=== PATIENT | male | born 1955 | race American Indian/Alaskan Native ===

== ENCOUNTER 2016-07-10 09:35 | Day surgery (SDC) | payer MEDICAID ==
[2016-07-10 10:06] VITALS: BP 132/104
[2016-07-10] MEDS ORDERED: DIPRIVAN 10 MG/ML IV ONE (10:32)
== END 2016-07-10 10:45 | disposition home or self-care (01) ==
LOC: OPU 09:35 → EDSTATUS 10:00 → OPU 10:45
PROVIDERS: ATTEND Internal Medicine Cardiovascular Disease
DX: I48.92 Unspecified atrial flutter (principal); Z53.8 Procedure and treatment not carried out for other reasons; I48.91 Unspecified atrial fibrillation; I42.9 Cardiomyopathy, unspecified; I34.0 Nonrheumatic mitral (valve) insufficiency; B19.20 Unspecified viral hepatitis C without hepatic coma; I12.0 Hypertensive chronic kidney disease with stage 5 chronic kidney disease or end stage renal disease; N18.6 End stage renal disease; Z99.2 Dependence on renal dialysis; Z82.49 Family history of ischemic heart disease and other diseases of the circulatory system
CPT/HCPCS: 93005; 93010; J2704

== ENCOUNTER 2016-09-23 15:41 | Inpatient (IN) | payer MEDICAID ==
[2016-09-23 16:45] LABS: Basophils % (Auto) 0.4 % (0.0-1.8); Eosinophils % (Auto) 0.4 % (0.0-4.3); Hematocrit 43.3 % (35.5-45.6); Hemoglobin 13.9 gm/dl (11.8-15.2); Mean Corpuscular HGB Conc 32 % (32-34); Mean Corpuscular Hemoglobin 30 pg (28-32); Mean Corpuscular Volume 92 fl (84-94); Platelet Count 161 K/mm3 (140-440); Red Blood Count 4.72 M/mm3 (3.65-5.03); Red Cell Distribution Width 15.6 % (13.2-15.2)
[2016-09-23 17:04] LABS: BUN/Creatinine Ratio 5.44; Calcium 9.1 mg/dL (8.4-10.2); Chloride 94.2 mmol/L (98-107); Potassium 5.6 mmol/L (3.6-5.0)
[2016-09-23] MEDS ORDERED: KIONEX PO ONE (22:17)
[2016-09-23] MEDS ORDERED: PROVENTIL IH ONE (22:17)
--- NOTE | 2016-09-23 22:28 | Emergency Department Report ---
HPI - General Chief Complaint: Syncope Time Seen by Provider: 09/23/16 21:52 - HPI HPI: This is a 61-year-old Afro-[place] male presents to the emergency department from home with complaint of multiple episodes of dizziness and one episode of syncope. Patient says that he has been feeling dizzy and hot and around 2:00 this afternoon he passed out on his way to the bathroom. He woke up and was calling for his nephew but they were not there. He was eventually able to get the attention of someone outside of his house and/or apartment who called EMS. Patient currently just complains of some intermittent dizziness but denies any chest pain, headache, vision change or any neurological deficits. Patient had some shortness of breath just prior to passing out as well. The patient is end- stage renal disease on Thursday, Thursday and Thursday but says he has missed his last dialysis session and last had it on Thursday. His repair operator is Dr. Dunn and his hot blast worker is Dr. [email or web address]. He has not taken anything for symptoms prior to presentation. The patient has a history of atrial fibrillation and is on Eloquist, as he has been for the last month, and says he takes it compliantly. He also has a history of CHF, hypertension. He gets dialysis from a right chest port. ED Past Medical Hx - Past Medical History Previous Medical History?: Yes Hx Hypertension: Yes Hx Congestive Heart Failure: Yes Hx Renal Disease: Yes (ESRD dailysis M,W, F) Hx HIV: No Additional medical history: ATRIAL FIB. SINUS TACHYCARDIA - Surgical History Past Surgical History?: Yes Additional Surgical History: PD access to left lower abdomen. hernia repair, permacath - Social History Smoking Status: Never Smoker Substance Use Type: None - Medications Home Medications: Home Medications Medication Instructions Recorded Confirmed Last Taken Type Apixaban [Eliquis] 2.5 mg PO QDAY #30 tablet 08/08/16 09/23/16 Rx Losartan [Cozaar] 50 mg PO QDAY #30 tablet 08/08/16 09/23/16 Rx Metoprolol Tartrate [Lopressor] 50 mg PO TID #90 tablet 08/08/16 09/23/16 Rx amLODIPine [Norvasc] 10 mg PO DAILY #30 tablet 08/08/16 09/23/16 Rx oxyCODONE /ACETAMINOPHEN [Percocet 1 tab PO Q6H PRN #10 tablet 08/08/16 Rx 5/325 mg] Cinacalcet [Sensipar] 30 mg PO QDAY 09/23/16 09/23/16 09/23/16 History Ondansetron [Zofran TAB] 4 mg PO Q8HR PRN 09/23/16 09/23/16 09/23/16 History ED Review of Systems ROS: Stated complaint: SOB/PASSED OUT Other details as noted in HPI Comment: All other systems reviewed and negative Constitutional: denies: chills, fever Eyes: denies: eye pain, eye discharge, vision change ENT: denies: ear pain, throat pain Respiratory: shortness of breath. denies: cough Cardiovascular: syncope. denies: chest pain Gastrointestinal: denies: abdominal pain, nausea, diarrhea Genitourinary: denies: urgency, dysuria Musculoskeletal: denies: back pain, joint swelling, arthralgia Skin: denies: rash, lesions Neurological: other (dizziness, lightheadedness). denies: numbness Physical Exam - Physical Exam Vital Signs: Vital Signs 09/23/16 09/23/16 09/23/16 16:08 21:44 21:46 Temperature 97.4 F L Pulse Rate 59 L 103 H 111 H Respiratory 24 27 H 16 Rate Blood Pressure 112/80 O2 Sat by Pulse 96 Oximetry 09/23/16 09/23/16 09/23/16 21:50 21:56 22:01 Temperature Pulse Rate 97 H 107 H Respiratory 23 23 Rate Blood Pressure O2 Sat by Pulse 85 99 Oximetry Physical Exam: GENERAL: The patient is well-developed well-nourished. HEENT: Normocephalic. Atraumatic. Extraocular motions are intact. Patient has moist mucous membranes. Pupils equal reactive to light bilaterally. No nystagmus. NECK: Supple. Trachea is midline. CHEST/LUNGS: Coarse breath sounds with the chest. No tachypnea or accessory muscle use. There is a right-sided chest wall port. There is no respiratory distress noted. HEART/CARDIOVASCULAR: Regular. There is no tachycardia. There is no gallop rub or murmur. ABDOMEN: Abdomen is soft, nontender. Patient has normal bowel sounds. There is no abdominal distention. SKIN: Skin is warm and dry. NEURO: The patient is awake, alert, and oriented. The patient is cooperative. The patient has no focal neurologic deficits. The patient has normal speech. Cranial nerves II through XII grossly intact. No pronator drift. No dysmetria. MUSCULOSKELETAL: There is no tenderness or deformity. There is no limitation range of motion. There is no evidence of acute injury. ED Course Vital Signs 09/23/16 09/23/16 09/23/16 16:08 21:44 21:46 Temperature 97.4 F L Pulse Rate 59 L 103 H 111 H Respiratory 24 27 H 16 Rate Blood Pressure 112/80 O2 Sat by Pulse 96 Oximetry 09/23/16 09/23/16 09/23/16 21:50 21:56 22:01 Temperature Pulse Rate 97 H 107 H Respiratory 23 23 Rate Blood Pressure O2 Sat by Pulse 85 99 Oximetry - Consultations Consultation #1: I spoke with Dr. Hughes, the repair operator on-call for the patient's nephrology service, who agrees with the plan for Kayexalate, albuterol and the patient will get dialysis tomorrow. 09/23/16 23:21 ED Medical Decision Making - Lab Data Result diagrams: 09/23/16 16:30 09/23/16 16:30 - EKG Data -: EKG Interpreted by Me EKG shows normal: axis, intervals, QRS complexes, ST-T waves (T-wave inversions to the lateral leads) Rate: normal - EKG Data When compared to previous EKG there are: changes noted (previous EKG was sinus rhythm while current EKG is atrial fibrillation) Interpretation: other (atrial fibrillation with normal rate, normal axis, T- wave inversion to the lateral leads) - Radiology Data Radiology results: report reviewed, image reviewed interpreted by me: Chest x-ray shows mild cardiomegaly but no obvious pleural effusions or pneumonia. CT of the head does not show any acute process including no hemorrhage, mass, shift, diffuse edema or skull fracture. There is some cerebral and cerebellar atrophy. - Medical Decision Making 61-year-old male presents the emergency department with complaint of dizziness as well as one episode of syncope. Patient missed his last dialysis session. Labs show some hypokalemia for which he was given Kayexalate and albuterol. CT of the head does not show any acute intercranial process. Chest x-ray does not show severe volume overload. Nephrology is aware and Dr. Hughes has said the patient will get dialysis tomorrow. Patient's vital signs stable throughout his ED course. Patient will be admitted to hospital for further evaluation and treatment and has been accepted for admission by the hospitalist, Dr. Martini. - Differential Diagnosis vasovagal, orthostatic hypertension, TIA, brain bleed, hyperkalemia Critical Care Time: No Critical care attestation.: If time is entered above; I have spent that time in minutes in the direct care of this critically ill patient, excluding procedure time. ED Disposition Clinical Impression: End-stage renal disease needing dialysis, Hyperkalemia, Dizziness Syncope Qualifiers: Syncope type: unspecified Qualified Code(s): R55 - Syncope and collapse Disposition: OP ADMITTED IP TO THIS HOSP Is pt being admited?: Yes Condition: Stable Time of Disposition: 01:03
--- NOTE | 2016-09-23 23:06 | Cat Scan Report ---
FINAL REPORT EXAM: CT HEAD/BRAIN WO CON HISTORY: Syncope TECHNIQUE: Standard unenhanced CT of the head at 5.0 millimeter axial increments. PRIORS: None. FINDINGS: The ventricular system is normal in size and configuration. There is mild cerebral and cerebellar atrophy. There is no evidence for mass lesion, mass effect, midline shift, acute intracranial hemorrhage, or acute ischemia/ infarction. No evidence for acute skull fracture is seen. No abnormality in the overlying scalp soft tissues is seen. Visualized paranasal sinuses are clear. IMPRESSION: No acute intracranial process noted. Cerebral and cerebellar atrophy
[2016-09-24] MEDS ORDERED: DULCOLAX PR PRN (00:27)
[2016-09-24] MEDS ORDERED: TYLENOL PO PRN (00:27)
[2016-09-24] MEDS ORDERED: ZOFRAN IV PRN (00:27)
[2016-09-24] MEDS ORDERED: MILK OF MAGNESIA PO PRN (00:27)
[2016-09-24] MEDS ORDERED: PERCOCET 5/325 PO PRN (00:33)
--- NOTE | 2016-09-24 00:40 | History and Physical Report ---
History of Present Illness Date of examination: 09/24/16 History of present illness: 61-year-old man with a history of A. fib/flutter, hypertension, hyperlipidemia, end-stage renal disease on dialysis comes emergency room with complaints of shortness of breath. The patient missed his dialysis today because he had to go to court. Patient states that this morning at 3 AM he took all his medication, his blood pressure prior to taking the medication was systolic 127. Several minutes later, patient felt hot, he got up out of bed to use the bathroom and had a syncopal episode, it's unclear how long he passed out for Patient denies chest pain, palpitation, shortness of breath, cough, abdominal pain, hematochezia, dysuria, frequency, focal weakness, dysarthria, fever chills , polydipsia polyuria, hot or cold intolerance, easy bruisability, or rash or bleeding from mucosal membrane, rhinorrhea, epistaxis, earache, tinnitus, blurry vision, eye discharge, anxiety, depression. Other review of systems negative PAST SURGICAL HISTORY: Hernia repair SOCIAL HISTORY: Denies alcohol, tobacco, drugs FAMILY HISTORY: Hypertension Medications and Allergies Allergies Allergy/AdvReac Type Severity Reaction Status Date / Time hydralazine Allergy Unknown Verified 08/07/16 09:21 Home Medications Medication Instructions Recorded Confirmed Last Taken Type Apixaban [Eliquis] 2.5 mg PO QDAY #30 tablet 08/08/16 09/23/16 Rx Losartan [Cozaar] 50 mg PO QDAY #30 tablet 08/08/16 09/23/16 Rx Metoprolol Tartrate [Lopressor] 50 mg PO TID #90 tablet 08/08/16 09/23/16 Rx amLODIPine [Norvasc] 10 mg PO DAILY #30 tablet 08/08/16 09/23/16 Rx oxyCODONE /ACETAMINOPHEN [Percocet 1 tab PO Q6H PRN #10 tablet 08/08/16 Rx 5/325 mg] Cinacalcet [Sensipar] 30 mg PO QDAY 09/23/16 09/23/16 09/23/16 History Ondansetron [Zofran TAB] 4 mg PO Q8HR PRN 09/23/16 09/23/16 09/23/16 History Active Meds: Active Medications Acetaminophen (Tylenol) 650 mg PO Q4H PRN PRN Reason: Pain MILD(1-3)/Fever >100.5/IQBAL Apixaban (Eliquis) 2.5 mg PO QDAY EMBER Bisacodyl (Dulcolax) 10 mg MA QDAY PRN PRN Reason: Constipation unrelieved by MOM Cinacalcet (Sensipar) 30 mg PO QDAY EMBER Magnesium Hydroxide (Milk Of Magnesia) 30 ml PO Q4H PRN PRN Reason: Constipation Ondansetron HCl (Zofran) 4 mg IV Q8H PRN PRN Reason: N/V unrelieved by Reglan Oxycodone/Acetaminophen (Percocet 5/325) 1 tab PO Q6H PRN PRN Reason: Pain, Moderate (4-6) Oxycodone/Acetaminophen (Percocet 5/325) 1 tab PO Q6H PRN PRN Reason: Pain, Moderate (4-6) Exam - Physical Exam Narrative exam: Gen. appearance: Patient lying in bed, no apparent distress HEENT: Normocephalic, atraumatic, pupils equally round and reactive to light, extraocular movement intact, and no sclericterus,. No JVD or thyromegaly or nodule,neck supple, no carotid bruit ,mucous membranes moist, no exudate or erythema Heart: S1, S2, regular rate and rhythm Lungs: Clear to auscultation bilaterally, breathing comfortable Abdomen: Positive bowel sounds, nontender, nondistended, no organomegaly Extremity: No edema, cyanosis, clubbing Skin: No rash, nodules, warm, dry Neuro: Oriented 3, cranial nerves II-12 intact, speech is fluent, motor and sensory intact - Constitutional Vitals: Temp Pulse Resp BP Pulse Ox 97.4 F L 72 21 122/85 100 09/23/16 16:08 09/24/16 00:20 09/24/16 00:20 09/24/16 00:20 09/24/16 00:20 Results - Labs CBC & Chem 7: 09/23/16 16:30 09/23/16 16:30 Labs: Abnormal lab results 09/23/16 09/23/16 09/23/16 Range/Units 16:09 16:30 16:30 RDW 15.6 H (13.2-15.2) % [place] % (Auto) 9.1 H (0.0-7.3) % Lymph # 0.8 L (1.2-5.4) K/mm3 Seg Neutrophils % 74.8 H (40.0-70.0) % Sodium 136 L (137-145) mmol/L Potassium 5.6 H (3.6-5.0) mmol/L Chloride 94.2 L (98-107) mmol/L Carbon Dioxide 15 L (22-30) mmol/L BUN 85 H (9-20) mg/dL Creatinine 15.6 H (0.8-1.5) mg/dL Glucose 115 H (75-100) mg/dL POC Glucose 123 H (70-105) Troponin T 0.126 H* (0.00-0.029) ng/mL HDL Cholesterol 60 H (40-59) mg/dL 09/23/16 09/23/16 Range/Units 20:52 22:35 RDW (13.2-15.2) % [place] % (Auto) (0.0-7.3) % Lymph # (1.2-5.4) K/mm3 Seg Neutrophils % (40.0-70.0) % Sodium (137-145) mmol/L Potassium (3.6-5.0) mmol/L Chloride (98-107) mmol/L Carbon Dioxide (22-30) mmol/L BUN (9-20) mg/dL Creatinine (0.8-1.5) mg/dL Glucose (75-100) mg/dL POC Glucose (70-105) Troponin T 0.125 H* 0.126 H* (0.00-0.029) ng/mL HDL Cholesterol (40-59) mg/dL - Imaging and Cardiology EKG: image reviewed Chest x-ray: image reviewed CT Scan - head: report reviewed Assessment and Plan Fluid overload needing dialysis End-stage renal disease on dialysis Syncope, probably due to hypotension History of hypertension now normotensive Hyperlipidemia Admits medicine Consult renal for dialysis Check cardiac enzymes, d-dimer, echo, carotid Doppler Continue Procrit outpatient medication, hold antihypertensive DVT prophylaxis with eliquis D-dimer elevated, check V/Q
[2016-09-24 01:56] LABS: Creatine Kinase MB 7.2 ng/mL (0.0-4.0)
--- NOTE | 2016-09-24 08:02 | XRay Report ---
AP CHEST History: Shortness of breath. Findings: Mild cardiomegaly and borderline pulmonary vascularity are stable since 08/06/16. Trace right pleural effusion has resolved. The lungs are clear. The bony thorax is grossly intact. Right IJ venous catheter remains in good position. Impression: Cardiomegaly. Lungs clear.
--- NOTE | 2016-09-24 08:11 | Nuclear Medicine Report ---
LUNG SCAN, VENTILATION AND PERFUSION: History: Shortness of breath, syncope. Technique: 5mci of Tc99m MAA was infused for the perfusion images. 15mci XE 133 gas was inhaled for the ventilatory images. Correlation is made with a chest x-ray dated 09/23/16 at 2327 hrs. Findings: Inhalation of Xenon gas demonstrates a normal distribution of the activity throughout both lungs. The wash out phases show minimal retention of the radiotracer at the left lung base. After injection of Technetium 99m macroaggregated albumin gamma camera imaging of the lungs in multiple projections demonstrates a solitary mismatched perfusion defect in the lateral right lower lobe. Which is best demonstrated on the right anterior oblique image. There is relatively homogeneous distribution of radiotracer throughout the remainder of the lungs. IMPRESSION: Intermediate probability for pulmonary embolus. There is a solitary mismatched perfusion defect in the lateral segment of the right lower lobe. Please correlate with the patient and consider further imaging with CTA chest.
[2016-09-24] MEDS ORDERED: HEPARIN 10,000 UNITS/10 ML IV PRN (10:00)
[2016-09-24] MEDS ORDERED: LOVENOX SUB-Q SCH (10:00)
[2016-09-24] MEDS ORDERED: ELIQUIS PO SCH (10:00)
[2016-09-24] MEDS ORDERED: HEPARIN IV PRN (10:00)
[2016-09-24] MEDS ORDERED: NACL 0.9% 100 ML IV PRN (10:00)
[2016-09-24] MEDS: SENSIPAR PO SCH (10:44)
[2016-09-24] MEDS: PERCOCET 5/325 PO PRN (10:44)
[2016-09-24] MEDS: ELIQUIS PO SCH ×2 (10:45→22:05)
--- NOTE | 2016-09-24 11:14 | Admit Criteria Form ---
Admission Criteria Documentation: SYNCOPE Clinical Indications for Admission to Inpatient Care ( Place 'X' for any and all applicable criteria): Admission is indicated for syncope and ANY ONE of the following (1)(2)(3)(4)(5) (6)(7) : [X]I. Inpatient admission required rather than observation care (Also use Syncope: Observation Care Criteria as appropriate) because of ANY ONE of the following: [ ]a) Hemodynamic instability that is severe or persistent [ ]b) Cardiac arrhythmias of immediate concern identified or strongly suspected (eg, needs electrophysiologic study) [ ]c) Acute coronary syndrome identified (Also use Myocardial Infarction or Angina Criteria form ) [ ]d) Structural cardiac disorder (eg, aortic stenosis) suspected as cause that requires immediate correction [ ]e) Respiratory symptoms (eg, dyspnea, tachypnea) that are severe or persistent [ ]f) Neurologic signs or symptoms that are severe or persistent ( eg, stroke, seizures, altered mental status) [ ]g) Severe electrolyte abnormalities requiring inpatient care [ ]h) Supplemental oxygen or respiratory treatment for over 24 hrs that are performable only in acute inpatient setting [ ]i) IV fluid to replace significant ongoing (eg, for over 24 hrs ) losses (>3 L/m2 per day) [ ]j) Continuous intravenous infusion of anticoagulation, platelet inhibitor, vasoactive, or antiarrhythmic medication(15)(16) [ ]k) Pulmonary artery catheter monitoring [ ]l) Temporary pacemaker placement(17) [ ]m) Emergent cardioversion(18) [X]n) Other conditions, treatment or monitoring requiring inpatient admission [ ]II. Suspicion of imminently dangerous cause (eg, rare causes like pericardial tamponade, pulmonary embolism) [ ]III. Syncope causing severe injury requiring hospitalization Extended stay beyond goal length of stay may be needed for(28) [ ]a) Dangerous arrhythmia(15)(23)(27)(29) [ ]b) Myocardial ischemia [ ]c) Seizure disorder [ ]d) Syncope-related injuries The original [employer] content created by [email or web address] has been revised. The portions of the content which have been revised are identified through the use of italic text or in bold, and Megan [email or web address] has neither reviewed nor approved the modified material. All other unmodified content is copyright [email or web address] [email or web address]. Please see references footnoted in the original [facility] edition 2016 Admission Criteria Met: Yes
[2016-09-24 12:00] LABS: Creatine Kinase MB 6.5 ng/mL (0.0-4.0)
--- NOTE | 2016-09-24 12:28 | Progress Note ---
Assessment and Plan Assessment and plan: Patient 59-year-old man history of p. A. fib/a flutter, hypertension, end-stage renal disease on HD and dyslipidemia who missed dialysis and presented with a syncopal episode. VQ scan: Intermediate probability of PE there is a solitary mismatch perfusion defect lateral segment right lower lobe consider CTA chest 2-D echo: Mild to moderate dilatated left ventricle, estimated EF 10-15%, left atrium is severely dilated, right ventricle is mild to moderately dilated, right ventricular global systolic function is severely reduced, right atrium is mild to moderately dilated, severe mitral regurgitation, moderate tricuspid regurgitation, moderate pulmonic regurgitation inferior vena cava is dilated -Syncope, ?cardiac -End-stage renal disease missing dialysis with hyperkalemia -Atrial fibrillation on Eliquis v/q results reviewed, patient is already on anticoagulation -Severe HFrEF: Cardiology to evaluate History Interval history: Patient seen and examined. Follow up on syncope which are resolved. Overnight uneventful. No cp, sob, n/v or severe headaches. Imaging, old records, testing, labs, nursing notes reviewed. Plan discussed with patient. Hospitalist Physical - Physical exam Narrative exam: GEN: WDWN, NAD, AWAKE, ALERT, ORIENTATED 3 HEENT: NCAT, PERRL, EOMI, OP CLEAR NECK: SUPPLE, NO THYROMEGALY, NO JVD, NO LAD CVS: RRR, NORMAL S1S2 LUNGS/CHEST: NORMAL CHEST EXPANSION B, GOOD AIR ENTRY B ABD: SOFT NTND, GBS, NO REBOUND OR GUARDING MSK: FROM X 4 EXTREMITIES NEURO: CN 2-12 GROSSLY INTACT, NO new FOCAL DEFICITS PSY: CALM - Constitutional Vitals: Temp Pulse Resp BP Pulse Ox 97.5 F L 77 16 125/101 98 09/24/16 10:46 09/24/16 10:46 09/24/16 10:46 09/24/16 10:46 09/24/16 10:46 Results - Labs CBC & Chem 7: 09/23/16 16:30 09/23/16 16:30 Labs: Laboratory Last Values WBC 5.0 K/mm3 (4.5-11.0) 09/23/16 16:30 RBC 4.72 M/mm3 (3.65-5.03) 09/23/16 16:30 Hgb 13.9 gm/dl (11.8-15.2) 09/23/16 16:30 Hct 43.3 % (35.5-45.6) 09/23/16 16:30 MCV 92 fl (84-94) 09/23/16 16:30 MCH 30 pg (28-32) 09/23/16 16:30 MCHC 32 % (32-34) 09/23/16 16:30 RDW 15.6 % (13.2-15.2) H 09/23/16 16:30 Plt Count 161 K/mm3 (140-440) 09/23/16 16:30 Lymph % (Auto) 15.3 % (13.4-35.0) 09/23/16 16:30 Ada % (Auto) 9.1 % (0.0-7.3) H 09/23/16 16:30 Eos % (Auto) 0.4 % (0.0-4.3) 09/23/16 16:30 Baso % (Auto) 0.4 % (0.0-1.8) 09/23/16 16:30 Lymph # 0.8 K/mm3 (1.2-5.4) L 09/23/16 16:30 Ada # 0.5 K/mm3 (0.0-0.8) 09/23/16 16:30 Eos # 0.0 K/mm3 (0.0-0.4) 09/23/16 16:30 Baso # 0.0 K/mm3 (0.0-0.1) 09/23/16 16:30 Seg Neutrophils % 74.8 % (40.0-70.0) H 09/23/16 16:30 Seg Neutrophils # 3.7 K/mm3 (1.8-7.7) 09/23/16 16:30 D-Dimer 1094.77 ng/mlDDU (0-234) H 09/24/16 00:38 Sodium 136 mmol/L (137-145) L 09/23/16 16:30 Potassium 5.6 mmol/L (3.6-5.0) H 09/23/16 16:30 Chloride 94.2 mmol/L (98-107) L 09/23/16 16:30 Carbon Dioxide 15 mmol/L (22-30) L 09/23/16 16:30 Anion Gap 32 mmol/L 09/23/16 16:30 BUN 85 mg/dL (9-20) H 09/23/16 16:30 Creatinine 15.6 mg/dL (0.8-1.5) H 09/23/16 16:30 Estimated GFR 4 ml/min 09/23/16 16:30 BUN/Creatinine Ratio 5.44 % 09/23/16 16:30 Glucose 115 mg/dL (75-100) H 09/23/16 16:30 POC Glucose 123 (70-105) H 09/23/16 16:09 Calcium 9.1 mg/dL (8.4-10.2) 09/23/16 16:30 Total Creatine Kinase 123 units/L (55-170) 09/24/16 10:43 CK-MB (CK-2) 6.5 ng/mL (0.0-4.0) H 09/24/16 10:43 CK-MB (CK-2) Rel Index 5.2 (0-4) H 09/24/16 10:43 Troponin T 0.128 ng/mL (0.00-0.029) H* 09/24/16 10:43 Triglycerides 77 mg/dL (2-149) 09/23/16 16:30 Cholesterol 145 mg/dL (50-199) 09/23/16 16:30 LDL Cholesterol Direct 70 mg/dL (50-130) 09/23/16 16:30 HDL Cholesterol 60 mg/dL (40-59) H 09/23/16 16:30 Cholesterol/HDL Ratio 2.41 % 09/23/16 16:30
[2016-09-24] MEDS ORDERED: NACL 0.9 (PRIMING MACHINE ONLY DIALYSIS) MC ONE (16:20)
--- NOTE | 2016-09-24 19:22 | Consultation ---
History of Present Illness - Reason for Consult Consult date: 09/24/16 end stage renal disease Requesting physician: CARLIE SANCHEZ - History of Present Illness 61-year-old male who is well known to me with a history of end-stage renal disease, hypertension, chronic systolic heart failure and hepatitis C. Patient has a history of noncompliance with medical treatments. He has had numerous hospitalizations with fluid overload secondary to missed dialysis. Patient was on peritoneal dialysis but is now on hemodialysis after episodes of peritonitis. Patient stated he was doing well but his girlfriend put his medications into a pillbox. Unfortunately he was inadvertently receiving 3 pills of metoprolol 50 mg as he had 3 bottles. He would feel hot and dizzy after taking his medications. Patient states the same thing happened on Thursday at about 3 AM. He was praying hard for "the Lord to help him". He got up to go to the bathroom and woke up on the floor. Apparently had passed out falling backwards. He managed to drag himself to the bed and called for help. Patient was brought to the emergency room for further management. He now complains of low back pain which is nonradiating but worse on coughing and sneezing. No numbness or tingling in his legs or feet. Further inquiry, admits to right- sided chest pain but no palpitations and lower extremity swelling. I am consulted to assist in providing dialysis and manage his fluid and electrolyte abnormalities. Potassium was high at 5.6 mmol per liter on presentation. BUN and creatinine were also elevated at 85/15 mg/dL. Patient missed dialysis on Thursday because he has to go to court. He denies missing any other dialysis treatment recently. 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 Patient lives with his girl friend). denies: smoking, alcohol abuse , prescription drug abuse, IV drug use Family history: CAD (father of heart disease at age 94), other (mother of unknown cause at age 87) Medications and Allergies Allergies Allergy/AdvReac Type Severity Reaction Status Date / Time hydralazine Allergy Unknown Verified 08/07/16 09:21 Home Medications Medication Instructions Recorded Confirmed Last Taken Type Apixaban [Eliquis] 2.5 mg PO QDAY #30 tablet 08/08/16 09/24/16 09/23/16 Rx Losartan [Cozaar] 50 mg PO QDAY #30 tablet 08/08/16 09/24/16 09/23/16 Rx amLODIPine [Norvasc] 10 mg PO DAILY #30 tablet 08/08/16 09/24/16 09/23/16 Rx Cinacalcet [Sensipar] 30 mg PO QDAY 09/23/16 09/23/16 09/23/16 History Ondansetron [Zofran TAB] 4 mg PO Q8HR PRN 09/23/16 09/23/16 09/23/16 History Metoprolol Xl [Metoprolol 50 mg PO QDAY 09/24/16 09/24/16 1 Day Ago History SUCCINATE ER TAB] oxyCODONE /ACETAMINOPHEN [Percocet 1 tab PO DAILY PRN 09/24/16 09/24/16 1 Day Ago History 5/325] Active Meds: Active Medications Acetaminophen (Tylenol) 650 mg PO Q4H PRN PRN Reason: Pain MILD(1-3)/Fever >100.5/IQBAL Apixaban (Eliquis) 2.5 mg PO BID [facility] Last Admin: 09/24/16 10:45 Dose: 2.5 mg Bisacodyl (Dulcolax) 10 mg ND QDAY PRN PRN Reason: Constipation unrelieved by MOM Cinacalcet (Sensipar) 30 mg PO QDAY [facility] Last Admin: 09/24/16 10:44 Dose: 30 mg Epoetin Antonio (Epogen) 20,000 unit IV NAOMI PRN PRN Reason: hemodialysis Last Admin: 09/24/16 18:17 Dose: 20,000 unit Heparin Sodium (Porcine) (Heparin 10,000 Units/10 Ml) 1,000 unit IV NAOMI PRN PRN Reason: hemodialysis Heparin Sodium (Porcine) (Heparin) 5,000 unit IV NAOMI PRN PRN Reason: hemodialysis Last Admin: 09/24/16 18:21 Dose: 5,000 unit Sodium Chloride (Nacl 0.9%) 100 mls @ 999 mls/hr IV NAOMI PRN PRN Reason: Hypotension Magnesium Hydroxide (Milk Of Magnesia) 30 ml PO Q4H PRN PRN Reason: Constipation Ondansetron HCl (Zofran) 4 mg IV Q8H PRN PRN Reason: N/V unrelieved by Reglan Oxycodone/Acetaminophen (Percocet 5/325) 1 tab PO Q6H PRN PRN Reason: Pain, Moderate (4-6) Last Admin: 09/24/16 10:44 Dose: 1 tab Review of Systems All systems: negative (Constitutional: no fever or chills. No anorexia or weight loss. HEENT: No sore throat admits to sinus drainage no hearing or vision impairment . Cardiovascular: See history of present illness Respiratory : No cough, sputum, shortness of breath, hemoptysis or wheezing. Gastrointestinal: No nausea, vomiting, diarrhea, abdominal pain, hematemesis or melena. Genitourinary: No frequency or urgency. He makes very little urine but has occasional dysuria. No hematuria. hematologic: No abnormal bleeding or bruising. Integumentary: Admits to itching but no rash. Neurological: No headache no focal weakness or numbness, No seizures. Had episodes of dizziness and a syncopal episode as noted any history of present illness. Musculoskeletal : No joint pains no stiffness. Psychiatry: no anxiety or depression) Exam - Vital Signs Vital signs: Vital Signs Temp Pulse Resp BP Pulse Ox 97.4 F L 59 L 24 112/80 96 09/23/16 16:08 09/23/16 16:08 09/23/16 16:08 09/23/16 16:08 09/23/16 16:08 - Physical Exam Narrative exam: Middle-aged -[place] male lying in bed in no acute distress HEENT normocephalic atraumatic, pupils equal reactive to light, pink, clear oropharynx, numerous missing teeth Neck supple, no thyromegaly no jugular venous distention CVS S1-S2 regular rate rhythm without murmur, rub or gallop Chest clear to auscultation Abdomen soft nondistended nontender no organomegaly no bruit bowel sounds present Extremities no edema no cyanosis or clubbing Genitourinary deferred Neuro awake, alert oriented x3 no gross deficit Results - Lab Results 09/23/16 16:30 09/23/16 16:30 Most recent lab results Calcium 9.1 mg/dL (8.4-10.2) 09/23/16 16:30 Assessment and Plan - Patient Problems (1) Syncope Current Visit: Yes Status: Acute Qualifiers: Syncope type: unspecified Encounter type: E Qualified Code(s): R55 - Syncope and collapse Plan to address problem: Syncope secondary to hypotension due to inadvertent receiving 3 doses of metoprolol at the time. Blood pressure has improved. Patient is now aware of the problem and we'll take his medications from the pill bottles from now on. (2) Hyperkalemia Current Visit: Yes Status: Acute Plan to address problem: Hyperkalemia secondary to missed dialysis. I called was called by the ER physician last night. I prescribed Kayexalate. Patient received Kayexalate yesterday with improvement in potassium. Follow potassium in the morning after dialysis today (3) Low back pain Current Visit: Yes Status: Acute Qualifiers: Chronicity: C Back pain laterality: B Sciatica presence: S Sciatica laterality: S Plan to address problem: With the severity of the pain worse on coughing and sneezing, we will get plain x-rays of the low back (4) Chronic systolic congestive heart failure Current Visit: Yes Status: Acute Plan to address problem: Continue DARREN inhibitor, beta rochelle and fluid removal on dialysis. Appears to be stable. Chest x-ray is clear (5) End stage renal disease on dialysis Current Visit: No Status: Chronic Plan to address problem: Increase BUN and creatinine (azotemia) secondary to missed dialysis. Reinforced importance of adhering to his dialysis regimen. We'll need another dialysis treatment tomorrow if azotemia and acidosis not significantly better after dialysis today. (6) Metabolic acidosis Current Visit: Yes Status: Acute Plan to address problem: Metabolic acidosis secondary to missed dialysis. Follow bicarbonate in the morning after dialysis
[2016-09-25 07:16] LABS: Basophils % (Auto) 0.4 % (0.0-1.8); Eosinophils % (Auto) 0.9 % (0.0-4.3); Mean Corpuscular HGB Conc 33 % (32-34); Mean Corpuscular Hemoglobin 30 pg (28-32); Platelet Count 145 K/mm3 (140-440); Red Blood Count 4.03 M/mm3 (3.65-5.03); Red Cell Distribution Width 14.9 % (13.2-15.2); White Blood Count 5.8 K/mm3 (4.5-11.0)
[2016-09-25 07:24] LABS: Mean Corpuscular Volume 90 fl (84-94)
[2016-09-25 07:34] LABS: BUN/Creatinine Ratio 4.95; Chloride 95.8 mmol/L (98-107); Potassium 3.5 mmol/L (3.6-5.0)
[2016-09-25 08:01] VITALS: BP 119/70
--- NOTE | 2016-09-25 08:45 | Progress Note ---
Assessment and Plan - Patient Problems (1) Syncope Status: Acute Qualifiers: Syncope type: unspecified Encounter type: E Qualified Code(s): R55 - Syncope and collapse Plan to address problem: Syncope secondary to hypotension due to inadvertent receiving 3 doses of metoprolol at the time. Blood pressure has improved. Patient is now aware of the problem and we'll take his medications from the pill bottles from now on. (2) Hyperkalemia Status: Acute Plan to address problem: Hyperkalemia secondary to missed dialysis. I called was called by the ER physician last night. I prescribed Kayexalate. Patient received Kayexalate yesterday with improvement in potassium. Follow potassium in the morning after dialysis today (3) Low back pain Status: Acute Qualifiers: Chronicity: C Back pain laterality: B Sciatica presence: S Sciatica laterality: S Plan to address problem: With the severity of the pain worse on coughing and sneezing, we will get plain x-rays of the low back (4) Chronic systolic congestive heart failure Status: Acute Plan to address problem: Continue DARREN inhibitor, beta rochelle and fluid removal on dialysis. Appears to be stable. Chest x-ray is clear (5) End stage renal disease on dialysis Status: Chronic Plan to address problem: Continue hemodialysis on a Thursday, Thursday and Thursday schedule. Can resume tomorrow. (6) Metabolic acidosis Status: Acute Plan to address problem: Metabolic acidosis secondary to missed dialysis. Improved with dialysis Subjective Date of service: 09/25/16 Principal diagnosis: stage renal disease Interval history: Patient seen lying in bed. He feels better. Still complaining of back pain Objective - Exam Narrative Exam: Middle-aged -[place] male lying in bed in no acute distress CVS S1-S2 regular rate rhythm without murmur, rub or gallop Chest clear to auscultation Abdomen soft nondistended nontender no organomegaly no bruit bowel sounds present Extremities no edema no cyanosis or clubbing Neuro awake, alert oriented x3 no gross deficit - Vital Signs Vital signs: Vital Signs - 12hr 09/24/16 09/24/16 09/25/16 21:17 22:32 01:09 Temperature 97.4 F L 98.3 F Pulse Rate [ 84 Right Posterior Tibial] Pulse Rate [ 88 Right Radial] Respiratory 20 20 Rate Blood Pressure 149/84 132/88 [Left Arm] O2 Sat by Pulse 97 95 98 Oximetry 09/25/16 08:00 Temperature 98.0 F Pulse Rate [ 89 Right Posterior Tibial] Pulse Rate [ Right Radial] Respiratory 20 Rate Blood Pressure 119/70 [Left Arm] O2 Sat by Pulse 99 Oximetry - Lab 09/25/16 06:41 09/25/16 06:41 Most recent lab results Calcium 8.0 mg/dL (8.4-10.2) L 09/25/16 06:41
--- NOTE | 2016-09-25 09:59 | XRay Report ---
LUMBOSACRAL SPINE, 3 VIEWS: HISTORY: Back pain FINDINGS: No comparison. Mild osteopenia. An acute L2 superior endplate fracture is identified with 10% loss of height. There appears to be a chronic L1 superior endplate fracture with 20% loss of height. The remaining lumbar vertebra are normal height. There is a mild dextrorotoscoliosis in the lumbar region measuring approximately 5 degrees. There is moderate to severe multilevel degenerative disc disease and facet arthropathy. L3-4 and L5-S1 are the most affected levels. The sacrum and SI joints are within normal limits. IMPRESSION: Acute L2 superior endplate fracture with 10% loss of height. Chronic L1 superior endplate fracture with 20% loss of height. Multilevel lumbar spondylosis. Mild osteopenia.
[2016-09-25] MEDS: ELIQUIS PO SCH (10:39)
[2016-09-25] MEDS: PERCOCET 5/325 PO PRN (10:39)
[2016-09-25] MEDS: SENSIPAR PO SCH (10:39)
--- NOTE | 2016-09-25 12:29 | Discharge Summary ---
Providers - Providers Date of Admission: 09/24/16 00:27 Date of discharge: 09/25/16 Attending physician: JOHANNA MEEKS Primary care physician: FINAL INSPECTION SUPERVISOR Hospitalization Condition: Stable Hospital course: Patient 59-year-old man history of p. A. fib/a flutter, hypertension, end-stage renal disease on HD and dyslipidemia who missed dialysis and presented with a syncopal episode. VQ scan: Intermediate probability of PE there is a solitary mismatch perfusion defect lateral segment right lower lobe consider CTA chest 2-D echo: Mild to moderate dilatated left ventricle, estimated EF 10-15%, left atrium is severely dilated, right ventricle is mild to moderately dilated, right ventricular global systolic function is severely reduced, right atrium is mild to moderately dilated, severe mitral regurgitation, moderate tricuspid regurgitation, moderate pulmonic regurgitation inferior vena cava is dilated -Syncope, mostly orthostatic from taking to many metoprolol. yesterday, i went through all of his medication and he had 3 metoprolol bottle which i took out of his bag and laid on the bed. -End-stage renal disease missing dialysis with hyperkalemia -Atrial fibrillation on Eliquis v/q results reviewed, patient is already on anticoagulation -Severe HFrEF, chronic Xray LS shows acute L2 endplate fracture, notified Dr. Hughes to send to Ortho outpatient. Disposition: DISCHARGED TO HOME OR SELFCARE Time spent for discharge: 32 minutes Core Measure Documentation - Palliative Care Palliative Care/ Comfort Measures: Not Applicable - Core Measures Any of the following diagnoses?: none - VTE Discharge Requirements Deep Vein Thrombosis/Pulmonary Embolism Present on Admission: No Has pt received <5 days of overlap therapy or INR<2.0: No Anticoagulant overlap therapy prescribed at discharge: No Contraindication No Overlap Therapy order at DC: Not Indicated Exam - Physical Exam Narrative exam: GEN: WDWN, NAD, AWAKE, ALERT, ORIENTATED 3 HEENT: NCAT, PERRL, EOMI, OP CLEAR NECK: SUPPLE, NO THYROMEGALY, NO JVD, NO LAD CVS: RRR, NORMAL S1S2 LUNGS/CHEST: NORMAL CHEST EXPANSION B, GOOD AIR ENTRY B ABD: SOFT NTND, GBS, NO REBOUND OR GUARDING MSK: FROM X 4 EXTREMITIES NEURO: CN 2-12 GROSSLY INTACT, NO new FOCAL DEFICITS PSY: CALM - Constitutional Vitals: Temp Pulse Resp BP Pulse Ox 98.0 F 89 16 119/70 97 09/25/16 08:00 09/25/16 08:00 09/25/16 10:42 09/25/16 08:00 09/25/16 10:42 Plan Activity: advance as tolerated (no strenous activites until cleared by PCP. ) Diet: renal Follow up with: PRIMARY MD JULIA [Primary Care Provider] - 3-5 Days NANNETTE PÉREZ MD [Staff Physician] - 7 Days
--- NOTE | 2016-09-29 07:27 | Vascular Lab Report ---
CAROTID DUPLEX STUDY: RIGHT PSVEDV CCA PROX:[id number] CCA DIST:4712 ICA PROX:28 9 ICA MID:4216 ICA DIST:4417 ECA: 52 VERT: 31 12 LEFT PSVEDV CCA PROX:5014 CCA DIST:5817 ICA PROX:5612 ICA MID:4920 ICA DIST:6523 ECA: 50 VERT: 30 7 REASON FOR EXAM: Carotid artery stenosis/syncope. COMMENTS ON THE RIGHT: Doppler frequency analysis is consistent with 16 to 49 percent diameter reduction of the internal carotid artery. Minimal amount of plaque is seen. The common carotid artery is patent. The external carotid artery is patent. The vertebral artery has antegrade flow. COMMENTS ON THE LEFT: Doppler frequency analysis is consistent with 16 to 49 percent diameter reduction of the internal carotid artery. Minimal amount of plaque is seen. The common carotid artery is patent. The external carotid artery is patent. The vertebral artery has antegrade flow. IMPRESSION: Less than 50% diameter reduction in the internal carotid arteries bilaterally. Consider repeat carotid artery duplex in 12 months.
== END 2016-09-25 13:51 | disposition home or self-care (01) | DRG 640 ==
LOC: ED 15:41 → 4A 09-24 00:27
PROVIDERS: ADMIT Internal Medicine; ATTEND Internal Medicine
PROC: 5A1D00Z (ICD-10-PCS; principal; 2016-09-24)
DX: E87.5 Hyperkalemia (principal); N18.6 End stage renal disease; E87.2 Acidosis; E87.70 Fluid overload, unspecified; E78.5 Hyperlipidemia, unspecified; I13.2 Hypertensive heart and chronic kidney disease with heart failure and with stage 5 chronic kidney disease, or end stage renal disease; I48.91 Unspecified atrial fibrillation; I95.9 Hypotension, unspecified; B19.20 Unspecified viral hepatitis C without hepatic coma; I50.22 Chronic systolic (congestive) heart failure; Z88.8 Allergy status to other drugs, medicaments and biological substances; Z82.49 Family history of ischemic heart disease and other diseases of the circulatory system
CPT/HCPCS: 36415; 70450; 71010; 72100; 78582; 80048; 80061; 82550; 82553; 82962; 84484; 85025; 85379; 93005; 93010; 93306; 93880; 94760; A9540; A9558; J0885; J1644; J7030

== ENCOUNTER 2016-10-17 05:00 | Inpatient (IN) | payer MEDICAID ==
[2016-10-17] MEDS ORDERED: NACL 0.9% 1000 ML 1,000 ML IV ONE (05:24)
[2016-10-17 06:09] LABS: Basophils % (Auto) 0.7 % (0.0-1.8); Eosinophils % (Auto) 0.5 % (0.0-4.3); Hematocrit 46.8 % (35.5-45.6); Mean Corpuscular HGB Conc 32 % (32-34); Mean Corpuscular Hemoglobin 29 pg (28-32); Mean Corpuscular Volume 92 fl (84-94); Platelet Count 220 K/mm3 (140-440); Red Blood Count 5.11 M/mm3 (3.65-5.03); Red Cell Distribution Width 16.8 % (13.2-15.2); White Blood Count 5.5 K/mm3 (4.5-11.0)
[2016-10-17 06:19] LABS: INR 1.29 (0.87-1.13)
[2016-10-17 06:20] LABS: Partial Thromboplastin Time 30.6 Sec. (24.2-36.6)
[2016-10-17 06:25] LABS: Albumin 4.1 g/dL (3.9-5); BUN/Creatinine Ratio 5.46; Bilirubin,Total 1.2 mg/dL (0.1-1.2); Calcium 10.4 mg/dL (8.4-10.2); Chloride 88.2 mmol/L (98-107); Total Protein 8.2 g/dL (6.3-8.2)
[2016-10-17] MEDS ORDERED: DUONEB 0.5 MG-3 MG/3 ML SOLN IH ONE (06:25)
--- NOTE | 2016-10-17 06:34 | Emergency Department Report ---
HPI - General Chief Complaint: GI Bleed Time Seen by Provider: 10/17/16 05:59 - HPI HPI: This is a 61-year-old -[place] male who presents to the emergency department from home with a few different complaints. The patient says he has a 2-3 day history of some mid to lower abdominal discomfort and shortness of breath. Also, starting this morning, the patient had some rectal bleeding that was both red and dark black. He shortness of breath worsens with exertion but he denies any cough, fever, back pain, chest pain, nausea, vomiting or diaphoresis. The abdominal pain is associated with some mild constipation but he did have a bowel movement earlier today that was small and hard and then he had the rectal bleeding. He has not taken anything for symptoms prior to presentation. He has a history of congestive heart failure, hypertension, end- stage renal disease on dialysis on Thursday/Thursday/Thursday, atrial fibrillation , sinus tachycardia. He currently has a chest port for dialysis but previously had peritoneal dialysis. His international relations professor is , delivery motorcycle driver is Dr. Gomez, his primary care doctor is Dr Cárdenas. No recent travel or sick contacts at home. ED Past Medical Hx - Past Medical History Hx Hypertension: Yes Hx Congestive Heart Failure: Yes Hx Diabetes: No Hx Renal Disease: Yes (ESRD dailysis M,W, F) Hx Asthma: No Hx COPD: No Hx HIV: No Additional medical history: ATRIAL FIB. SINUS TACHYCARDIA - Surgical History Additional Surgical History: PD access to left lower abdomen. hernia repair, permacath - Social History Smoking Status: Never Smoker Substance Use Type: None - Medications Home Medications: Home Medications Medication Instructions Recorded Confirmed Last Taken Type Apixaban [Eliquis] 2.5 mg PO QDAY #30 tablet 08/08/16 09/24/16 09/23/16 Rx Losartan [Cozaar] 50 mg PO QDAY #30 tablet 08/08/16 09/24/16 09/23/16 Rx amLODIPine [Norvasc] 10 mg PO DAILY #30 tablet 08/08/16 09/24/16 09/23/16 Rx Cinacalcet [Sensipar] 30 mg PO QDAY 09/23/16 09/23/16 09/23/16 History Ondansetron [Zofran TAB] 4 mg PO Q8HR PRN 09/23/16 09/23/16 09/23/16 History Metoprolol Xl [Metoprolol 50 mg PO QDAY 09/24/16 09/24/16 1 Day Ago History SUCCINATE ER TAB] oxyCODONE /ACETAMINOPHEN [Percocet 1 tab PO DAILY PRN 09/24/16 09/24/16 1 Day Ago History 5/325 mg] ED Review of Systems ROS: Stated complaint: TROUBLE BREATHING,RECTAL BLEED Other details as noted in HPI Comment: All other systems reviewed and negative Constitutional: denies: chills, fever Eyes: denies: eye pain, eye discharge, vision change ENT: denies: ear pain, throat pain Respiratory: shortness of breath, SOB with exertion. denies: cough Cardiovascular: denies: chest pain, palpitations Gastrointestinal: abdominal pain. denies: nausea, vomiting Genitourinary: denies: urgency, dysuria Musculoskeletal: denies: back pain, joint swelling, arthralgia Skin: denies: rash, lesions Neurological: denies: headache, weakness, paresthesias Physical Exam - Physical Exam Vital Signs: Vital Signs 10/17/16 10/17/16 10/17/16 05:17 05:57 06:00 Temperature 97.4 F L Pulse Rate 122 H 120 H 121 H Respiratory 22 30 H 28 H Rate Blood Pressure 135/105 136/105 Blood Pressure 135/105 [Left] O2 Sat by Pulse 100 100 99 Oximetry 10/17/16 10/17/16 06:11 06:22 Temperature Pulse Rate 120 H Respiratory 17 20 Rate Blood Pressure 136/105 Blood Pressure [Left] O2 Sat by Pulse 100 Oximetry Physical Exam: GENERAL: The patient is well-developed well-nourished. HEENT: Normocephalic. Atraumatic. Extraocular motions are intact. Patient has moist mucous membranes. Pupils equal reactive to light bilaterally. NECK: Supple. Trachea is midline. CHEST/LUNGS: Coarse breath sounds throughout the chest. There is some tachypnea but no accessory muscle use. There is no respiratory distress noted. Patient has a permacath right-sided chest port. HEART/CARDIOVASCULAR: Regular. There is mild to moderate tachycardia. There is no gallop rub or murmur. ABDOMEN: Abdomen is soft, nontender. Patient has normal bowel sounds. There is no abdominal distention. RECTAL: Patient has external hemorrhoid at about 5 o'clock position that appears nonthrombosed. No gross blood. Positive stool for guaiac testing. SKIN: Skin is warm and dry. NEURO: The patient is awake, alert, and oriented. The patient is cooperative. The patient has no focal neurologic deficits. The patient has normal speech. MUSCULOSKELETAL: There is no tenderness or deformity. There is no limitation range of motion. There is no evidence of acute injury. ED Course Vital Signs 10/17/16 10/17/16 10/17/16 05:17 05:57 06:00 Temperature 97.4 F L Pulse Rate 122 H 120 H 121 H Respiratory 22 30 H 28 H Rate Blood Pressure 135/105 136/105 Blood Pressure 135/105 [Left] O2 Sat by Pulse 100 100 99 Oximetry 10/17/16 10/17/16 06:11 06:22 Temperature Pulse Rate 120 H Respiratory 17 20 Rate Blood Pressure 136/105 Blood Pressure [Left] O2 Sat by Pulse 100 Oximetry ED Medical Decision Making - Lab Data Result diagrams: 10/17/16 05:47 10/17/16 05:47 - EKG Data -: EKG Interpreted by Me - EKG Data When compared to previous EKG there are: changes noted (previous EKG showed atrial fibrillation, current shows atrial flutter) Interpretation: other (atrial flutter with 2-1 AV conduction, left axis deviation, T-wave inversions to the lateral leads, nonspecific ST-T changes) - Radiology Data Radiology results: report reviewed Abdominal ultrasound shows small ascites and right pleural effusion that is new since December 2011. Cholelithiasis skin noted with gallbladder now suboptimally distended. Increased echogenicity to the right kidney and the pancreas in this patient with underlying medical renal disease. Abdominal x-ray shows probable enteritis. No definite evidence of small bowel projection. Chest x-ray shows minimal right pleural effusion possible with stable cardiomegaly and right-sided central catheter. - Medical Decision Making 61-year-old male presents with complaint of shortness of breath and rectal bleeding. There is some positive stool for guaiac but no obvious gross blood. Hemoglobin is stable. Patient does appear to have some ascites and pleural effusion and is due for dialysis today. Spoke to nephrology who will dialyze the patient later today. Patient is on Eloquist and says he has been compliant and therefore he is low suspicion for PE as a cause. Patient will be admitted for further evaluation and treatment and has been accepted by the hospitalist. - Differential Diagnosis CHF, pneumonia, malignancy, MA Critical Care Time: No Critical care attestation.: If time is entered above; I have spent that time in minutes in the direct care of this critically ill patient, excluding procedure time. ED Disposition Clinical Impression: Atrial flutter with rapid ventricular response, End-stage renal disease needing dialysis, SOB (shortness of breath), Pleural effusion Ascites Qualifiers: Ascites type: other type Qualified Code(s): R18.8 - Other ascites Disposition: OP ADMITTED IP TO THIS HOSP Is pt being admited?: Yes Condition: Stable Referrals: CHEYANNE LÓPEZ DO [Primary Care Provider] - 3-5 Days Forms: Accompanied Note Time of Disposition: 09:57
[2016-10-17] MEDS ORDERED: LOPRESSOR IV ONE (07:17)
--- NOTE | 2016-10-17 07:43 | Ultrasound Report ---
ULTRASOUND ABDOMEN INDICATION: Abdominal pain, shortness of breath and rectal bleeding. COMPARISON: 01/20/2012 RUQ ultrasound. FINDINGS: Abdominal sonography again demonstrates normal hepatic contours and echotexture without focal suspicious lesions or biliary dilatation. Prominent hepatic veins. Gallbladder now suboptimally distended and appears filled with numerous echogenic, shadowing gallstones, individually measuring to the order of 7 mm. No pericholecystic fluid. Negative sonographic Upton's sign. Gallbladder wall thickness exaggerated to 4.7 mm. Common bile duct is 2.9 mm. Homogenous spleen, 10.2 cm in length. Small abdomen ascites now noted. A small right pleural effusion also now seen. Pancreas now appears somewhat echogenic diffusely, though with preserved contours. Unremarkable IVC. Nonaneurysmal abdominal aorta. Echogenic right kidney, mildly atrophic at 8.5 x 3.5 x 4.1 cm with cortical thickness of 0.7 cm. An approximately 1.5 cm right upper renal cortical cyst with few low level intrinsic echoes possible. Left kidney not visualized. CONCLUSION: 1. Small ascites and right pleural effusion appear new since December 2011, as described. Clinical correlation for peritoneal dialysis may also be obtained. 2. Cholelithiasis again noted with gallbladder now suboptimally distended. 3. Increased echogenicity to the right kidney and the pancreas in this patient with underlying medical renal disease. A slightly complex right upper renal cortical cyst may also now be identified. 4. Left kidney not visualized. Thank you for the opportunity to participate in this patient's care.
--- NOTE | 2016-10-17 07:46 | XRay Report ---
CHEST 2 VIEWS INDICATION: Difficulty breathing. COMPARISON: 09/23/2016 FINDINGS: Frontal and lateral chest radiographs again demonstrate right sided central catheter tip along the distal SVC. Stable cardiomediastinal silhouette/mild cardiomegaly. No CHF, though minimal right lateral costophrenic angle blunting may represent minimal fluid. Slight fluid or thickening along the fissures as well. Intact bones. CONCLUSION: Minimal right pleural effusion possible with stable cardiomegaly and right-sided central catheter, as described. Thank you for the opportunity to participate in this patient's care.
--- NOTE | 2016-10-17 08:32 | Admit Criteria Form ---
Admission Criteria Documentation: CARDIOLOGY GRG Clinical Indications for Admission to Inpatient Care ( Place 'X' for any and all applicable criteria): Hospital admission is needed for appropriate care of the patient because of ANY ONE of the following (1): [ ] I. Hemodynamic instability as indicated by ALL of the following (1)(2)(3) (4)(5) [ ]a) Vital signs or other findings not as expected for chronic patient condition or baseline [ ]b) Instability indicated by ANY ONE of the following: [ ]i) Hypotension [ ]ii) Symptomatic Tachycardia unresponsive to treatment ( e.g., analgesia, fluids, sedation as indicated) [ ]iii) Inadequate perfusion indicated by ANY ONE of the following: [ ] 1) Lactic acidosis (> 2 mmol/L) [ ] 2) New abnormal capillary refill (> 3 seconds) [ ] 3) Reduced urine output [ ] 4) New altered mental status [ ]iv) Orthostatic vital sign changes unresponsive to treatment (e.g., fluids) [ ]v) IV inotropic or vasopressor medication required to maintain adequate blood pressure or perfusion [ ] II. Severe heart failure as indicated by ANY ONE of the following(17)(18) [ ]a) Respiratory distress [ ]b) Hypotension [ ]c) Anasarca (refractory to outpatient therapy) [ ]d) Cardiac arrhythmias of immediate concern [ ]e) Myocardial ischemia [ ] III. Cardiac arrhythmias or findings of immediate concern indicated by ANY ONE of the following (19)(20): [ ] a) Heart rhythms that are inherently dangerous or unstable indicated by ANY ONE of the following (21)(22)(23): [ ] i) Resuscitated ventricular fibrillation or cardiac arrest [ ] ii) Ventricular escape rhythm [ ] iii) Sustained ventricular tachycardia (30 seconds or more of ventricular rhythm at greater than 100 beats per minute) [ ] iv) Nonsustained ventricular tachycardia and ANY ONE of the following: [ ] 1) Suspected cardiac ischemia as cause or consequence of ventricular tachycardia [ ] 2) In setting of acute myocarditis [ ] b) Unstable cardiac conduction defects indicated by ANY ONE of the following(23)(24)(25) [ ] i) Type II second-degree atrioventricular block [ ]ii) Third-degree atrioventricular block [ ]iii) New-onset left bundle branch block with suspected myocardial ischemia [ ]c) Any heart rhythm and ANY ONE of the following (21)(22)(26)(27) (28) [ ] i) Continuous long-term ECG monitoring needed (e.g., initiation of drug requiring monitoring for more than 24 hours) [ ] ii) Patient has automatic implanted cardioverter defibrillator that is repeatedly firing, malfunctioning, or in need of immediate adjustment of settings beyond the scope of ambulatory or observation care [ ]d) Heart rhythms of concern due to ANY ONE of the following: [ ] i) Hypotension [ ] ii) Respiratory distress [ ] iii) Association with other significant symptoms (e.g., bradycardia with syncope or ongoing dizziness, supraventricular tachycardia with chest pain (14)(15)(17) [ ] IV. Monitoring for cardiac contusion beyond the scope of observation care needed [A](30)(31)(32) [ ] V. Surgical or device complication (e.g., valve replacement complication , pacemaker dysfunction) (35)(41)(44)(45)(46) [ ] . Inpatient palliative care needed. [B](49) Also use Inpatient Palliative Care Criteria [ ] VII. Nonbacterial thrombotic (marantic) endocarditis (36)(43)(47)(48) [X ] VIII. Cardiology condition, symptom, or finding for which emergency and observation care has failed or are not considered appropriate. [ ] IX. Acute valvular disease requiring inpatient as indicated by ANY ONE of the following (41) [ ]a) Acute valvular regurgitation (42) [ ]b) Noninfectious valvulitis (43) [ ]c) Obstructive valve thrombosis [ ]d) Paravalvular leak [ ]e) Other significant valvular disorder remaining after emergency or observation level of care (as appropriate) [ ]X. Pericardial disease requiring inpatient treatment as indicated by ANY ONE of the following (33)(34)(35)(36)(37) [ ]a) Suspected tamponade (38)(39)(40) [ ]b) Hemopericardium [ ]c) Other significant pericardial disorder remaining after emergency or observation level of care (as appropriate) [ ] XI. Cardiac ischemia beyond scope of emergency and observation care. [ ] XII. Hypertension requiring inpatient treatment as indicated by ANY ONE of the following (6)(7)(8) [ ]a) SBP greater than 220 mm Hg or DBP greater than 120 mmHg despite treatment [ ]b) SBP greater than 140 mm Hg or DBP greater than 100 mm Hg with evidence of acute end organ damage as indicated by ANY ONE of the following [ ] i) Altered mental status [ ] ii) Acute renal failure as indicated by new onset of ANY ONE of the following (9)(10)(11)(12)(13) [ ]1) 3-fold rise in serum creatinine from baseline [ ]2) Serum creatinine greater than 4 mg/dL ( 354 micromoles/L) with acute rise greater than 0.5 mg/dL (44.2 micromoles/L) [ ]3) Reduction of more than 75% in estimated glomerular filtration rate from baseline [ ]4) Estimated glomerular filtration rate less than 35 mL/min/1.73m2 (0.59 mL/sec/1.73m2) in child up to 18 years of age [ ]5) Cessation of urine output indicated by ALL of the following [ ]A. Adequate volume status [ ]B. Inadequate urine output as indicated by ANY ONE of the following [ ]a. Urine output less than 0.3 mL/kg/hr for 24 hours [ ]b. Anuria (urine output less than 0.1 mL/kg/hr) for 12 hours [ ] iii) Aortic dissection [ ] iv) Myocardial Ischemia [ ] v) Left ventricular heart failure [ ]vi) Retinal Hemorrhage [ ]vii) Other significant finding [ ]c) Hypertension in child requiring inpatient treatment as indicated by ALL of the following(14)(15)(16) [ ] i) Outpatient treatment not effective, not available, or not appropriate [ ]ii) SBP or DBP greater than 95th percentile for age [ ]iii) Evidence of acute end organ damage as indicated by ANY ONE of the following [ ]1) Altered mental status [ ]2) Acute renal failure as indicated by new onset of ANY ONE of the following(9)(10)(11)(12)(13) [ ]A. 3-fold rise in serum creatinine from baseline [ ]B. Serum creatinine greater than 4 mg/dL (354 micromoles/L) with acute rise greater than 0.5 mg/dL (44.2 micromoles/L) [ ]C. Reduction of more than 75% in estimated glomerular filtration rate from baseline [ ]D. Estimated glomerular filtration rate less than 35 mL/min/1.73m2 (0.59 mL/sec/1.73m2) in child up to 18 years of age [ ]E. Cessation of urine output indicated by ALL of the following [ ]a. Adequate volume status [ ]b. Inadequate urine output as indicated by ANY ONE of the following [ ]i) Urine output less than 0.3 mL/kg/hr for 24 hours [ ]ii) Anuria ( urine output less than 0.1 mL/kg/hr) for 12 hours [ ]3) Severe headache [ ]4) Visual disturbance [ ]5) Retinal hemorrhage [ ]6) Other significant finding [ ]XIII. Complications of transplanted heart indicated by ANY ONE of the following(61): [ ]a) Acute graft rejection requiring inpatient management (eg, intravenous immunosuppression)(62)(63) [ ]b) Acute graft heart failure indicated by ANY ONE of the following(64): [ ]i) Hemodynamic instability [ ]ii) Cardiac arrhythmias of immediate concern [ ]iii) Pulmonary edema that is very severe (eg, mechanical ventilation needed, imminent or likely, need for 100% oxygen to keep oxygen saturation above 90%) [ ]iv) Pulmonary edema that is persistent as indicated by ALL of the following: [ ]1) New need for oxygen therapy to keep oxygen saturation above 90% (or increased FiO2 need from baseline) [ ]2) Has not improved sufficiently with emergency department or observation care IV diuretics or other heart failure treatments[E] [ ]v) Altered mental status that is severe or persistent [ ]vi) Increased creatinine (new on laboratory test) with reduction of more than 50% in estimated glomerular filtration rate from baseline [ ]vii) Progressively (ongoing) rising creatinine (known from past laboratory test) with reduction of more than 25% in estimated glomerular filtration rate from baseline [ ]viii) Acute renal failure [ ]ix) Acute peripheral ischemia (eg, examination shows pulseless, cool, mottled, or cyanotic extremity) [ ]x) Pulmonary artery catheter monitoring needed [ ]xi) Other sign or symptom of heart failure requiring inpatient treatment (ie, too severe or not responsive to outpatient and observation care treatment) [ ]c) Infection requiring inpatient management (eg, Hemodynamic instability, need for intravenous antimicrobial treatment)(66)(67)(68)(69)(70) [ ]d) Cardiac allograft vasculopathy requiring inpatient management ( eg evidence of cardiac ischemia)(71) [ ]e) Other complication of transplanted heart (eg, stroke, severe pulmonary hypertension, severe valvular dysfunction) requiring inpatient management(72) The original [facility] content created by [facility] has been revised. The portions of the content which have been revised are identified through the use of italic text or in bold, and [facility] has neither reviewed nor approved the modified material. All other unmodified content is copyright [facility] [employer]. Please see references footnoted in the original [facility] [employer] edition 2016 Admission Criteria Met: Yes
[2016-10-17] MEDS ORDERED: ZOFRAN ONE (08:41)
[2016-10-17] MEDS ORDERED: ZOFRAN IV ONE (09:00)
--- NOTE | 2016-10-17 09:28 | XRay Report ---
Abdomen 2 views: History: Abdominal pain. Findings: No free intraperitoneal air. Few distended loops of small bowel. Normal colon with stool in colon. No air fluid levels. No radiopaque calculus or abnormal calcification. Impression: Probable enteritis. No definite evidence of small bowel obstruction.
[2016-10-17] MEDS ORDERED: PERCOCET 5/325 PO PRN (10:19)
[2016-10-17] MEDS ORDERED: ZOFRAN PO PRN (10:19)
[2016-10-17] MEDS ORDERED: MILK OF MAGNESIA PO PRN (10:20)
[2016-10-17] MEDS ORDERED: ZOFRAN IV PRN (10:20)
[2016-10-17] MEDS ORDERED: DULCOLAX PR PRN (10:20)
--- NOTE | 2016-10-17 10:50 | History and Physical Report ---
History of Present Illness Chief complaint: Shortness of breath History of present illness: 61M with pmh of ESRD, poor compliance with HD who presents with shortness of breath 2 days. He also admits lower abdominal pain, he admits to some blood in his stool dark blood around his stool. However the blood in the stools are small amount. With progressive shortness of breath he's complaining of some orthopnea, dyspnea on exertion that has been getting worse over the past day. He also admits some palpitations. Denies any chest pain, he states that he takes his medications, however that has been issues of poor compliance in the past. Past History Past Medical History: other (hypertension, a flutter/A. fib on eliquis, hyperlipidemia, end-stage renal disease on hemodialysis) Past Surgical History: Other (hernia repair, PD access, permacath placements) Social history: no significant social history Family history: no significant family history Medications and Allergies Allergies Allergy/AdvReac Type Severity Reaction Status Date / Time hydralazine Allergy Unknown Verified 08/07/16 09:21 Home Medications Medication Instructions Recorded Confirmed Last Taken Type Apixaban [Eliquis] 2.5 mg PO QDAY #30 tablet 08/08/16 09/24/16 09/23/16 Rx Losartan [Cozaar] 50 mg PO QDAY #30 tablet 08/08/16 09/24/16 09/23/16 Rx amLODIPine [Norvasc] 10 mg PO DAILY #30 tablet 08/08/16 09/24/16 09/23/16 Rx Cinacalcet [Sensipar] 30 mg PO QDAY 09/23/16 09/23/16 09/23/16 History Ondansetron [Zofran TAB] 4 mg PO Q8HR PRN 09/23/16 09/23/16 09/23/16 History Metoprolol Xl [Metoprolol 50 mg PO QDAY 09/24/16 09/24/16 1 Day Ago History SUCCINATE ER TAB] oxyCODONE /ACETAMINOPHEN [Percocet 1 tab PO DAILY PRN 09/24/16 09/24/16 1 Day Ago History 5/325 mg] Active Meds: Active Medications Acetaminophen (Tylenol) 650 mg PO Q4H PRN PRN Reason: Pain MILD(1-3)/Fever >100.5/IQBAL Amlodipine Besylate (Norvasc) 10 mg PO DAILY EMBER Apixaban (Eliquis) 2.5 mg PO QDAY EMBER PRN Reason: Protocol Bisacodyl (Dulcolax) 10 mg IN QDAY PRN PRN Reason: Constipation unrelieved by MOM Losartan Potassium (Cozaar) 50 mg PO QDAY EMBER Magnesium Hydroxide (Milk Of Magnesia) 30 ml PO Q4H PRN PRN Reason: Constipation Metoprolol Succinate (Toprol Xl) 50 mg PO QDAY EMBER Ondansetron HCl (Zofran) 4 mg PO Q8HR PRN PRN Reason: Nausea Ondansetron HCl (Zofran) 4 mg IV Q8H PRN PRN Reason: N/V unrelieved by Reglan Oxycodone/Acetaminophen (Percocet 5/325) 1 tab PO DAILY PRN PRN Reason: Pain Review of Systems All systems: negative Constitutional: fatigue Gastrointestinal: abdominal pain, hematochezia Exam - Physical Exam Narrative exam: General: Patient appears well in no distress HEENT: MMM, EOMI cardiac: S1-S2 heard lungs: Bibasilar crackles abdomen: soft, nontender, nondistended bowel sounds positive extremities: no edema clubbing or cyanosis Skin: no rash or lesion Neuro: no focal deficit Psych: appropriate behavior and mood, cognition intact - Constitutional Vitals: Temp Pulse Resp BP Pulse Ox 97.4 F L 111 H 20 133/100 94 10/17/16 05:17 10/17/16 10:00 10/17/16 10:00 10/17/16 09:30 10/17/16 09:30 Results - Labs CBC & Chem 7: 10/17/16 05:47 10/17/16 05:47 Labs: Laboratory Last Values WBC 5.5 K/mm3 (4.5-11.0) 10/17/16 05:47 RBC 5.11 M/mm3 (3.65-5.03) H 10/17/16 05:47 Hgb 15.0 gm/dl (11.8-15.2) 10/17/16 05:47 Hct 46.8 % (35.5-45.6) H 10/17/16 05:47 MCV 92 fl (84-94) 10/17/16 05:47 MCH 29 pg (28-32) 10/17/16 05:47 MCHC 32 % (32-34) 10/17/16 05:47 RDW 16.8 % (13.2-15.2) H 10/17/16 05:47 Plt Count 220 K/mm3 (140-440) 10/17/16 05:47 Lymph % (Auto) 17.8 % (13.4-35.0) 10/17/16 05:47 [place] % (Auto) 11.6 % (0.0-7.3) H 10/17/16 05:47 Eos % (Auto) 0.5 % (0.0-4.3) 10/17/16 05:47 Baso % (Auto) 0.7 % (0.0-1.8) 10/17/16 05:47 Lymph # 1.0 K/mm3 (1.2-5.4) L 10/17/16 05:47 [place] # 0.6 K/mm3 (0.0-0.8) 10/17/16 05:47 Eos # 0.0 K/mm3 (0.0-0.4) 10/17/16 05:47 Baso # 0.0 K/mm3 (0.0-0.1) 10/17/16 05:47 Seg Neutrophils % 69.4 % (40.0-70.0) 10/17/16 05:47 Seg Neutrophils # 3.8 K/mm3 (1.8-7.7) 10/17/16 05:47 PT 16.0 Sec. (12.2-14.9) H 10/17/16 05:47 INR 1.29 (0.87-1.13) H 10/17/16 05:47 APTT 30.6 Sec. (24.2-36.6) 10/17/16 05:47 Sodium 136 mmol/L (137-145) L 10/17/16 05:47 Potassium 5.0 mmol/L (3.6-5.0) 10/17/16 05:47 Chloride 88.2 mmol/L (98-107) L 10/17/16 05:47 Carbon Dioxide 22 mmol/L (22-30) 10/17/16 05:47 Anion Gap 31 mmol/L 10/17/16 05:47 BUN 59 mg/dL (9-20) H 10/17/16 05:47 Creatinine 10.8 mg/dL (0.8-1.5) H 10/17/16 05:47 Estimated GFR 6 ml/min 10/17/16 05:47 BUN/Creatinine Ratio 5.46 % 10/17/16 05:47 Glucose 81 mg/dL (75-100) 10/17/16 05:47 Calcium 10.4 mg/dL (8.4-10.2) H 10/17/16 05:47 Total Bilirubin 1.2 mg/dL (0.1-1.2) 10/17/16 05:47 AST 23 units/L (5-40) 10/17/16 05:47 ALT 21 units/L (7-56) 10/17/16 05:47 Alkaline Phosphatase 107 units/L (35-129) 10/17/16 05:47 NT-Pro-B Natriuret Pep > 81007 pg/mL (0-900) H 10/17/16 08:14 Total Protein 8.2 g/dL (6.3-8.2) 10/17/16 05:47 Albumin 4.1 g/dL (3.9-5) 10/17/16 05:47 Albumin/Globulin Ratio 1.0 % 10/17/16 05:47 Lipase 77 units/L (13-60) H 10/17/16 05:47 Blood Type O POSITIVE 10/17/16 05:45 Antibody Screen Negative 10/17/16 05:45 - Imaging and Cardiology Chest x-ray: image reviewed (mild pleural effusion noted) Abdominal x-ray: image reviewed (probable enteritis) Assessment and Plan Assessment and plan: 65-year-old male with a past medical history of end-stage renal disease A. fib/ A flutter on eliquis who presents with shortness of breath, abdominal pain and bloody stool. 1. Fluid overload, pulmonary venous congestion, acute on chronic systolic CHF Fluid to be removed by hemodialysis, optimize meds 2. Hypertension Resume home meds 3. A. fib with RVR Patient to be put back on beta rochelle, continue eliquis for stroke prophylaxis 4. GI bleed Hemoglobin is stable, patient most likely had a small amount of blood in stool due to being on chronic anticoagulation. We'll monitor for further bleeding, I will monitor blood counts. If he continues to have bloody stools or a drop in hemoglobin will consult GI 5. DVT prophylaxis patient is already fully anticoagulated
[2016-10-17] MEDS ORDERED: TOPROL XL PO SCH (11:00)
[2016-10-17] MEDS ORDERED: NACL 0.9% 100 ML IV PRN (11:00)
[2016-10-17] MEDS ORDERED: ALBURX 25% (ALBUMIN) IV PRN (11:00)
[2016-10-17] MEDS ORDERED: TYLENOL PO PRN (11:00)
--- NOTE | 2016-10-17 11:25 | Consultation ---
History of Present Illness - Reason for Consult Consult date: 10/17/16 end stage renal disease Requesting physician: BARRY GONZALEZ - History of Present Illness 59-year-old male with a history of hypertension, congestive heart failure, end- stage renal disease on peritoneal dialysis in the past who is now on hemodialysis for at least 6 months. Unfortunately he still has not had AV fistula placed. Patient had been missing appointments to get this done. Presents to the emergency room on account of lower abdominal pain and shortness of breath. Patient says his been having left lower quadrant abdominal pain which he describes as a dull ache and rates as an 8/10. Pain is nonradiating and associated with nausea but no vomiting. He also admits to mild constipation and decrease in his appetite. He is also had progressive worsening shortness of breath worse with exertion. "Every time I try to walk I get a little short of breath". Patient yesterday went to have a bowel movement and noticed stools were black and that there was some blood. He had been straining as he has been constipated and had small hard stools. He denies any hematemesis. He got concerned with this and so he decided to come to the hospital for further management. On further inquiry admits to some chest pain which he describes an ache and occasional cough usually unproductive. Past History Past Medical History: atrial fib, ESRD, heart failure, hepatitis (C), hypertension, hyperlipidemia, other (hypertension, a flutter/A. 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 denies: smoking, alcohol abuse, prescription drug abuse, IV drug use (he used cocaine in the past but quit about 1999) Family history: other (father of heart disease at age 94. Mother at age 87 of unknown cause) Medications and Allergies Allergies Allergy/AdvReac Type Severity Reaction Status Date / Time hydralazine Allergy Unknown Verified 08/07/16 09:21 Home Medications Medication Instructions Recorded Confirmed Last Taken Type Apixaban [Eliquis] 2.5 mg PO QDAY #30 tablet 08/08/16 09/24/16 09/23/16 Rx Losartan [Cozaar] 50 mg PO QDAY #30 tablet 08/08/16 09/24/16 09/23/16 Rx amLODIPine [Norvasc] 10 mg PO DAILY #30 tablet 08/08/16 09/24/16 09/23/16 Rx Cinacalcet [Sensipar] 30 mg PO QDAY 09/23/16 09/23/16 09/23/16 History Ondansetron [Zofran TAB] 4 mg PO Q8HR PRN 09/23/16 09/23/16 09/23/16 History Metoprolol Xl [Metoprolol 50 mg PO QDAY 09/24/16 09/24/16 1 Day Ago History SUCCINATE ER TAB] oxyCODONE /ACETAMINOPHEN [Percocet 1 tab PO DAILY PRN 09/24/16 09/24/16 1 Day Ago History 5/325 mg] Active Meds: Active Medications Acetaminophen (Tylenol) 650 mg PO Q4H PRN PRN Reason: Pain MILD(1-3)/Fever >100.5/IQBAL Albumin Human (Alburx 25% (Albumin)) 25 gm IV NAOMI PRN PRN Reason: Hypotension Amlodipine Besylate (Norvasc) 10 mg PO DAILY EMBER Apixaban (Eliquis) 2.5 mg PO QDAY EMBER PRN Reason: Protocol Bisacodyl (Dulcolax) 10 mg MD QDAY PRN PRN Reason: Constipation unrelieved by [facility] Heparin Sodium (Porcine) (Heparin) 5,000 unit IV ANOMI PRN PRN Reason: hemodialysis Heparin Sodium (Porcine) (Heparin 10,000 Units/10 Ml) 1,000 unit IV NAOMI PRN PRN Reason: hemodialysis Sodium Chloride (Nacl 0.9%) 100 mls @ 999 mls/hr IV NAOMI PRN PRN Reason: Hypotension Losartan Potassium (Cozaar) 50 mg PO QDAY EMBER Magnesium Hydroxide (Milk Of Magnesia) 30 ml PO Q4H PRN PRN Reason: Constipation Metoprolol Succinate (Toprol Xl) 50 mg PO QDAY EMBER Ondansetron HCl (Zofran) 4 mg PO Q8HR PRN PRN Reason: Nausea Ondansetron HCl (Zofran) 4 mg IV Q8H PRN PRN Reason: N/V unrelieved by Reglan Oxycodone/Acetaminophen (Percocet 5/325) 1 tab PO DAILY PRN PRN Reason: Pain Review of Systems All systems: negative (Constitutional: no fever or chills. Appetite is diminished but not sure about weight loss. HEENT: Admits to sore throat but no sinus drainage no hearing or vision impairment . Cardiovascular: No chest pain, admits to shortness of breath, no palpitations, lower extremity swelling or dizziness. Respiratory: Admits to nonproductive cough. No sputum, hemoptysis or wheezing. Gastrointestinal: See history of present illness Genitourinary: Admits to making very little urine. No frequency urgency dysuria or hematuria. hematologic: No abnormal bleeding or bruising. Integumentary: Admits to itching but no rash. Neurological: No headache no focal weakness or numbness, no syncope or seizures. Musculoskeletal: No joint pains no stiffness. Psychiatry : Admits to both anxiety and depression) Exam - Vital Signs Vital signs: Vital Signs Temp Pulse Resp BP Pulse Ox 97.4 F L 122 H 22 135/105 100 10/17/16 05:17 10/17/16 05:17 10/17/16 05:17 10/17/16 05:17 10/17/16 05:17 - Physical Exam Narrative exam: Middle-aged -Malaysian male lying in bed in no acute distress HEENT normocephalic atraumatic, pupils equal reactive to light, pink, clear oropharynx Neck supple, no thyromegaly no jugular venous distention CVS S1-S2 regular rate rhythm without murmur, rub or gallop Chest clear to auscultation, right chest permacath Abdomen soft nondistended nontender no organomegaly no bruit bowel sounds present Extremities no edema no cyanosis or clubbing Genitourinary deferred Neuro awake, alert oriented x3 no gross deficit Results - Lab Results 10/17/16 05:47 10/17/16 05:47 Most recent lab results Calcium 10.4 mg/dL (8.4-10.2) H 10/17/16 05:47 Assessment and Plan - Patient Problems (1) Hematochezia Current Visit: Yes Status: Acute Plan to address problem: Consider GI evaluation (2) Abdominal pain, acute, right lower quadrant Current Visit: Yes Status: Acute Plan to address problem: Ultrasound nondiagnostic. Consider CT of the abdomen and pelvis if pain persists after dialysis. Consider gastroenterology evaluation (3) Ascites Current Visit: Yes Status: Acute Qualifiers: Ascites type: other type Qualified Code(s): R18.8 - Other ascites Plan to address problem: Minimal ascites on ultrasound. We'll follow (4) End-stage renal disease needing dialysis Current Visit: Yes Status: Acute Plan to address problem: hemodialysis on Thursday, Thursday and Thursday schedule. Extra dialysis in the morning if patient is still volume overloaded (5) SOB (shortness of breath) Current Visit: Yes Status: Acute Plan to address problem: Probably related to volume overload. I'm also concerned about the right Pleural effusion though it appears to be minimal. (6) Hyperkalemia Current Visit: No Status: Acute Plan to address problem: Potassium improved with dialysis. Follow-up
[2016-10-17] MEDS ORDERED: ELIQUIS PO SCH (14:00)
--- NOTE | 2016-10-17 16:15 | Consultation ---
History of Present Illness Consult date: 10/17/16 Requesting physician: BARRY GONZALEZ Consult reason: atrial fibrillation, elevated troponin History of present illness: The patient is a 61 year old male who is followed by Dr. Gomez in the office with a history of paroxysmal atrial fibrillation/atrial flutter, chronic systolic heart failure, non-ischemic cardiomyopathy, ESRD on HD. 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 He reports that he has not taken any prescription medications in the past few days due to moving. He denies missing any dialysis. He denies any chest pain, n/v, diaphoresis, dizziness, or syncope. He denies any aggravating or alleviating factors. On evaluation, he is in AFlutter, 2:1 conduction, with RVR, HR 120s, BPs stable. Echo done 07/2015 showed EF 30-35%, mod-severe MR. [place] thallium stress test done 07/2016 was negative for ischemia. Normal coronaries per cath 01/2013. Past History Past Medical History: atrial fib, ESRD, heart failure, hepatitis (C), hypertension, hyperlipidemia, other (hypertension, a flutter/A. 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 denies: smoking, alcohol abuse, prescription drug abuse, IV drug use (he used cocaine in the past but quit about 1999) Family history: other (father of heart disease at age 94. Mother at age 87 of unknown cause) Medications and Allergies Allergies Allergy/AdvReac Type Severity Reaction Status Date / Time hydralazine Allergy Unknown Verified 08/07/16 09:21 Home Medications Medication Instructions Recorded Confirmed Last Taken Type Apixaban [Eliquis] 2.5 mg PO QDAY #30 tablet 08/08/16 09/24/16 09/23/16 Rx Losartan [Cozaar] 50 mg PO QDAY #30 tablet 08/08/16 09/24/16 09/23/16 Rx amLODIPine [Norvasc] 10 mg PO DAILY #30 tablet 0209/24/16 09/23/16 Rx Cinacalcet [Sensipar] 30 mg PO QDAY 09/23/16 09/23/16 09/23/16 History Ondansetron [Zofran TAB] 4 mg PO Q8HR PRN 09/23/16 09/23/16 09/23/16 History Metoprolol Xl [Metoprolol 50 mg PO QDAY 09/24/16 09/24/16 1 Day Ago History SUCCINATE ER TAB] oxyCODONE /ACETAMINOPHEN [Percocet 1 tab PO DAILY PRN 09/24/16 09/24/16 1 Day Ago History 5/325 mg] Active Meds: Active Medications Acetaminophen (Tylenol) 650 mg PO Q4H PRN PRN Reason: Pain MILD(1-3)/Fever >100.5/IQBAL Albumin Human (Alburx 25% (Albumin)) 25 gm IV NAOMI PRN PRN Reason: Hypotension Amlodipine Besylate (Norvasc) 10 mg PO DAILY EMBER Apixaban (Eliquis) 2.5 mg PO QDAY EMBER PRN Reason: Protocol Bisacodyl (Dulcolax) 10 mg [place] QDAY PRN PRN Reason: Constipation unrelieved by [facility] Heparin Sodium (Porcine) (Heparin) 5,000 unit IV NAOMI PRN PRN Reason: hemodialysis Heparin Sodium (Porcine) (Heparin 10,000 Units/10 Ml) 1,000 unit IV NAOMI PRN PRN Reason: hemodialysis Sodium Chloride (Nacl 0.9%) 100 mls @ 999 mls/hr IV NAOMI PRN PRN Reason: Hypotension Losartan Potassium (Cozaar) 50 mg PO QDAY [facility] Magnesium Hydroxide (Milk Of Magnesia) 30 ml PO Q4H PRN PRN Reason: Constipation Metoprolol Succinate (Toprol Xl) 50 mg PO QDAY [facility] Ondansetron HCl (Zofran) 4 mg PO Q8HR PRN PRN Reason: Nausea Ondansetron HCl (Zofran) 4 mg IV Q8H PRN PRN Reason: N/V unrelieved by Reglan Oxycodone/Acetaminophen (Percocet 5/325) 1 tab PO DAILY PRN PRN Reason: Pain Review of Systems Constitutional: no weight loss, no weight gain, no fever, no chills, no sweats Ears, nose, mouth and throat: no ear pain, no nose pain, no nasal congestion, no nasal discharge, no sinus pressure, no sinus pain Cardiovascular: palpitations, shortness of breath, dyspnea on exertion, no chest pain, no orthopnea, no rapid/irregular heart beat, no edema, no syncope, no lightheadedness, no leg edema Respiratory: no cough, no congestion, no wheezing, no pain Gastrointestinal: no abdominal pain, no nausea, no vomiting, no diarrhea, no constipation, no change in bowel habits Genitourinary Male: no dysuria, no hematuria, no flank pain, no discharge, no urinary frequency, no urinary hesitancy Musculoskeletal: no neck stiffness, no neck pain, no shooting arm pain, no arm numbness/tingling, no low back pain, no shooting leg pain Integumentary: no rash, no pruritis, no redness, no sores, no wounds Neurological: no head injury, no paralysis, no weakness, no parathesias, no numbness, no tingling, no seizures, no syncope Psychiatric: no anxiety Endocrine: no cold intolerance, no heat intolerance Hematologic/Lymphatic: no easy bruising, no easy bleeding Allergic/Immunologic: no urticaria, no wheezing, no persistent infections Physical Examination Vital Signs Temp Pulse Resp BP Pulse Ox 97.4 F L 122 H 22 135/105 100 10/17/16 05:17 10/17/16 05:17 10/17/16 05:17 10/17/16 05:17 10/17/16 05:17 General appearance: no acute distress HEENT: Positive: PERRL, Normocephaly, Mucus Membranes Moist Neck: Positive: neck supple, trachea midline Cardiac: Positive: irregularly irregular, S1/S2, Tachycardia Lungs: Positive: Normal Exam, clear to auscultation, Normal Breath Sounds Neuro: Positive: Grossly Intact, Cranial Nerve 2-12 Intact Abdomen: Positive: Unremarkable, Soft, Active Bowel Sounds. Negative: Tender Skin: Positive: Clear. Negative: Rash, Wound Musculoskeletal: No Fluid Collection, No Pain, Normal Range of Motion Extremities: Present: normal, upper extr. pulses, lower extr. pulses. Absent: edema Results 10/17/16 05:47 10/17/16 05:47 - Imaging and Cardiology Echo: report reviewed EKG: report reviewed, image reviewed EKG interpretations - Telemetry EKG Rhythm: Atrial Flutter - EKG Supraventricular dysrhythmia: atrial flutter Assessment and Plan Assessment: Paroxysmal atrial flutter / atrial fibrillation with RVR Chronic systolic heart failure 30-35% - currently euvolemic. NICMP HTN ESRD on HD Noncompliance with medication regimen Plan: Initiate Lopressor, 25mg PO TID. Increase eliquis to 5mg PO BID as pt does not meet criteria for low dose eliquis. No indication for any further cardiac testing at this time. Cont tele. Assessment and plan reviewed with pt at bedside. The patient has been seen in conjunction with Dr. Casillas who agrees with the assessment and plan of care.
[2016-10-17] MEDS ORDERED: LOPRESSOR PO SCH (16:33)
[2016-10-17] MEDS ORDERED: NACL 0.9 (PRIMING MACHINE ONLY DIALYSIS) MC ONE (17:47)
[2016-10-17] MEDS: HEPARIN IV PRN (19:15)
[2016-10-17] MEDS: LOPRESSOR PO SCH (21:56)
[2016-10-17] MEDS: ELIQUIS PO SCH (21:56)
[2016-10-18 06:05] LABS: Basophils % (Auto) 0.6 % (0.0-1.8); Eosinophils % (Auto) 0.2 % (0.0-4.3); Hemoglobin 14.3 gm/dl (11.8-15.2); Mean Corpuscular HGB Conc 32 % (32-34); Mean Corpuscular Hemoglobin 30 pg (28-32); Mean Corpuscular Volume 93 fl (84-94); Platelet Count 210 K/mm3 (140-440); Red Blood Count 4.83 M/mm3 (3.65-5.03); Red Cell Distribution Width 17.4 % (13.2-15.2); White Blood Count 6.9 K/mm3 (4.5-11.0)
[2016-10-18 06:19] LABS: BUN/Creatinine Ratio 4.94; Calcium 9.5 mg/dL (8.4-10.2); Chloride 90.4 mmol/L (98-107); Potassium 4.9 mmol/L (3.6-5.0)
--- NOTE | 2016-10-18 07:01 | Progress Note ---
Assessment and Plan - Patient Problems (1) GI bleed Current Visit: Yes Status: Acute Qualifiers: GI bleed type/associated pathology: G Gastritis type: G Plan to address problem: Hemoglobin is stable, patient most likely had a small amount of blood in stool due to being on chronic anticoagulation. We'll monitor for further bleeding, I will monitor blood counts. will consult GI (2) End-stage renal disease needing dialysis Current Visit: Yes Status: Acute Plan to address problem: Continue hemodialysis per nephrology (3) Atrial fibrillation with RVR Current Visit: No Status: Acute Plan to address problem: Rate controlled at this time. We'll continue metoprolol and Eliquis (4) Acute on chronic systolic heart failure Current Visit: No Status: Chronic Plan to address problem: Continue losartan and metoprolol (5) HTN (hypertension) Current Visit: No Status: Chronic Qualifiers: Hypertension type: essential hypertension Qualified Code(s): I10 - Essential (primary) hypertension Plan to address problem: Continue antihypertensives History Interval history: Patient feeling better this morning. Hospitalist Physical - Constitutional Vitals: Temp Pulse Resp BP Pulse Ox 98.4 F 118 H 22 116/97 99 10/18/16 05:25 10/18/16 05:25 10/18/16 05:25 10/18/16 05:25 10/18/16 05:25 General appearance: Present: no acute distress - EENT Eyes: Present: PERRL, EOM intact ENT: hearing intact, clear oral mucosa - Neck Neck: Present: supple, normal ROM - Respiratory Respiratory effort: normal Respiratory: bilateral: CTA - Cardiovascular Rhythm: regular Heart Sounds: Present: S1 & S2 - Extremities Extremities: no ischemia, No edema - Abdominal General gastrointestinal: soft, non-tender, non-distended, normal bowel sounds - Psychiatric Psychiatric: appropriate mood/affect, intact judgment & insight - Neurologic Neurologic: CNII-XII intact, moves all extremities Results - Labs CBC & Chem 7: 10/18/16 04:51 10/18/16 04:51 Labs: Laboratory Last Values WBC 6.9 K/mm3 (4.5-11.0) 10/18/16 04:51 RBC 4.83 M/mm3 (3.65-5.03) 10/18/16 04:51 Hgb 14.3 gm/dl (11.8-15.2) 10/18/16 04:51 Hct 45.0 % (35.5-45.6) 10/18/16 04:51 MCV 93 fl (84-94) 10/18/16 04:51 MCH 30 pg (28-32) 10/18/16 04:51 MCHC 32 % (32-34) 10/18/16 04:51 RDW 17.4 % (13.2-15.2) H 10/18/16 04:51 Plt Count 210 K/mm3 (140-440) 10/18/16 04:51 Lymph % (Auto) 15.1 % (13.4-35.0) 10/18/16 04:51 [place] % (Auto) 10.8 % (0.0-7.3) H 10/18/16 04:51 Eos % (Auto) 0.2 % (0.0-4.3) 10/18/16 04:51 Baso % (Auto) 0.6 % (0.0-1.8) 10/18/16 04:51 Lymph # 1.0 K/mm3 (1.2-5.4) L 10/18/16 04:51 [place] # 0.7 K/mm3 (0.0-0.8) 10/18/16 04:51 Eos # 0.0 K/mm3 (0.0-0.4) 10/18/16 04:51 Baso # 0.0 K/mm3 (0.0-0.1) 10/18/16 04:51 Seg Neutrophils % 73.3 % (40.0-70.0) H 10/18/16 04:51 Seg Neutrophils # 5.1 K/mm3 (1.8-7.7) 10/18/16 04:51 PT 16.0 Sec. (12.2-14.9) H 10/17/16 05:47 INR 1.29 (0.87-1.13) H 10/17/16 05:47 APTT 30.6 Sec. (24.2-36.6) 10/17/16 05:47 Sodium 137 mmol/L (137-145) 10/18/16 04:51 Potassium 4.9 mmol/L (3.6-5.0) 10/18/16 04:51 Chloride 90.4 mmol/L (98-107) L 10/18/16 04:51 Carbon Dioxide 19 mmol/L (22-30) L 10/18/16 04:51 Anion Gap 33 mmol/L 10/18/16 04:51 BUN 45 mg/dL (9-20) H 10/18/16 04:51 Creatinine 9.1 mg/dL (0.8-1.5) H 10/18/16 04:51 Estimated GFR 7 ml/min 10/18/16 04:51 BUN/Creatinine Ratio 4.94 % 10/18/16 04:51 Glucose 130 mg/dL (75-100) H 10/18/16 04:51 Calcium 9.5 mg/dL (8.4-10.2) 10/18/16 04:51 Total Bilirubin 1.2 mg/dL (0.1-1.2) 10/17/16 05:47 AST 23 units/L (5-40) 10/17/16 05:47 ALT 21 units/L (7-56) 10/17/16 05:47 Alkaline Phosphatase 107 units/L (35-129) 10/17/16 05:47 NT-Pro-B Natriuret Pep > 24210 pg/mL (0-900) H 10/17/16 08:14 Total Protein 8.2 g/dL (6.3-8.2) 10/17/16 05:47 Albumin 4.1 g/dL (3.9-5) 10/17/16 05:47 Albumin/Globulin Ratio 1.0 % 10/17/16 05:47 Lipase 77 units/L (13-60) H 10/17/16 05:47 Blood Type O POSITIVE 10/17/16 05:45 Antibody Screen Negative 10/17/16 05:45
[2016-10-18] MEDS ORDERED: COZAAR PO SCH (10:00)
[2016-10-18] MEDS: ELIQUIS PO SCH ×2 (10:04→21:20)
[2016-10-18] MEDS: NORVASC PO SCH (10:05)
[2016-10-18] MEDS: LOPRESSOR PO SCH ×4 (10:05→21:20)
--- NOTE | 2016-10-18 10:19 | Progress Note ---
Assessment and Plan Paroxysmal atrial flutter / atrial fibrillation with RVR acute on Chronic systolic heart failure 30-35% - currently euvolemic. NICMP HTN ESRD on HD Noncompliance with medication regimen rec; continue metoprolol was try IV amiodarone for 18 hours as per protocol patient states having a bowel movement with blood and will stand out a stool for occult blood and awaiting GI consultation patient encouraged to ambulate as able lie down flat but has some mild shortness of breath Subjective Date of service: 10/18/16 Principal diagnosis: sob Interval history: pt has sob with minimal exertion. Objective Vital Signs Temp Pulse Pulse Resp BP BP Pulse Ox 10/18/16 10:05 57 L 127/97 10/18/16 10:04 57 L 127/97 10/18/16 08:26 98.6 F 57 L 18 127/97 93 10/18/16 05:25 98.4 F 118 H 22 116/97 99 10/18/16 01:13 97.3 F L 113 H 22 122/85 95 10/17/16 22:00 18 100 10/17/16 21:41 98.0 F 64 20 128/98 98 10/17/16 20:47 118 H 10/17/16 18:15 97.7 F 88 18 156/66 10/17/16 18:05 101 H 142/84 10/17/16 17:45 100 H 136/100 10/17/16 17:30 97 H 136/101 10/17/16 17:15 108 H 131/107 10/17/16 17:00 117 H 138/104 10/17/16 16:45 100 H 120/98 10/17/16 16:30 98 H 129/100 10/17/16 16:15 97 H 129/100 10/17/16 16:00 98 H 134/98 10/17/16 15:45 100 H 127/107 10/17/16 15:30 100 H 123/95 10/17/16 15:15 121 H 140/107 10/17/16 15:00 68 140/102 10/17/16 14:45 57 L 134/99 10/17/16 14:35 97.7 F 58 L 18 132/98 10/17/16 11:55 97.7 F 16 124/94 107 H 10/17/16 11:00 109 H 23 132/92 100 10/17/16 10:30 110 H 25 H 126/91 99 - Physical Examination General: No Apparent Distress HEENT: Positive: PERRL, Normocephaly, Mucus Membranes Moist Neck: Positive: neck supple, trachea midline Cardiac: Positive: Irregularly Regular Lungs: Positive: clear to auscultation Neuro: Positive: Grossly Intact, Cranial Nerve 2-12 Intact Abdomen: Positive: Unremarkable, Soft, Active Bowel Sounds. Negative: Tender Skin: Positive: Clear. Negative: Rash, Wound Musculoskeletal: No Fluid Collection, No Pain, Normal Range of Motion Extremities: Present: normal, upper extr. pulses, lower extr. pulses. Absent: edema - Labs and Meds CBC 10/18/16 Range/Units 04:51 WBC 6.9 (4.5-11.0) K/mm3 RBC 4.83 (3.65-5.03) M/mm3 Hgb 14.3 (11.8-15.2) gm/dl Hct 45.0 (35.5-45.6) % Plt Count 210 (140-440) K/mm3 Lymph # 1.0 L (1.2-5.4) K/mm3 [place] # 0.7 (0.0-0.8) K/mm3 Eos # 0.0 (0.0-0.4) K/mm3 Baso # 0.0 (0.0-0.1) K/mm3 Comprehensive Metabolic Panel 10/18/16 Range/Units 04:51 Sodium 137 (137-145) mmol/L Potassium 4.9 (3.6-5.0) mmol/L Chloride 90.4 L (98-107) mmol/L Carbon Dioxide 19 L (22-30) mmol/L BUN 45 H (9-20) mg/dL Creatinine 9.1 H (0.8-1.5) mg/dL Glucose 130 H (75-100) mg/dL Calcium 9.5 (8.4-10.2) mg/dL - Imaging and Cardiology EKG: report reviewed, image reviewed Pharmacologic stress test: report reviewed (07/2016 was negative for ischemia. Normal coronaries per cath 01/2013) Echo: report reviewed (ef 30% moderate to severe mr) - Telemetry EKG Rhythm: Atrial Fibrillation (118)
[2016-10-18] MEDS ORDERED: CORDARONE 900 MG in D5W 482 ML IV SCH (11:00)
--- NOTE | 2016-10-18 12:45 | Progress Note ---
Assessment and Plan (1) SOB (shortness of breath) Current Visit: Yes Status: Acute Plan to address problem: Multifactorial including from A fib with RVR, NICMP, He is about 3 L above his estimated dry weight, and abdominal distension pushing on his diaphragm Will plan for extra Ultrafilatration today Cardio managing his A fib Oxygen supplement Consider diagnostic/therapeutic parenthesis on Thursday (2) End-stage renal disease needing dialysis Current Visit: Yes Status: Acute Plan to address problem: Hemodialysis on Thursday, Thursday and Thursday schedule. Extra dialysis in the morning if patient is still volume overloaded (3) A fib/A flutter with RVR Current Visit: No Status: Acute Plan to address problem: On amio drip Management per cardio (4) Non ischemic cardiomyopathy EF 30-35% Current Visit: No Status: Acute Plan to address problem: UF on dialysis (5) Hyperkalemia Current Visit: No Status: Acute Plan to address problem: Potassium improved with dialysis. Follow-up (6) Ascites Current Visit: Yes Status: Acute Qualifiers: Ascites type: other type Qualified Code(s): R18.8 - Other ascites Plan to address problem: Paracentesis on Thursday (7)Abdominal pain, acute, right lower quadrant Current Visit: Yes Status: Acute Plan to address problem: Ultrasound nondiagnostic. Follow up on gastroenterology evaluation Diagnostic/therapeutic tap (8) Hematochezia Current Visit: Yes Status: Acute Plan to address problem: Follow up on GI evaluation (9) Hyperkalemia Current Visit: No Status: Acute Plan to address problem: Potassium improved with dialysis. Follow-up (10) Hepatitis C Current Visit: No Status: chronic Plan to address problem: management per GI Subjective Date of service: 10/18/16 Principal diagnosis: sob Interval history: SOB with minimal exertion ++orthopenia S/p HD yesterday Objective - Vital Signs Vital signs: Vital Signs - 12hr 10/18/16 10/18/16 10/18/16 01:13 05:25 08:26 Temperature 97.3 F L 98.4 F 98.6 F Pulse Rate Pulse Rate [ 113 H 118 H 95 H Left Radial] Respiratory 22 22 18 Rate Blood Pressure Blood Pressure 122/85 116/97 127/97 [Right Arm] O2 Sat by Pulse 95 99 93 Oximetry 10/18/16 10/18/16 10/18/16 10:04 10:05 10:31 Temperature Pulse Rate 57 L 57 L 114 H Pulse Rate [ Left Radial] Respiratory Rate Blood Pressure 127/97 127/97 127/97 Blood Pressure [Right Arm] O2 Sat by Pulse Oximetry - General Appearance General appearance: well-developed, well-nourished, moderate distress, fatigue, frail EENT: PERRL, mucous membranes moist Neck: no JVD, no thyromegaly, no carotid bruit, supple Respiratory: Present: Decreased Breath Sounds Cardiology: regular, irregularly irregular, tachycardia, S1S2 Gastrointestinal: normoactive bowel sounds, no tenderness, distended, other (+ ascitis ) Integumentary: no rash, warm and dry Neurologic: no focal deficit, alert and oriented x3, reflexes 2+ and symmetric, gait normal, strength 5/5 Musculoskeletal: other (trace edema LE ) Psychiatric: mood/affect appropriate, cooperative - Lab 10/18/16 04:51 10/18/16 04:51 Most recent lab results Calcium 9.5 mg/dL (8.4-10.2) 10/18/16 04:51
[2016-10-18] MEDS ORDERED: NACL 0.9 (PRIMING MACHINE ONLY DIALYSIS) MC ONE (16:32)
[2016-10-18] MEDS: HEPARIN IV PRN (16:39)
--- NOTE | 2016-10-18 19:11 | Consultation ---
REFERRING PHYSICIAN: Indiana Garcia MD INDICATION: Rectal bleeding. HISTORY OF PRESENT ILLNESS: The patient is a 61-year-old black male with history of end-stage renal disease, noncompliance with hemodialysis. The patient presented with 2 days of shortness of breath with fluid overload. The patient reports he had been having intermittent rectal bleeding with bowel movements, which are worse over the last 24-48 hours. He reports the last colonoscopy was about 5 years ago. He reports no hematemesis. Denies any other specific GI problems or complaints. PAST MEDICAL HISTORY: Hypertension; MS; atrial flutter; and A-fib, on Eliquis; high cholesterol. PAST SURGICAL HISTORY: Status post hernia repair, Perm-A-Cath. MEDICATIONS: See chart. ALLERGIES: HYDRALAZINE. SOCIAL HISTORY: Denies alcohol or tobacco. FAMILY HISTORY: Negative for colon cancer. REVIEW OF SYSTEMS: GENERAL: Reports mild weakness. HEENT: No visual complaints or tinnitus. PULMONARY: No shortness of breath. CARDIOVASCULAR: Chest pain. GASTROINTESTINAL: Reports rectal bleeding. All points of 10-point review of systems otherwise negative. PHYSICAL EXAMINATION: VITAL SIGNS: Temperature of 98.2, pulse 80, respiration 18, blood pressure 116/65. GENERAL: Fairly nourished black male in no acute distress. HEENT: Pupils equal, round, reactive to light and accommodation. Extraocular movements intact. PULMONARY: Clear to auscultation bilaterally. CARDIOVASCULAR: Regular rhythm. Normal S1, S2. ABDOMEN: Positive bowel sounds, soft. SKIN: No obvious rashes. LABORATORY DATA: Pertinent for white count of 6.9, hematocrit of 14.3 and 45.0, platelet count 210,000. INR 1.29. Chem-7 within normal limits except for BUN and creatinine of 45 and 9.1. ASSESSMENT AND PLAN: A 61-year-old male with end-stage renal disease, on dialysis and now presents with fluid overload, now with rectal bleeding. I doubt the patient is having significant rectal bleeding. The patient is concerned and would like further evaluation. PLAN: 1. Follow hematocrit and transfuse as needed. 2. 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 3. We will consider colonoscopy on Thursday based on progress and if cleared JOB# [id number] [facility]
[2016-10-19 06:35] LABS: Albumin 3.5 g/dL (3.9-5); BUN/Creatinine Ratio 5.22; Bilirubin,Total 1.4 mg/dL (0.1-1.2); Calcium 9.6 mg/dL (8.4-10.2); Chloride 86.3 mmol/L (98-107); Potassium 5.3 mmol/L (3.6-5.0); Total Protein 6.9 g/dL (6.3-8.2)
[2016-10-19 06:38] LABS: Basophils % (Auto) 0.1 % (0.0-1.8); Hematocrit 42.4 % (35.5-45.6); Hemoglobin 13.3 gm/dl (11.8-15.2); Mean Corpuscular HGB Conc 31 % (32-34); Mean Corpuscular Hemoglobin 29 pg (28-32); Mean Corpuscular Volume 93 fl (84-94); Platelet Count 192 K/mm3 (140-440); Red Blood Count 4.56 M/mm3 (3.65-5.03); Red Cell Distribution Width 17.3 % (13.2-15.2); White Blood Count 10.2 K/mm3 (4.5-11.0)
--- NOTE | 2016-10-19 07:54 | Progress Note ---
Assessment and Plan - Patient Problems (1) GI bleed Current Visit: Yes Status: Acute Qualifiers: GI bleed type/associated pathology: G Gastritis type: G Plan to address problem: Hemoglobin and hematocrit are stable at this time the patient still admits to seeing blood in the stool. Awaiting GI input. Continue to monitor CBC and transfuse as needed. (2) End-stage renal disease needing dialysis Current Visit: Yes Status: Acute Plan to address problem: Continue hemodialysis per nephrology (3) Atrial fibrillation with RVR Current Visit: No Status: Acute Plan to address problem: Rate controlled at this time. We'll continue metoprolol and Eliquis per cardiology (4) Acute on chronic systolic heart failure Current Visit: No Status: Chronic Plan to address problem: Continue losartan and metoprolol (5) HTN (hypertension) Current Visit: No Status: Chronic Qualifiers: Hypertension type: essential hypertension Qualified Code(s): I10 - Essential (primary) hypertension Plan to address problem: Continue antihypertensives History Interval history: Patient was sitting on the bedside commode this a.m. He admitted to some blood in the stool this morning also Hospitalist Physical - Constitutional Vitals: Temp Pulse Resp BP Pulse Ox 97.7 F 115 H 22 112/78 99 10/19/16 05:49 10/19/16 05:49 10/19/16 05:49 10/19/16 05:49 10/19/16 05:49 General appearance: Present: no acute distress - EENT Eyes: Present: PERRL, EOM intact ENT: hearing intact, clear oral mucosa - Neck Neck: Present: supple, normal ROM - Respiratory Respiratory effort: normal Respiratory: bilateral: CTA - Cardiovascular Rhythm: regular Heart Sounds: Present: S1 & S2 - Extremities Extremities: no ischemia, No edema - Abdominal General gastrointestinal: soft, non-tender, non-distended, normal bowel sounds - Psychiatric Psychiatric: appropriate mood/affect, intact judgment & insight - Neurologic Neurologic: CNII-XII intact, moves all extremities Results - Labs CBC & Chem 7: 10/19/16 05:20 10/19/16 05:20 Labs: Laboratory Last Values WBC 10.2 K/mm3 (4.5-11.0) 10/19/16 05:20 RBC 4.56 M/mm3 (3.65-5.03) 10/19/16 05:20 Hgb 13.3 gm/dl (11.8-15.2) 10/19/16 05:20 Hct 42.4 % (35.5-45.6) 10/19/16 05:20 MCV 93 fl (84-94) 10/19/16 05:20 MCH 29 pg (28-32) 10/19/16 05:20 MCHC 31 % (32-34) L 10/19/16 05:20 RDW 17.3 % (13.2-15.2) H 10/19/16 05:20 Plt Count 192 K/mm3 (140-440) 10/19/16 05:20 Lymph % (Auto) 8.2 % (13.4-35.0) L 10/19/16 05:20 [place] % (Auto) 8.6 % (0.0-7.3) H 10/19/16 05:20 Eos % (Auto) 0.0 % (0.0-4.3) 10/19/16 05:20 Baso % (Auto) 0.1 % (0.0-1.8) 10/19/16 05:20 Lymph # 0.8 K/mm3 (1.2-5.4) L 10/19/16 05:20 [place] # 0.9 K/mm3 (0.0-0.8) H 10/19/16 05:20 Eos # 0.0 K/mm3 (0.0-0.4) 10/19/16 05:20 Baso # 0.0 K/mm3 (0.0-0.1) 10/19/16 05:20 Seg Neutrophils % 83.1 % (40.0-70.0) H 10/19/16 05:20 Seg Neutrophils # 8.5 K/mm3 (1.8-7.7) H 10/19/16 05:20 PT 16.0 Sec. (12.2-14.9) H 10/17/16 05:47 INR 1.29 (0.87-1.13) H 10/17/16 05:47 APTT 30.6 Sec. (24.2-36.6) 10/17/16 05:47 Sodium 140 mmol/L (137-145) 10/19/16 05:20 Potassium 5.3 mmol/L (3.6-5.0) H 10/19/16 05:20 Chloride 86.3 mmol/L (98-107) L 10/19/16 05:20 Carbon Dioxide 15 mmol/L (22-30) L 10/19/16 05:20 Anion Gap 44 mmol/L 10/19/16 05:20 BUN 46 mg/dL (9-20) H 10/19/16 05:20 Creatinine 8.8 mg/dL (0.8-1.5) H 10/19/16 05:20 Estimated GFR 7 ml/min 10/19/16 05:20 BUN/Creatinine Ratio 5.22 % 10/19/16 05:20 Glucose 58 mg/dL (75-100) L 10/19/16 05:20 Calcium 9.6 mg/dL (8.4-10.2) 10/19/16 05:20 Total Bilirubin 1.4 mg/dL (0.1-1.2) H 10/19/16 05:20 AST 305 units/L (5-40) H 10/19/16 05:20 ALT 157 units/L (7-56) H 10/19/16 05:20 Alkaline Phosphatase 103 units/L (35-129) 10/19/16 05:20 NT-Pro-B Natriuret Pep > 70542 pg/mL (0-900) H 10/17/16 08:14 Total Protein 6.9 g/dL (6.3-8.2) 10/19/16 05:20 Albumin 3.5 g/dL (3.9-5) L 10/19/16 05:20 Albumin/Globulin Ratio 1.0 % 10/19/16 05:20 Lipase 77 units/L (13-60) H 10/17/16 05:47 Blood Type O POSITIVE 10/17/16 05:45 Antibody Screen Negative 10/17/16 05:45
[2016-10-19] MEDS: LOPRESSOR PO SCH ×4 (08:30→21:26)
--- NOTE | 2016-10-19 09:01 | Progress Note ---
Assessment and Plan (1) SOB (shortness of breath) Current Visit: Yes Status: Acute Plan to address problem: Multifactorial including from A fib with RVR, NICMP, ESRD with fluid overload, and abdominal distension pushing on his diaphragm He had HD done yesterday 10/18 with 3 L fluid removal. Will plan for more UF in am Cardio managing his A fib Oxygen supplement (2) End-stage renal disease needing dialysis Current Visit: Yes Status: Acute Plan to address problem: Hemodialysis on Thursday, Thursday and Thursday schedule. (3) A fib/A flutter with RVR Current Visit: No Status: Acute Plan to address problem: On amio drip Management per cardio (4) Non ischemic cardiomyopathy EF 30-35% Current Visit: No Status: Acute Plan to address problem: UF on dialysis (5) Hyperkalemia Current Visit: No Status: Acute Plan to address problem: Potassium improved with dialysis. Follow-up (6) Ascites Current Visit: Yes Status: Acute Qualifiers: Ascites type: other type Qualified Code(s): R18.8 - Other ascites Plan to address problem: Paracentesis on Thursday (7)Abdominal pain, acute, right lower quadrant Current Visit: Yes Status: Acute Plan to address problem: Ultrasound nondiagnostic. Follow up on gastroenterology evaluation (8) Hematochezia Current Visit: Yes Status: Acute Plan to address problem: Follow up on GI evaluation (9) Hyperkalemia Current Visit: No Status: Acute Plan to address problem: Medical management for hyperkalemia Low potassium diet-pt had potato chips (10) Hepatitis C Current Visit: No Status: chronic Plan to address problem: management per GI Subjective Date of service: 10/19/16 Principal diagnosis: sob Interval history: SOB with minimal exertion ++orthopenia S/p HD yesterday 10/18 with 3 L fluid removal Objective - Vital Signs Vital signs: Vital Signs - 12hr 10/18/16 10/18/16 10/19/16 21:24 22:00 00:00 Temperature 97.3 F L 97.7 F Pulse Rate [ 104 H 109 H Left Radial] Respiratory 22 22 20 Rate Blood Pressure 106/65 94/56 [Right Arm] O2 Sat by Pulse 98 100 97 Oximetry 10/19/16 05:49 Temperature 97.7 F Pulse Rate [ 115 H Left Radial] Respiratory 22 Rate Blood Pressure 112/78 [Right Arm] O2 Sat by Pulse 99 Oximetry - General Appearance General appearance: well-developed, well-nourished, appears stated age EENT: PERRL, mucous membranes moist Neck: no JVD, no thyromegaly, no carotid bruit, supple Respiratory: Present: Decreased Breath Sounds Cardiology: regular, irregularly irregular, tachycardia, S1S2, no murmurs Gastrointestinal: normoactive bowel sounds, no tenderness, distended Integumentary: no rash, warm and dry Neurologic: no focal deficit, alert and oriented x3, reflexes 2+ and symmetric, gait normal, strength 5/5 Musculoskeletal: other (No edema, clubbing ) Psychiatric: mood/affect appropriate, cooperative - Lab 10/19/16 05:20 10/19/16 05:20 Most recent lab results Calcium 9.6 mg/dL (8.4-10.2) 10/19/16 05:20
--- NOTE | 2016-10-19 11:04 | Progress Note ---
Assessment and Plan Paroxysmal atrial flutter / atrial fibrillation with RVR acute on Chronic systolic heart failure 30-35% - NICMP HTN ESRD on HD Noncompliance with medication regimen Acute elevated liver enzymes rec; hold losartan secondary to lower BP continue metoprolol 25 mg 3 times a day patient will finish off amiodarone and noon today heart rate is A. fib at 111 patient is increase in his LFTs waiting GI and also waiting for stool for occult blood and patient will have dialysis in the a.m. Subjective Date of service: 10/19/16 Principal diagnosis: sob Interval history: Patient 7 shortness of breath when lying down flat and abdominal distention patient feels with no nausea or vomiting did have bowel movements Objective Vital Signs Temp Pulse Pulse Resp BP BP Pulse Ox 10/19/16 10:15 97.6 F 111 H 20 97/67 98 10/19/16 05:49 97.7 F 115 H 22 112/78 99 10/19/16 00:00 97.7 F 109 H 20 94/56 97 10/18/16 22:00 22 100 10/18/16 21:24 97.3 F L 104 H 22 106/65 98 10/18/16 19:00 104 H 10/18/16 18:40 97.5 F L 108 H 24 104/66 10/18/16 17:45 111 H 157/43 10/18/16 17:30 107 H 125/60 10/18/16 17:15 100 H 93/42 10/18/16 17:00 110 H 123/94 10/18/16 16:45 109 H 116/91 10/18/16 16:30 107 H 149/89 10/18/16 16:00 107 H 139/100 10/18/16 15:45 100 H 153/90 10/18/16 15:30 107 H 143/90 10/18/16 15:15 107 H 102/88 10/18/16 15:00 100 H 104/90 10/18/16 14:45 105 H 116/94 10/18/16 14:30 103 H 128/84 10/18/16 14:15 101 H 108/88 10/18/16 14:00 101 H 16 108/88 10/18/16 12:46 98.2 F 89 18 116/65 95 - Physical Examination General: No Apparent Distress HEENT: Positive: PERRL, Normocephaly, Mucus Membranes Moist Neck: Positive: neck supple, trachea midline Cardiac: Positive: Irregularly Regular Lungs: Positive: clear to auscultation Neuro: Positive: Grossly Intact, Cranial Nerve 2-12 Intact Abdomen: Positive: Unremarkable, Soft, Active Bowel Sounds. Negative: Tender Skin: Positive: Clear. Negative: Rash, Wound Musculoskeletal: No Fluid Collection, No Pain, Normal Range of Motion Extremities: Present: normal, upper extr. pulses, lower extr. pulses. Absent: edema - Labs and Meds Cardiac Enzymes 10/19/16 Range/Units 05:20 AST 305 H (5-40) units/L CBC 10/19/16 Range/Units 05:20 WBC 10.2 (4.5-11.0) K/mm3 RBC 4.56 (3.65-5.03) M/mm3 Hgb 13.3 (11.8-15.2) gm/dl Hct 42.4 (35.5-45.6) % Plt Count 192 (140-440) K/mm3 Lymph # 0.8 L (1.2-5.4) K/mm3 [place] # 0.9 H (0.0-0.8) K/mm3 Eos # 0.0 (0.0-0.4) K/mm3 Baso # 0.0 (0.0-0.1) K/mm3 Comprehensive Metabolic Panel 10/19/16 Range/Units 05:20 Sodium 140 (137-145) mmol/L Potassium 5.3 H (3.6-5.0) mmol/L Chloride 86.3 L (98-107) mmol/L Carbon Dioxide 15 L (22-30) mmol/L BUN 46 H (9-20) mg/dL Creatinine 8.8 H (0.8-1.5) mg/dL Glucose 58 L (75-100) mg/dL Calcium 9.6 (8.4-10.2) mg/dL AST 305 H (5-40) units/L ALT 157 H (7-56) units/L Alkaline Phosphatase 103 (35-129) units/L Total Protein 6.9 (6.3-8.2) g/dL Albumin 3.5 L (3.9-5) g/dL - Imaging and Cardiology EKG: report reviewed, image reviewed Echo: report reviewed (ef 30% moderate to severe mr) - Telemetry EKG Rhythm: Atrial Fibrillation (111)
--- NOTE | 2016-10-19 13:17 | Gastroenterology Progress Note ---
Assessment and Plan GI: rectal bleeding but stable - colon in am Subjective Date of service: 10/19/16 Principal diagnosis: sob Interval history: - reports continued rectal bleeding, wants colon Objective - Constitutional Vitals: Temp Pulse Resp BP Pulse Ox 97.6 F 111 H 20 97/67 98 10/19/16 10:15 10/19/16 10:15 10/19/16 10:15 10/19/16 10:15 10/19/16 10:15 General appearance: no acute distress - Respiratory Respiratory: bilateral: CTA - Cardiovascular Rhythm: regular Heart Sounds: Present: S1 & S2 - Gastrointestinal General gastrointestinal: Present: soft, non-tender, non-distended - Labs CBC & Chem 7: 10/19/16 05:20 10/19/16 05:20 Labs: Laboratory Results - last 24 hr 10/19/16 10/19/16 05:20 05:20 WBC 10.2 RBC 4.56 Hgb 13.3 Hct 42.4 MCV 93 MCH 29 MCHC 31 L RDW 17.3 H Plt Count 192 Lymph % (Auto) 8.2 L [place] % (Auto) 8.6 H Eos % (Auto) 0.0 Baso % (Auto) 0.1 Lymph # 0.8 L [place] # 0.9 H Eos # 0.0 Baso # 0.0 Seg Neutrophils % 83.1 H Seg Neutrophils # 8.5 H Sodium 140 Potassium 5.3 H Chloride 86.3 L Carbon Dioxide 15 L Anion Gap 44 BUN 46 H Creatinine 8.8 H Estimated GFR 7 BUN/Creatinine Ratio 5.22 Glucose 58 L Calcium 9.6 Total Bilirubin 1.4 H AST 305 H ALT 157 H Alkaline Phosphatase 103 Total Protein 6.9 Albumin 3.5 L Albumin/Globulin Ratio 1.0
[2016-10-19] MEDS: ELIQUIS PO SCH ×2 (14:47→21:27)
[2016-10-19] MEDS: NORVASC PO SCH ×2 (14:48→15:18)
[2016-10-19] MEDS ORDERED: GOLYTELY PO ONE (17:00)
[2016-10-20 06:20] LABS: Basophils % (Auto) 0.1 % (0.0-1.8); Mean Corpuscular HGB Conc 32 % (32-34); Mean Corpuscular Hemoglobin 29 pg (28-32); Mean Corpuscular Volume 92 fl (84-94); Platelet Count 203 K/mm3 (140-440); Red Cell Distribution Width 16.8 % (13.2-15.2); White Blood Count 10.6 K/mm3 (4.5-11.0)
[2016-10-20 06:33] LABS: Albumin 3.5 g/dL (3.9-5); BUN/Creatinine Ratio 8.04; Bilirubin,Total 1.2 mg/dL (0.1-1.2); Calcium 9.4 mg/dL (8.4-10.2); Chloride 84.6 mmol/L (98-107); Potassium 5.9 mmol/L (3.6-5.0); Total Protein 6.9 g/dL (6.3-8.2)
[2016-10-20] MEDS: LOPRESSOR PO SCH ×3 (07:55→20:44)
--- NOTE | 2016-10-20 11:02 | Progress Note ---
Assessment and Plan (1) SOB (shortness of breath) Current Visit: Yes Status: Acute Plan to address problem: Multifactorial including from A fib with RVR, NICMP, ESRD with fluid overload HD today with goal fluid removal of 2-3 L as tolerated. Will consider extra UF in am Cardio managing his A fib Oxygen supplement (2) End-stage renal disease needing dialysis Current Visit: Yes Status: Acute Plan to address problem: Hemodialysis on Thursday, Thursday and Thursday schedule. (3) A fib/A flutter with RVR Current Visit: No Status: Acute Plan to address problem: Management per cardio (4) Non ischemic cardiomyopathy EF 30-35% Current Visit: No Status: Acute Plan to address problem: UF on dialysis (5) Hyperkalemia Current Visit: No Status: Acute Plan to address problem: Will correct on HD today. Recheck potassium level 2 hrs after dialysis (6) Ascites Current Visit: Yes Status: Acute Qualifiers: Ascites type: other type Qualified Code(s): R18.8 - Other ascites Plan to address problem: GI following (7)Abdominal pain, acute, right lower quadrant Current Visit: Yes Status: Acute Plan to address problem: Ultrasound nondiagnostic. Follow up on gastroenterology evaluation (8) Hematochezia Current Visit: Yes Status: Acute Plan to address problem: Follow up on GI evaluation (9) Hepatitis C Current Visit: No Status: chronic Plan to address problem: management per GI Subjective Date of service: 10/20/16 Principal diagnosis: sob Interval history: +SOB , receiving dialysis Objective - Exam Narrative Exam: General appearance: well-developed, well-nourished, appears stated age, in moderate resp distress EENT: PERRL, mucous membranes moist Neck: no JVD, no thyromegaly, no carotid bruit, supple Respiratory: Present: Decreased Breath Sounds Cardiology: regular, irregularly irregular, tachycardia, S1S2, no murmurs Gastrointestinal: normoactive bowel sounds, no tenderness, distended Integumentary: no rash, warm and dry Neurologic: no focal deficit, alert and oriented x3, reflexes 2+ and symmetric, gait normal, strength 5/5 Musculoskeletal: other (No edema, clubbing ) Psychiatric: mood/affect appropriate, cooperative - Vital Signs Vital signs: Vital Signs - 12hr 10/19/16 10/20/16 10/20/16 23:19 01:07 04:25 Temperature 97.4 F L Pulse Rate 94 H Pulse Rate [ 97 H Left Radial] Respiratory 22 16 Rate Blood Pressure Blood Pressure 110/76 109/69 [Right Arm] O2 Sat by Pulse 99 97 Oximetry 10/20/16 10/20/16 07:55 09:27 Temperature Pulse Rate Pulse Rate [ 107 H Left Radial] Respiratory Rate Blood Pressure 109/69 Blood Pressure 97/74 [Right Arm] O2 Sat by Pulse Oximetry - Lab 10/20/16 04:48 10/20/16 04:48 Most recent lab results Calcium 9.4 mg/dL (8.4-10.2) 10/20/16 04:48
[2016-10-20] MEDS ORDERED: ELIQUIS PO SCH (12:00)
--- NOTE | 2016-10-20 13:05 | Progress Note ---
Assessment and Plan Assessment: Paroxysmal atrial flutter / atrial fibrillation with RVR Chronic systolic heart failure 30-35% NICMP H/o HTN - currently with hypotension. ESRD on HD Noncompliance with medication regimen Plan: D/c amlodipine in setting of hypotension. Cont Lopressor, 25mg PO TID. Hold for HR <60 and SBP <100. Hold eliquis in setting of impending colonoscopy per GI. Resume if/when cleared by GI to resume. Pt is currently at moderate cardiovascular risk for colonoscopy. There are no immediate cardiac contraindications to proceeding with procedure at this time. Cont tele. Assessment and plan reviewed with pt at bedside. The patient has been seen in conjunction with Dr. Anglin who agrees with the assessment and plan of care. Subjective Date of service: 10/20/16 Principal diagnosis: sob Interval history: No complaints, remains in AFlutter with RVR, HR 100s - 115s, BPs stable. Underwent HD this AM. Objective Last Vital Signs Temp 97.7 F 10/20/16 12:03 Pulse 51 L 10/20/16 12:45 Resp 18 10/20/16 12:03 BP 118/58 10/20/16 12:45 Pulse Ox 97 10/20/16 04:25 - Physical Examination General: No Apparent Distress HEENT: Positive: PERRL, Normocephaly, Mucus Membranes Moist Neck: Positive: neck supple, trachea midline Cardiac: Positive: irregularly irregular, S1/S2 Lungs: Positive: Normal Exam, clear to auscultation, Normal Breath Sounds Neuro: Positive: Grossly Intact, Cranial Nerve 2-12 Intact Abdomen: Positive: Unremarkable, Soft, Active Bowel Sounds. Negative: Tender Skin: Positive: Clear. Negative: Rash, Wound Musculoskeletal: No Fluid Collection, No Pain, Normal Range of Motion Extremities: Present: normal, upper extr. pulses, lower extr. pulses. Absent: edema - Labs and Meds Cardiac Enzymes 10/20/16 Range/Units 04:48 AST 364 H (5-40) units/L CBC 10/20/16 Range/Units 04:48 WBC 10.6 (4.5-11.0) K/mm3 RBC 4.80 (3.65-5.03) M/mm3 Hgb 14.0 (11.8-15.2) gm/dl Hct 44.0 (35.5-45.6) % Plt Count 203 (140-440) K/mm3 Lymph # 1.1 L (1.2-5.4) K/mm3 [place] # 0.8 (0.0-0.8) K/mm3 Eos # 0.0 (0.0-0.4) K/mm3 Baso # 0.0 (0.0-0.1) K/mm3 Comprehensive Metabolic Panel 10/20/16 Range/Units 04:48 Sodium 133 L (137-145) mmol/L Potassium 5.9 H (3.6-5.0) mmol/L Chloride 84.6 L (98-107) mmol/L Carbon Dioxide 20 L (22-30) mmol/L BUN 78 H (9-20) mg/dL Creatinine 9.7 H (0.8-1.5) mg/dL Glucose 104 H (75-100) mg/dL Calcium 9.4 (8.4-10.2) mg/dL AST 364 H (5-40) units/L ALT 237 H (7-56) units/L Alkaline Phosphatase 108 (35-129) units/L Total Protein 6.9 (6.3-8.2) g/dL Albumin 3.5 L (3.9-5) g/dL - Imaging and Cardiology EKG: report reviewed, image reviewed Echo: report reviewed (ef 30% moderate to severe mr) - Telemetry EKG Rhythm: Atrial Flutter
--- NOTE | 2016-10-20 14:06 | Anesthesia Day of Surgery ---
Anesthesia Day of Surgery - Day of Surgery Patient Examined: Yes Patient H&P Reviewed: Yes Patient is NPO: Yes Beta Blockers: Yes Cardiac Clearance: No Pulmonary Clearance: No
[2016-10-20] MEDS: HEPARIN 10,000 UNITS/10 ML IV PRN (14:18)
[2016-10-20] MEDS: HEPARIN IV PRN (14:20)
[2016-10-20] MEDS ORDERED: NACL 0.9% 1000 ML 1,000 ML IV SCH (15:00)
--- NOTE | 2016-10-20 15:01 | Anesthesia Day of Surgery ---
Anesthesia Day of Surgery - Day of Surgery Patient Examined: Yes Patient H&P Reviewed: Yes Patient is NPO: Yes Beta Blockers: Yes Cardiac Clearance: No Pulmonary Clearance: No
--- NOTE | 2016-10-20 15:02 | Anesthesia Consultation ---
Anesthesia Consult and Med Hx Date of service: 10/20/16 - Airway Anesthetic Teeth Evaluation: Poor (multiple missing) ROM Head & Neck: Adequate Mental/Hyoid Distance: Adequate Mallampati Class: Class II Intubation Access Assessment: Probably Good - Pulmonary Exam CTA: Yes - Cardiac Exam Cardiac Exam: RRR - Pre-Operative Health Status ASA Pre-Surgery Classification: ASA4 Proposed Anesthetic Plan: MAC - Pulmonary Hx Smoking: No Hx Asthma: No COPD: No Hx Pneumonia: No Hx Sleep Apnea: No - Cardiovascular System Hx Hypertension: Yes Hx Coronary Artery Disease: No (Cardiomyopathy EF 25-30%, another report states 45-50%) Hx Cardia Arrhythmia: Yes (AF) - Central Nervous System Hx Psychiatric Problems: No - Endocrine Hx Renal Disease: Yes (ESRD dailysis M,W, F just came from dialysis) Hx End Stage Renal Disease: Yes Hx Liver Disease: Yes (HEP C with ascites) - Hematic Hx Anemia: Yes - Other Systems Hx Substance Use: Yes (Stopped using cocaine at 1999) Hx Cancer: No
[2016-10-20] MEDS ORDERED: DIPRIVAN 10 MG/ML IV ONE ×2 (15:10)
--- NOTE | 2016-10-20 16:41 | Post Anesthesia Evaluation ---
- Post Anesthesia Evaluation Patient Participated: Yes Airway Patent: Yes Stable Respiratory Function: Yes Nausea/Vomiting: No Temp > 96.8F: Yes Pain Manageable: Yes Adequeate Hydration: Yes Anesthesia Complications: No
--- NOTE | 2016-10-20 17:02 | Post Operative Note ---
Pre-op diagnosis: gi bleed Post-op diagnosis: same Findings: Colonoscopy: some old blood noted - large internal hemorrhoids - poor prep - negative other Procedure: Colonoscopy Anesthesia: MAC Surgeon: VALERY JAY Estimated blood loss: none Pathology: none Condition: stable Disposition: floor
[2016-10-20] MEDS ORDERED: PROCTOSOL-HC PR PRN (17:04)
--- NOTE | 2016-10-20 17:13 | Progress Note ---
Assessment and Plan 65-year-old male with a past medical history of end-stage renal disease A. fib/ A flutter on eliquis who presents with shortness of breath, abdominal pain and bloody stool. 1. Fluid overload. Improved with HD 2. Acute on chronic systolic hear failure with EF 30-35% 2. Hypertension controlled. with sligh hypotension. Adjust BP meds 3. A. fib with RVR. Rate controlled Patient to be put back on beta rochelle, continue eliquis for stroke prophylaxis 4. GI bleed Hemoglobin is stable. Colonoscopy today showed internal hemorrhoid with no acitve bleeding. 5. DVT prophylaxis patient is already fully anticoagulant D/c planning in am Subjective Date of service: 10/20/16 Principal diagnosis: sob Interval history: Still having dark tarry stool. Had colonoscopy today Objective - Constitutional Vitals: Vital Signs - 12hr 10/20/16 10/20/16 10/20/16 07:55 09:27 10:30 Temperature Pulse Rate 104 H Pulse Rate [ 107 H Left Radial] Respiratory Rate Blood Pressure 109/69 110/45 Blood Pressure 97/74 [Right Arm] O2 Sat by Pulse Oximetry 10/20/16 10/20/16 10/20/16 10:45 11:00 11:15 Temperature Pulse Rate 113 H 116 H 118 H Pulse Rate [ Left Radial] Respiratory Rate Blood Pressure 119/85 112/73 117/74 Blood Pressure [Right Arm] O2 Sat by Pulse Oximetry 10/20/16 10/20/16 10/20/16 11:45 12:00 12:03 Temperature 97.7 F Pulse Rate 109 H 119 H 104 H Pulse Rate [ Left Radial] Respiratory 18 Rate Blood Pressure 120/70 112/69 110/84 Blood Pressure [Right Arm] O2 Sat by Pulse Oximetry 10/20/16 10/20/16 10/20/16 12:15 12:30 12:45 Temperature Pulse Rate 119 H 67 51 L Pulse Rate [ Left Radial] Respiratory Rate Blood Pressure 112/9 126/68 118/58 Blood Pressure [Right Arm] O2 Sat by Pulse Oximetry 10/20/16 10/20/16 10/20/16 13:00 13:15 13:30 Temperature Pulse Rate 81 46 L 53 L Pulse Rate [ Left Radial] Respiratory Rate Blood Pressure 101/71 160/72 104/62 Blood Pressure [Right Arm] O2 Sat by Pulse Oximetry 10/20/16 10/20/16 10/20/16 13:45 14:00 14:15 Temperature Pulse Rate 84 98 H 78 Pulse Rate [ Left Radial] Respiratory Rate Blood Pressure 102/57 101/71 113/60 Blood Pressure [Right Arm] O2 Sat by Pulse Oximetry 10/20/16 10/20/16 10/20/16 14:37 15:01 15:04 Temperature 97.8 F 97.5 F L 97.5 F L Pulse Rate 78 89 89 Pulse Rate [ Left Radial] Respiratory 18 18 18 Rate Blood Pressure 113/60 90/61 90/61 Blood Pressure [Right Arm] O2 Sat by Pulse 98 98 Oximetry 10/20/16 10/20/16 10/20/16 16:12 16:27 16:42 Temperature 97.8 F Pulse Rate 101 H 103 H 102 H Pulse Rate [ Left Radial] Respiratory 15 17 13 Rate Blood Pressure 97/62 95/64 91/61 Blood Pressure [Right Arm] O2 Sat by Pulse 94 98 100 Oximetry 10/20/16 16:54 Temperature Pulse Rate 10 L Pulse Rate [ Left Radial] Respiratory 18 Rate Blood Pressure 98/75 Blood Pressure [Right Arm] O2 Sat by Pulse 100 Oximetry General appearance: Present: no acute distress, well-nourished - EENT Eyes: PERRL, EOM intact ENT: hearing intact, clear oral mucosa - Neck Neck: supple, normal ROM - Respiratory Respiratory effort: normal Respiratory: bilateral: CTA - Cardiovascular Rhythm: regular Heart Sounds: Present: S1 & S2. Absent: gallop, rub Extremities: pulses intact, No edema, normal color, Full ROM - Gastrointestinal General gastrointestinal: Present: soft, non-tender, non-distended, normal bowel sounds - Genitourinary Male genitourinary: normal - Integumentary Integumentary: clear, warm, dry - Musculoskeletal Musculoskeletal: 1, strength equal bilaterally - Neurologic Neurologic: moves all extremities - Psychiatric Psychiatric: memory intact, appropriate mood/affect, intact judgment & insight - Labs CBC & Chem 7: 10/20/16 04:48 10/20/16 04:48 Labs: Abnormal lab results 10/20/16 10/20/16 Range/Units 04:48 04:48 RDW 16.8 H (13.2-15.2) % Lymph % (Auto) 10.7 L (13.4-35.0) % [place] % (Auto) 7.4 H (0.0-7.3) % Lymph # 1.1 L (1.2-5.4) K/mm3 Seg Neutrophils % 81.8 H (40.0-70.0) % Seg Neutrophils # 8.7 H (1.8-7.7) K/mm3 Sodium 133 L (137-145) mmol/L Potassium 5.9 H (3.6-5.0) mmol/L Chloride 84.6 L (98-107) mmol/L Carbon Dioxide 20 L (22-30) mmol/L BUN 78 H (9-20) mg/dL Creatinine 9.7 H (0.8-1.5) mg/dL Glucose 104 H (75-100) mg/dL AST 364 H (5-40) units/L ALT 237 H (7-56) units/L Albumin 3.5 L (3.9-5) g/dL
--- NOTE | 2016-10-21 01:10 | Operative Report ---
PROCEDURE: Colonoscopy. INDICATION: Rectal bleeding. MEDICATIONS: Propofol per HUNTING GUIDE. COMPLICATIONS: None. DESCRIPTION OF PROCEDURE: The patient was brought to procedure suite. The patient had the procedure discussed with him at length. All risks, complications, and benefits discussed, which the patient signed for the procedure to be performed. The patient was placed in left lateral decubitus position. Rectal exam performed prior to insertion of scope. After adequate sedation medication as above, endoscope was placed in the rectum and brought to the level of the cecum. Ileocecal valve and appendiceal orifice, cecal strap were visualized. Colonoscope was then removed and mucosa of colon visualized. Prep quality was poor, but procedure was completed. No complications during the procedure. FINDINGS: There was noted to be a poor prep but procedure was completed. No obvious mass lesions, polyps, or diverticula noted during this procedure. There was some blood noted in the distal colon. No signs of active bleeding were noted. Retroflexion view performed in the rectum showed medium to large internal hemorrhoids. The patient tolerated the procedure well. No complications during the procedure. IMPRESSION: 1. Poor prep, procedure completed. 2. Old blood in distal colon, but no signs of active bleeding. 3. Internal hemorrhoids. PLAN: 1. High fiber diet, increase water intake. 2. Anal Anusol-HC suppositories b.i.d. 3. Advance diet. 4. If rectal bleeding recurs, consider surgical consult for possible hemorrhoid treatment. 5. The patient is otherwise stable for discharge from a GI standpoint, we will call if needed. JOB# [id number] CAB/NTS
[2016-10-21] MEDS ORDERED: XYLOCAINE TOPICAL 2% ONE (08:27)
[2016-10-21] MEDS ORDERED: ePHEDrine SULFATE ONE (08:27)
[2016-10-21] MEDS ORDERED: NACL P/F VIAL (10 ML) ONE (08:27)
--- NOTE | 2016-10-21 09:22 | Progress Note ---
Assessment and Plan (1) SOB (shortness of breath) Current Visit: Yes Status: Acute Plan to address problem: Multifactorial including from A fib with RVR, NICMP, ESRD with fluid overload HD on MWF schedule. SOB improved. (2) End-stage renal disease needing dialysis Current Visit: Yes Status: Acute Plan to address problem: Hemodialysis on Thursday, Thursday and Thursday schedule. (3) A fib/A flutter with RVR Current Visit: No Status: Acute Plan to address problem: rate controlled. (4) Non ischemic cardiomyopathy EF 30-35% Current Visit: No Status: Acute Plan to address problem: UF on dialysis (5) Hyperkalemia Current Visit: No Status: Acute Plan to address problem: K improved with dialysis. (6) Ascites Current Visit: Yes Status: Acute Qualifiers: Ascites type: other type Qualified Code(s): R18.8 - Other ascites Plan to address problem: GI following (7)Abdominal pain, acute, right lower quadrant Current Visit: Yes Status: Acute Plan to address problem: Resolved (8) Hematochezia Current Visit: Yes Status: Acute Plan to address problem: S/p colonoscope. Resolved. (9) Hepatitis C Current Visit: No Status: chronic Plan to address problem: Management per GI Subjective Date of service: 10/21/16 Principal diagnosis: sob Interval history: +SOB Objective - Exam Narrative Exam: General appearance: well-developed, well-nourished, appears stated age, in moderate resp distress EENT: PERRL, mucous membranes moist Neck: no JVD, no thyromegaly, no carotid bruit, supple Respiratory: Present: Decreased Breath Sounds Cardiology: regular, irregularly irregular, tachycardia, S1S2, no murmurs Gastrointestinal: normoactive bowel sounds, no tenderness, distended Integumentary: no rash, warm and dry Neurologic: no focal deficit, alert and oriented x3, reflexes 2+ and symmetric, gait normal, strength 5/5 Musculoskeletal: other (No edema, clubbing ) Psychiatric: mood/affect appropriate, cooperative - Vital Signs Vital signs: Vital Signs - 12hr 10/20/16 10/21/16 10/21/16 23:00 00:20 04:45 Temperature 97.6 F 98.1 F Pulse Rate 92 H Pulse Rate [ 56 L 64 Left Radial] Respiratory 20 18 Rate Blood Pressure 87/84 111/66 [Right Arm] O2 Sat by Pulse 93 97 Oximetry - Lab 10/20/16 04:48 10/20/16 04:48 Most recent lab results Calcium 9.4 mg/dL (8.4-10.2) 10/20/16 04:48
[2016-10-21] MEDS: LOPRESSOR PO SCH ×3 (09:30→20:17)
--- NOTE | 2016-10-21 10:31 | Progress Note ---
Assessment and Plan Assessment: Paroxysmal atrial flutter / atrial fibrillation - currently with CVR Chronic systolic heart failure 30-35% NICMP H/o HTN - currently with hypotension. ESRD on HD Noncompliance with medication regimen Plan: Cont Lopressor, 25mg PO TID. Hold for HR <60 and SBP <100. S/p colonoscopy yesterday which revealed large internal hemorrhoids. May resume Eliquis per GI. Will resume. Currently stable cardiac status. Pt may discharge home from cardiology standpoint. Follow up in our [place] office with Dr. Gomez on 11/03/2016 @ 1:30PM. Assessment and plan reviewed with pt at bedside. The patient has been seen in conjunction with Dr. Anglin who agrees with the assessment and plan of care. Subjective Date of service: 10/21/16 Principal diagnosis: sob Interval history: No complaints, remains in AFib with HR now controlled in 90s, BPs stable. s/p colonoscopy yesterday. Objective Last Vital Signs Temp 97.4 F L 10/21/16 09:39 Pulse 58 L 10/21/16 09:39 Resp 14 10/21/16 09:39 BP 91/56 10/21/16 09:39 Pulse Ox 95 10/21/16 09:39 - Physical Examination General: No Apparent Distress HEENT: Positive: PERRL, Normocephaly, Mucus Membranes Moist Neck: Positive: neck supple, trachea midline Cardiac: Positive: irregularly irregular, S1/S2 Lungs: Positive: clear to auscultation, Normal Breath Sounds Neuro: Positive: Grossly Intact, Cranial Nerve 2-12 Intact Abdomen: Positive: Unremarkable, Soft, Active Bowel Sounds. Negative: Tender Skin: Positive: Clear. Negative: Rash, Wound Musculoskeletal: No Fluid Collection, No Pain, Normal Range of Motion Extremities: Present: normal, upper extr. pulses, lower extr. pulses. Absent: edema - Imaging and Cardiology EKG: report reviewed, image reviewed Echo: report reviewed (ef 30% moderate to severe mr) - Telemetry EKG Rhythm: Atrial Fibrillation
[2016-10-21] MEDS: ELIQUIS PO SCH ×2 (12:30→21:31)
--- NOTE | 2016-10-21 20:58 | Progress Note ---
Assessment and Plan 65-year-old male with a past medical history of end-stage renal disease A. fib/ A flutter on eliquis who presents with shortness of breath, abdominal pain and bloody stool. 1. Fluid overload. Improved Improved with HD 2. Acute on chronic systolic hear failure with EF 30-35%. Stable 3. Hypertension controlled. with sligh hypotension. Adjust BP meds 4. A. fib with RVR. Rate controlled Patient to be put back on beta rochelle, continue eliquis for stroke prophylaxis 5. GI bleed Hemoglobin is stable. Colonoscopy showed internal hemorrhoid with no acitve bleeding. 6. DVT prophylaxis patient is already fully anticoagulant Awaiting placemtn as pt has no home to go to Subjective Date of service: 10/21/16 Principal diagnosis: sob Interval history: Still having dark tarry stool. Had colonoscopy.Awating placemtn as pt has no home to go to. Objective - Constitutional Vitals: Vital Signs - 12hr 10/21/16 10/21/16 10/21/16 09:39 10:00 12:13 Temperature 97.4 F L 97.5 F L Pulse Rate Pulse Rate [ 58 L 87 76 Right] Respiratory 14 20 20 Rate Respiratory 20 Rate [DENIES] Blood Pressure Blood Pressure 91/56 124/64 [Right Arm] O2 Sat by Pulse 95 98 Oximetry 10/21/16 10/21/16 10/21/16 17:06 19:56 20:10 Temperature 97.9 F 98.9 F Pulse Rate Pulse Rate [ 60 55 L Right] Respiratory 16 19 18 Rate Respiratory Rate [DENIES] Blood Pressure Blood Pressure 102/66 79/53 [Right Arm] O2 Sat by Pulse 97 90 90 Oximetry 10/21/16 20:17 Temperature Pulse Rate 55 L Pulse Rate [ Right] Respiratory Rate Respiratory Rate [DENIES] Blood Pressure 73/59 Blood Pressure [Right Arm] O2 Sat by Pulse Oximetry General appearance: Present: no acute distress - EENT Eyes: PERRL, EOM intact - Neck Neck: supple, normal ROM - Respiratory Respiratory effort: normal Respiratory: bilateral: CTA - Cardiovascular Rhythm: regular Heart Sounds: Present: S1 & S2. Absent: gallop, rub Extremities: pulses intact, No edema, normal color, Full ROM - Gastrointestinal General gastrointestinal: Present: soft, non-tender - Integumentary Integumentary: clear, warm, dry - Musculoskeletal Musculoskeletal: 1, strength equal bilaterally - Neurologic Neurologic: moves all extremities - Psychiatric Psychiatric: appropriate mood/affect, intact judgment & insight - Labs CBC & Chem 7: 10/20/16 04:48 10/20/16 04:48
[2016-10-22 04:54] LABS: Basophils % (Auto) 0.3 % (0.0-1.8); Eosinophils % (Auto) 2.5 % (0.0-4.3); Hematocrit 39.5 % (35.5-45.6); Hemoglobin 12.6 gm/dl (11.8-15.2); Mean Corpuscular HGB Conc 32 % (32-34); Mean Corpuscular Hemoglobin 29 pg (28-32); Mean Corpuscular Volume 91 fl (84-94); Platelet Count 150 K/mm3 (140-440); Red Blood Count 4.32 M/mm3 (3.65-5.03); Red Cell Distribution Width 17.4 % (13.2-15.2)
[2016-10-22 05:08] LABS: Albumin 2.6 g/dL (3.9-5); Albumin/Globulin Ratio 0.9 %; BUN/Creatinine Ratio 7.75; Bilirubin,Total 0.5 mg/dL (0.1-1.2); Calcium 8.4 mg/dL (8.4-10.2); Chloride 92.5 mmol/L (98-107); Potassium 4.2 mmol/L (3.6-5.0); Total Protein 5.6 g/dL (6.3-8.2)
[2016-10-22] MEDS: ELIQUIS PO SCH (09:26)
[2016-10-22] MEDS: LOPRESSOR PO SCH (09:29)
--- NOTE | 2016-10-22 09:47 | Discharge Summary ---
Providers - Providers Date of Admission: 10/17/16 09:58 Date of discharge: 10/22/16 Attending physician: DELMIS DECKER 10/17/16 10:35 Consult to Physician [CONS] Routine Consulting Provider: MARY ANN CORCORAN Reason For Exam: esrd Place consult to:: [facility]so Notified:: yes Was contact made?: Yes 10/17/16 15:07 Consult to Physician [CONS] Routine Consulting Provider: REESE CHEEMA Reason For Exam: Afib with RVR Place consult to:: [facility] Notified:: HEDY Was contact made?: Yes 10/18/16 09:32 Consult to Physician [CONS] Routine Consulting Provider: BROOK ZAMBRANO Reason For Exam: GI bleed Place consult to:: Dr. Zambrano Notified:: Gabriella CANNON Was contact made?: Yes If yes, spoke with:: Dr. Philipp Mcgovern Time called:: 10:56 Primary care physician: CHEYANNE LÓPEZ Hospitalization Reason for admission: SOB, Abdominal pain, Melena Condition: Stable Pertinent studies: Chest x-ray showed minimal right pleural effusion possible with stable cardiomegaly and right-sided central catheter. X-ray of abdomen showed probable enteritis. No definite evidence of small bowel obstruction. Procedures: Colonoscopy showed old blood noted, and large internal hemorrhoids. Hospital course: Patient is 59-year-old gentleman was a history of end-stage disease on hemodialysis on Thursday was as of Fridays, atrial fibrillation or atrial flutter anticoagulated on Eliquis, noncompliant with his hemodialysis and with medication presented emergency department or shortness of breath for 2 days. Also had associated abdominal pain. Endorses dark blood in the stool. Also complains of orthopnea proximal nocturnal dyspnea. Denies any chest pain or palpitation. On admission the nephrology consult was obtained. Hemodialysis was commenced. Cardiology consult was obtained. Echocardiogram showed the patient had a chronic systolic heart failure with ejection fraction of 30-35%. Patient had reported of dark blood in the stool. GI consult was obtained. Colonoscopy was done. Findings were unremarkable for large internal hemorrhoid with bleeding. With continuous hemodialysis. Shortness of breath improved. Patient is on beta blockers as well as isosorbide. Heart rate remained controlled. But assess for hemodialysis was secured. Patient therefore discharged to follow primary care physician, crosscutter as well as investigative writer. Counseling on compliance with his hemodialysis was also done. Core Measure Documentation - Palliative Care Palliative Care/ Comfort Measures: Not Applicable - Core Measures Any of the following diagnoses?: heart failure - Heart Failure Discharge Requirements DARREN/ARB for LVSD if EF <40%: Yes Beta rochelle at discharge: Yes Exam - Constitutional Vitals: Temp Pulse Resp BP Pulse Ox 97.7 F 106 H 20 84/60 98 10/22/16 08:00 10/22/16 09:29 10/22/16 08:00 10/22/16 09:07 10/22/16 08:00 General appearance: Present: no acute distress, well-nourished - EENT Eyes: Present: PERRL ENT: hearing intact, clear oral mucosa - Neck Neck: Present: supple, normal ROM - Respiratory Respiratory effort: normal Respiratory: bilateral: CTA - Cardiovascular Heart Sounds: Present: S1 & S2. Absent: rub, click - Extremities Extremities: pulses symmetrical, No edema Peripheral Pulses: within normal limits - Abdominal General gastrointestinal: Present: soft, non-tender, non-distended, normal bowel sounds Male genitourinary: Present: normal - Integumentary Integumentary: Present: clear, warm, dry - Musculoskeletal Musculoskeletal: gait normal, strength equal bilaterally - Psychiatric Psychiatric: appropriate mood/affect, intact judgment & insight - Neurologic Neurologic: moves all extremities Plan Activity: advance as tolerated Diet: low fat, low cholesterol, low salt Special Instructions: record daily BP diary Follow up with: CHEYANNE LÓPEZ DO [Primary Care Provider] - 3-5 Days Forms: Accompanied Note Prescriptions: Apixaban [Eliquis] 2.5 mg PO QDAY #30 tablet Losartan [Cozaar] 50 mg PO QDAY #30 tablet Metoprolol Xl [Metoprolol SUCCINATE ER TAB] 50 mg PO QDAY #30 tablet
[2016-10-22] MEDS ORDERED: SENSIPAR PO SCH (10:00)
[2016-10-22] MEDS ORDERED: NACL 0.9 (PRIMING MACHINE ONLY DIALYSIS) MC ONE (11:18)
[2016-10-22] MEDS: HEPARIN 10,000 UNITS/10 ML IV PRN (11:24)
--- NOTE | 2016-10-22 11:39 | Progress Note ---
Assessment and Plan (1) SOB (shortness of breath) Current Visit: Yes Status: Acute Plan to address problem: Multifactorial including from A fib with RVR, NICMP, ESRD with fluid overload HD on MWF schedule (2) End-stage renal disease needing dialysis Current Visit: Yes Status: Acute Plan to address problem: Hemodialysis today. (3) A fib/A flutter with RVR Current Visit: No Status: Acute Plan to address problem: rate controlled. (4) Non ischemic cardiomyopathy EF 30-35% Current Visit: No Status: Acute Plan to address problem: UF on dialysis (5) Hyperkalemia Current Visit: No Status: Acute Plan to address problem: K improved with dialysis. (6) Ascites Current Visit: Yes Status: Acute Qualifiers: Ascites type: other type Qualified Code(s): R18.8 - Other ascites Plan to address problem: GI following (7)Abdominal pain, acute, right lower quadrant Current Visit: Yes Status: Acute Plan to address problem: Resolved (8) Hematochezia Current Visit: Yes Status: Acute Plan to address problem: S/p colonoscope. Resolved. (9) Hepatitis C Current Visit: No Status: chronic Plan to address problem: Management per GI Subjective Date of service: 10/22/16 Principal diagnosis: sob Interval history: +SOB Objective - Exam Narrative Exam: General appearance: well-developed, well-nourished, appears stated age, in moderate resp distress EENT: PERRL, mucous membranes moist Neck: no JVD, no thyromegaly, no carotid bruit, supple Respiratory: Present: Decreased Breath Sounds Cardiology: regular, irregularly irregular, tachycardia, S1S2, no murmurs Gastrointestinal: normoactive bowel sounds, no tenderness, distended Integumentary: no rash, warm and dry Neurologic: no focal deficit, alert and oriented x3, reflexes 2+ and symmetric, gait normal, strength 5/5 Musculoskeletal: other (No edema, clubbing ) Psychiatric: mood/affect appropriate, cooperative - Vital Signs Vital signs: Vital Signs - 12hr 10/22/16 10/22/16 10/22/16 00:00 05:50 08:00 Temperature 97.6 F 97.6 F 97.7 F Pulse Rate Pulse Rate [ 68 65 104 H Right] Respiratory 19 20 20 Rate Blood Pressure Blood Pressure 89/61 82/56 [Right Arm] O2 Sat by Pulse 95 97 98 Oximetry 10/22/16 10/22/16 10/22/16 09:07 09:29 11:00 Temperature 97.7 F Pulse Rate 106 H 84 Pulse Rate [ 106 H Right] Respiratory 18 Rate Blood Pressure 88/72 Blood Pressure 84/60 [Right Arm] O2 Sat by Pulse Oximetry 10/22/16 10/22/16 11:15 11:30 Temperature Pulse Rate 72 100 H Pulse Rate [ Right] Respiratory Rate Blood Pressure 127/86 86/63 Blood Pressure [Right Arm] O2 Sat by Pulse Oximetry - Lab 10/22/16 04:42 10/22/16 04:42 Most recent lab results Calcium 8.4 mg/dL (8.4-10.2) 10/22/16 04:42
[2016-10-22] MEDS: HEPARIN IV PRN (14:40)
[2016-10-22 14:53] VITALS: BP 100/70
--- NOTE | 2016-10-22 15:38 | Progress Note ---
<CLARISA TRISTAN - Last Filed: 10/22/16 15:40> Assessment and Plan Assessment and Plan Assessment: Paroxysmal atrial flutter / atrial fibrillation - currently with slightly increased VR,B.P on low side,hold Amlodopine and continue Metoprolol,discussed with . Chronic systolic heart failure 30-35% NICMP H/o HTN - currently with hypotension. ESRD on HD Noncompliance with medication regimen Plan: Cont Lopressor, 25mg PO TID. Hold for HR <60 and SBP <100. S/p colonoscopy yesterday which revealed large internal hemorrhoids. May resume Eliquis per GI. Will resume. Currently stable cardiac status. Pt may discharge home from cardiology standpoint. Subjective Date of service: 10/22/16 Principal diagnosis: sob Interval history: Patient is comfortable,no particular complaints,had dialysis done. Telemetry showed atrial fib/flutteraround 100-110/mt. Objective Vital Signs Temp Pulse Pulse Resp BP BP Pulse Ox 10/22/16 14:45 97.3 F L 112 H 18 100/70 10/22/16 14:30 55 L 103/77 10/22/16 14:15 101 H 93/73 10/22/16 14:00 100 H 103/71 10/22/16 13:45 103 H 108/76 10/22/16 13:30 103 H 88/56 10/22/16 13:15 56 L 88/58 10/22/16 13:00 98 H 106/78 10/22/16 12:45 114 H 100/76 10/22/16 12:30 49 L 90/71 10/22/16 12:15 107 H 92/73 10/22/16 12:00 53 L 88/71 10/22/16 11:45 69 96/66 10/22/16 11:30 100 H 86/63 10/22/16 11:15 72 127/86 10/22/16 11:00 97.7 F 84 18 88/72 10/22/16 10:00 106 H 10/22/16 09:29 106 H 10/22/16 09:07 106 H 84/60 10/22/16 08:00 97.7 F 104 H 20 98 10/22/16 05:50 97.6 F 65 20 82/56 97 10/22/16 00:00 97.6 F 68 19 89/61 95 10/21/16 22:32 90 10/21/16 20:17 55 L 73/59 10/21/16 20:10 18 90 10/21/16 19:56 98.9 F 55 L 19 79/53 90 10/21/16 17:06 97.9 F 60 16 102/66 97 - Physical Examination General: No Apparent Distress HEENT: Positive: PERRL, Normocephaly, Mucus Membranes Moist Neck: Positive: neck supple, trachea midline Cardiac: Positive: irregularly irregular Lungs: Positive: clear to auscultation Neuro: Positive: Grossly Intact, Cranial Nerve 2-12 Intact Abdomen: Positive: Unremarkable, Soft, Active Bowel Sounds. Negative: Tender Skin: Positive: Clear. Negative: Rash, Wound Musculoskeletal: No Fluid Collection, No Pain, Normal Range of Motion Extremities: Present: normal, upper extr. pulses, lower extr. pulses. Absent: edema - Labs and Meds Cardiac Enzymes 10/22/16 Range/Units 04:42 AST 101 H (5-40) units/L CBC 10/22/16 Range/Units 04:42 WBC 5.0 (4.5-11.0) K/mm3 RBC 4.32 (3.65-5.03) M/mm3 Hgb 12.6 (11.8-15.2) gm/dl Hct 39.5 (35.5-45.6) % Plt Count 150 (140-440) K/mm3 Lymph # 0.8 L (1.2-5.4) K/mm3 Posey # 0.6 (0.0-0.8) K/mm3 Eos # 0.1 (0.0-0.4) K/mm3 Baso # 0.0 (0.0-0.1) K/mm3 Comprehensive Metabolic Panel 10/22/16 Range/Units 04:42 Sodium 134 L (137-145) mmol/L Potassium 4.2 D (3.6-5.0) mmol/L Chloride 92.5 L (98-107) mmol/L Carbon Dioxide 24 (22-30) mmol/L BUN 69 H (9-20) mg/dL Creatinine 8.9 H (0.8-1.5) mg/dL Glucose 132 H (75-100) mg/dL Calcium 8.4 (8.4-10.2) mg/dL AST 101 H (5-40) units/L ALT 134 H (7-56) units/L Alkaline Phosphatase 81 (35-129) units/L Total Protein 5.6 L (6.3-8.2) g/dL Albumin 2.6 L (3.9-5) g/dL - Imaging and Cardiology EKG: report reviewed, image reviewed Echo: report reviewed (ef 30% moderate to severe mr) <FÉLIX CATES - Last Filed: 10/22/16 15:45> Assessment and Plan This note is done by Objective Vital Signs Temp Pulse Pulse Resp BP BP Pulse Ox 10/22/16 14:45 97.3 F L 112 H 18 100/70 10/22/16 14:30 55 L 103/77 10/22/16 14:15 101 H 93/73 10/22/16 14:00 100 H 103/71 10/22/16 13:45 103 H 108/76 10/22/16 13:30 103 H 88/56 10/22/16 13:15 56 L 88/58 10/22/16 13:00 98 H 106/78 10/22/16 12:45 114 H 100/76 10/22/16 12:30 49 L 90/71 10/22/16 12:15 107 H 92/73 10/22/16 12:00 53 L 88/71 10/22/16 11:45 69 96/66 10/22/16 11:30 100 H 86/63 10/22/16 11:15 72 127/86 10/22/16 11:00 97.7 F 84 18 88/72 10/22/16 10:00 106 H 10/22/16 09:29 106 H 10/22/16 09:07 106 H 84/60 10/22/16 08:00 97.7 F 104 H 20 98 10/22/16 05:50 97.6 F 65 20 82/56 97 10/22/16 00:00 97.6 F 68 19 89/61 95 10/21/16 22:32 90 10/21/16 20:17 55 L 73/59 10/21/16 20:10 18 90 10/21/16 19:56 98.9 F 55 L 19 79/53 90 04/25/17 17:06 97.9 F 60 16 102/66 97 - Labs and Meds Cardiac Enzymes 10/22/16 Range/Units 04:42 AST 101 H (5-40) units/L CBC 10/22/16 Range/Units 04:42 WBC 5.0 (4.5-11.0) K/mm3 RBC 4.32 (3.65-5.03) M/mm3 Hgb 12.6 (11.8-15.2) gm/dl Hct 39.5 (35.5-45.6) % Plt Count 150 (140-440) K/mm3 Lymph # 0.8 L (1.2-5.4) K/mm3 Posey # 0.6 (0.0-0.8) K/mm3 Eos # 0.1 (0.0-0.4) K/mm3 Baso # 0.0 (0.0-0.1) K/mm3 Comprehensive Metabolic Panel 10/22/16 Range/Units 04:42 Sodium 134 L (137-145) mmol/L Potassium 4.2 D (3.6-5.0) mmol/L Chloride 92.5 L (98-107) mmol/L Carbon Dioxide 24 (22-30) mmol/L BUN 69 H (9-20) mg/dL Creatinine 8.9 H (0.8-1.5) mg/dL Glucose 132 H (75-100) mg/dL Calcium 8.4 (8.4-10.2) mg/dL AST 101 H (5-40) units/L ALT 134 H (7-56) units/L Alkaline Phosphatase 81 (35-129) units/L Total Protein 5.6 L (6.3-8.2) g/dL Albumin 2.6 L (3.9-5) g/dL
== END 2016-10-22 18:45 | disposition home or self-care (01) | DRG 291 ==
LOC: ED 05:00 → 4A 09:58
PROVIDERS: ADMIT Internal Medicine; ATTEND Family Medicine
PROC: 0DJD8ZZ Inspection of Lower Intestinal Tract, Via Natural or Artificial Opening Endoscopic (ICD-10-PCS; principal; 2016-10-20)
PROC: 5A1D60Z (ICD-10-PCS; 2016-10-22)
DX: I13.2 Hypertensive heart and chronic kidney disease with heart failure and with stage 5 chronic kidney disease, or end stage renal disease (principal); I50.23 Acute on chronic systolic (congestive) heart failure; N18.6 End stage renal disease; Z79.01 Long term (current) use of anticoagulants; E87.5 Hyperkalemia; I48.0 Paroxysmal atrial fibrillation; I42.9 Cardiomyopathy, unspecified; B18.2 Chronic viral hepatitis C; R18.8 Other ascites; K64.8 Other hemorrhoids; I48.92 Unspecified atrial flutter; K92.2 Gastrointestinal hemorrhage, unspecified; E78.5 Hyperlipidemia, unspecified; E78.00 Pure hypercholesterolemia, unspecified; D64.9 Anemia, unspecified; Z99.2 Dependence on renal dialysis; Z91.15 Patient's noncompliance with renal dialysis; Z88.8 Allergy status to other drugs, medicaments and biological substances; Z79.899 Other long term (current) drug therapy; Z91.14 Patient's other noncompliance with medication regimen; Z71.89 Other specified counseling
CPT/HCPCS: 36415; 71020; 74020; 76700; 80048; 80053; 82270; 83690; 83880; 85025; 85610; 85730; 86850; 86900; 86901; 93005; 93010; 94640; 96374; 96375; J0282; J1644; J2405; J2704; J7030; J7060

== ENCOUNTER 2016-11-18 12:11 | Day surgery (SDC) | payer MEDICAID ==
[~2016-11-18 12:11] MED LIST: ANCEF/STERILE WATER 2 GM/20 ML 2 GM/20 ML SYRINGE IV NR; HEPARIN 10,000 UNITS/10 ML ONE; MARCAINE 0.5% INFILTRATI ONE; NACL 0.9% 1000 ML 1,000 ML IV SCH; NACL 0.9% 500 ML 500 ML ONE; XYLOCAINE 1%/ EPI 1:100,000 INFILTRATI ONE
[2016-11-18] MEDS ORDERED: DIPRIVAN 10 MG/ML IV ONE ×2 (12:58→14:20)
[2016-11-18] MEDS ORDERED: SUBLIMAZE ONE (12:58)
[2016-11-18] MEDS ORDERED: XYLOCAINE MPF 2% ONE (12:58)
--- NOTE | 2016-11-18 13:31 | Anesthesia Day of Surgery ---
Anesthesia Day of Surgery - Day of Surgery Patient Examined: Yes Patient H&P Reviewed: Yes Patient is NPO: Yes
--- NOTE | 2016-11-18 13:31 | Anesthesia Consultation ---
Anesthesia Consult and Med Hx Date of service: 11/18/16 - Airway Anesthetic Teeth Evaluation: Poor ROM Head & Neck: Adequate Mental/Hyoid Distance: Adequate Mallampati Class: Class II Intubation Access Assessment: Probably Good - Pulmonary Exam CTA: Yes - Cardiac Exam Cardiac Exam: RRR - Pre-Operative Health Status ASA Pre-Surgery Classification: ASA3 Proposed Anesthetic Plan: General - Pulmonary Hx Smoking: No Hx Sleep Apnea: No - Cardiovascular System Hx Hypertension: Yes Hx Cardia Arrhythmia: Yes (AF) - Central Nervous System Hx Psychiatric Problems: No - Endocrine Hx End Stage Renal Disease: Yes - Hematic Hx Anemia: Yes - Other Systems Hx Substance Use: Yes (Stopped using cocaine IN 1999) Hx Cancer: No
[2016-11-18] MEDS ORDERED: ePHEDrine SULFATE ONE (13:52)
[2016-11-18] MEDS ORDERED: DECADRON ONE (14:00)
[2016-11-18] MEDS ORDERED: NEO SYNEPHRINE ONE (14:20)
[2016-11-18] MEDS ORDERED: NACL 0.9% IR ONE (14:25)
[2016-11-18] MEDS ORDERED: HEPARIN 10,000 UNITS/10 ML IV ONE (14:25)
[2016-11-18] MEDS ORDERED: MARCAINE 0.5% INFILTRATI ONE (14:25)
[2016-11-18] MEDS ORDERED: NACL 0.9% 500 ML IRRIGATION ONE (14:26)
[2016-11-18] MEDS ORDERED: ADRENALIN ONE (14:30)
--- NOTE | 2016-11-18 15:25 | Short Stay Summary ---
Short Stay Documentation Date of service: 11/18/16 Narrative H&P: See H&P - History H&P: obtained from office - Allergies and Medications Current Medications: Allergies hydralazine Allergy (Verified 08/07/16 09:21) Unknown Home Medications Medication Instructions Recorded Confirmed Last Taken Type Cinacalcet [Sensipar] 30 mg PO QDAY 09/23/16 11/18/16 11/17/16 09:00 History Ondansetron [Zofran TAB] 4 mg PO Q8HR PRN 09/23/16 11/11/16 3 Weeks Ago History Apixaban [Eliquis] 2.5 mg PO QDAY #30 tablet 10/22/16 11/18/16 11/17/16 09:00 Rx Losartan [Cozaar] 50 mg PO QDAY #30 tablet 10/22/16 11/18/16 11/17/16 09:00 Rx Diltiazem Cd [Cardizem Cd] 240 mg PO QDAY 11/11/16 11/18/16 11/17/16 09:00 History Multivit-Min/FA/Lycopen/Lutein 1 each PO QDAY 11/11/16 11/18/16 11/17/16 09:00 History [Men 50 Plus Multivitamin Tab] amLODIPine [Norvasc] 10 mg PO DAILY 11/11/16 11/18/16 11/17/16 09:00 History Active Medications Cefazolin Sodium (Ancef/Sterile Water 2 Gm/20 Ml) 2 gm in 20 mls @ 80 mls/hr IV PREOP NR PRN Reason: Protocol Stop: 11/18/16 23:59 Sodium Chloride (Nacl 0.9% 1000 Ml) 1,000 mls @ 42 mls/hr IV DIRECT EMBER Last Admin: 11/18/16 13:00 Dose: 42 mls/hr - Brief post op/procedure progress note Date of procedure: 11/18/16 Pre-op diagnosis: end-stage renal disease Post-op diagnosis: same Procedure: Creation of left brachial basilic arteriovenous fistula Anesthesia: JAIMEA Surgeon: DENIS NINO Estimated blood loss: minimal Pathology: none Condition: stable - Disposition Condition at discharge: Good Disposition: DISCHARGED TO HOME OR SELFCARE Short Stay Discharge Plan Activity: other (no heavy lifting with left arm) Wound: open to air, keep clean and dry, other (okay to wash the wound with soap and water but do not soak in water) Follow up with: DENIS NINO MD [Staff Physician] - 14 Days Prescriptions: HYDROcodone/APAP 7.5-325 [[place] 7.5/325] 1 each PO Q6HR PRN #60 tablet PRN Reason: Pain
[2016-11-18] MEDS ORDERED: DILAUDID ONE (15:47)
[2016-11-18] MEDS ORDERED: DILAUDID IV PRN (15:51)
[2016-11-18 16:18] VITALS: BP 112/85
--- NOTE | 2016-11-18 16:30 | Operative Report ---
Operative Report Operative Report: Date of procedure: 11/18/2016 Pre-operative diagnosis: End-stage Renal Disease Post-operative diagnosis: End-stage Renal Disease Procedure(s): Creation of Left Brachial Artery to Basilic Arteriovenous Fistula Surgeon: Eris Posadas MD Grill Cook: None Anesthesia: Gen. endotracheal anesthesia EBL: Minimal Counts: Correct Complications: None Condition: Stable Findings: Successful creation of left brachial basilic arteriovenous fistula with palpable thrill at the completion of the case Specimen: None Indication: The patient is a 61-year-old male with history of end-stage renal disease who was in need of long-term access. His vein mapping demonstrated he had a vein adequate for creation of AV fistula. He was given the risks, benefits, and alternative procedures and consented to procedure. Description of Procedure: The patient was brought to the operating room and laid in supine position after general endotracheal anesthesia was administered the patient was prepped and draped in normal sterile fashion. After anesthetizing the skin a transverse incision was created just below the antecubital crease. Dissection was carried down to the the basilic vein using sharp dissection. The vein was dissected out both proximally and distally and suture ligated and divided distally. I then ran a 3 Krystal proximally in the vein, to ensure patency of the vein. I then flushed the vein with heparinized saline and controlled flow with a bulldog clamp. I then dissected out the brachial artery through this incision circumferentially both proximal and distal and controlled th artery with vessel loops. I placed the vessel loops on tension, controlling the flow through the artery, and created an arteriotomy using an 11 blade and [place] scissors. I created an end to side anastomosis between the basilic vein and brachial artery using a 6-0 Prolene in running fashion. Prior to completing the anastomosis I flushed the artery both proximally and distally and then advanced a 3 Krystal proximally to break the spasm in the artery. I completed the anastomosis and removed all vessel loops allowing flow into the fistula which had an excellent thrill. I achieved hemostasis with a combination of direct pressure and electrocautery. Once hemostasis was achieved I anesthetized the wound with Marcaine. I closed the wound in 2 layers using 3-0 Vicryl in a running fashion to close the deep dermal layer and 4-0 Monocryl in a running fashion in the subcuticular layer. I dressed the wound with Surgicel. The patient tolerated the procedure well, all sponge needle and instrument counts were correct. The patient was taken to recovery in stable condition.
[2016-11-18] MEDS ORDERED: NORCO PO ONE (17:43)
[2016-11-18] MEDS ORDERED: NORCO ONE (17:45)
== END 2016-11-18 18:26 | disposition home or self-care (01) ==
LOC: OR 12:11
PROVIDERS: ATTEND Surgery Vascular Surgery
DX: I13.2 Hypertensive heart and chronic kidney disease with heart failure and with stage 5 chronic kidney disease, or end stage renal disease (principal); I50.9 Heart failure, unspecified; N18.6 End stage renal disease; I25.10 Atherosclerotic heart disease of native coronary artery without angina pectoris; I48.91 Unspecified atrial fibrillation; I25.2 Old myocardial infarction; D64.9 Anemia, unspecified; B18.2 Chronic viral hepatitis C; F14.21 Cocaine dependence, in remission; Z79.899 Other long term (current) drug therapy; Z99.2 Dependence on renal dialysis; Z98.890 Other specified postprocedural states; Z83.3 Family history of diabetes mellitus; Z82.49 Family history of ischemic heart disease and other diseases of the circulatory system; Z80.9 Family history of malignant neoplasm, unspecified
CPT/HCPCS: 36415; 36821; 84132; C1757; J0171; J0690; J1100; J1170; J1644; J2370; J2704; J3010; J7030; J7040

== ENCOUNTER 2016-12-12 08:14 | Day surgery (SDC) | payer MEDICAID ==
[~2016-12-12 08:14] MED LIST changes: -HEPARIN 10,000 UNITS/10 ML ONE; -MARCAINE 0.5% INFILTRATI ONE; -NACL 0.9% 500 ML 500 ML ONE; +PEPCID PO NR; +VERSED IV NR; -XYLOCAINE 1%/ EPI 1:100,000 INFILTRATI ONE
[2016-12-12 09:18] LABS: Basophils % (Auto) 0.6 % (0.0-1.8); Eosinophils % (Auto) 0.7 % (0.0-4.3); Hematocrit 37.5 % (35.5-45.6); Mean Corpuscular HGB Conc 32 % (32-34); Mean Corpuscular Hemoglobin 29 pg (28-32); Mean Corpuscular Volume 92 fl (84-94); Platelet Count 190 K/mm3 (140-440); Red Blood Count 4.09 M/mm3 (3.65-5.03); Red Cell Distribution Width 17.9 % (13.2-15.2); White Blood Count 5.3 K/mm3 (4.5-11.0)
[2016-12-12 09:36] LABS: INR 1.4 (0.87-1.13)
[2016-12-12 10:00] LABS: BUN/Creatinine Ratio 3.57; Calcium 10.4 mg/dL (8.4-10.2); Chloride 98.3 mmol/L (98-107); Potassium 4.1 mmol/L (3.6-5.0)
[2016-12-12] MEDS ORDERED: HEPARIN 10,000 UNITS/10 ML ONE (10:05)
[2016-12-12] MEDS ORDERED: MARCAINE 0.5% INFILTRATI ONE ×2 (10:06→11:30)
[2016-12-12] MEDS ORDERED: DILAUDID IV PRN (10:07)
[2016-12-12] MEDS ORDERED: NACL 0.9% 500 ML 500 ML ONE (10:07)
--- NOTE | 2016-12-12 10:07 | Anesthesia Day of Surgery ---
Anesthesia Day of Surgery - Day of Surgery Patient Examined: Yes Patient H&P Reviewed: Yes Patient is NPO: Yes
--- NOTE | 2016-12-12 10:07 | Anesthesia Consultation ---
Anesthesia Consult and Med Hx Date of service: 12/12/16 - Airway Anesthetic Teeth Evaluation: Dentures ROM Head & Neck: Adequate Mental/Hyoid Distance: Adequate Mallampati Class: Class II Intubation Access Assessment: Probably Good - Pulmonary Exam CTA: Yes - Cardiac Exam Cardiac Exam: RRR - Pre-Operative Health Status ASA Pre-Surgery Classification: ASA4 Proposed Anesthetic Plan: General - Pulmonary Hx Smoking: No Hx Asthma: No SOB: Yes Hx Sleep Apnea: No - Cardiovascular System Hx Hypertension: Yes (CHF) Hx Cardia Arrhythmia: Yes (AF) - Central Nervous System Hx Seizures: No CVA: No Hx Psychiatric Problems: No - Endocrine Hx Renal Disease: Yes (HD THURSDAY, RIGHT VASCATH) Hx End Stage Renal Disease: Yes Hx Liver Disease: Yes (HEP C) Hx Non-Insulin Dependent Diabetes: No Hx Thyroid Disease: No - Hematic Hx Anemia: Yes - Other Systems Hx Substance Use: Yes (Stopped using cocaine [place] 1999) Hx Cancer: No
[2016-12-12] MEDS ORDERED: XYLOCAINE 1%/ EPI 1:100,000 INFILTRATI ONE (10:08)
[2016-12-12] MEDS ORDERED: SODIUM BICARBONATE ONE (10:09)
[2016-12-12] MEDS ORDERED: PROTAMINE SULFATE ONE (10:12)
[2016-12-12] MEDS ORDERED: PROVENTIL IH NR (10:15)
[2016-12-12] MEDS ORDERED: ZOFRAN IV PRN (10:30)
[2016-12-12] MEDS ORDERED: XYLOCAINE MPF 2% ONE (10:38)
[2016-12-12] MEDS ORDERED: APRESOLINE ONE (10:38)
[2016-12-12] MEDS ORDERED: AMIDATE IV ONE (10:38)
[2016-12-12] MEDS ORDERED: DIPRIVAN 10 MG/ML IV ONE (10:38)
[2016-12-12] MEDS ORDERED: DILAUDID ONE (10:39)
[2016-12-12] MEDS ORDERED: RIFADIN ONE (11:09)
[2016-12-12] MEDS ORDERED: NACL P/F VIAL (10 ML) 10 ML ONE (11:10)
[2016-12-12] MEDS ORDERED: NEO SYNEPHRINE ONE (11:16)
[2016-12-12] MEDS ORDERED: NACL 0.9% 100 ML ONE (11:16)
[2016-12-12] MEDS ORDERED: NACL 0.9% IR ONE (11:30)
[2016-12-12] MEDS ORDERED: HEPARIN 10,000 UNITS/10 ML 2,000 UNIT in NACL 0.9% 500 ML 500 ML IR ONE (11:31)
[2016-12-12] MEDS ORDERED: RIFADIN 600 MG in NACL 0.9% 50 ML IR ONE (11:31)
--- NOTE | 2016-12-12 12:04 | Short Stay Summary ---
Short Stay Documentation Date of service: 12/12/16 Narrative H&P: See H&P - Allergies and Medications Current Medications: Allergies hydralazine Allergy (Verified 12/05/16 09:16) Itching Home Medications Medication Instructions Recorded Confirmed Last Taken Type Cinacalcet [Sensipar] 30 mg PO QDAY 09/23/16 12/05/16 12/11/16 22:30 History Ondansetron [Zofran TAB] 4 mg PO Q8HR PRN 09/23/16 12/05/16 12/11/16 22:30 History Apixaban [Eliquis] 2.5 mg PO QDAY #30 tablet 10/22/16 12/05/16 12/11/16 22:30 Rx Losartan [Cozaar] 50 mg PO QDAY #30 tablet 10/22/16 12/05/16 12/11/16 22:30 Rx Diltiazem Cd [Cardizem CD] 240 mg PO QDAY 11/11/16 12/05/16 12/11/16 22:30 History Multivit-Min/FA/Lycopen/Lutein 1 each PO QDAY 11/11/16 12/12/16 12/10/16 History [Men 50 Plus Multivitamin Tab] amLODIPine [Norvasc] 10 mg PO DAILY 11/11/16 12/05/16 12/11/16 22:30 History HYDROcodone/APAP 7.5-325 [[place] 1 each PO Q6HR PRN #60 tablet 11/18/16 12/12/16 12/11/16 Rx 7.5/325] Active Medications Famotidine (Pepcid) 20 mg PO PREOP NR Stop: 12/12/16 15:00 Last Admin: 12/12/16 09:21 Dose: 20 mg Hydromorphone HCl (Dilaudid) 0.25 mg IV Q10MIN PRN PRN Reason: Pain, Moderate (4-6) Stop: 12/12/16 12:00 Cefazolin Sodium (Ancef/Sterile Water 2 Gm/20 Ml) 2 gm in 20 mls @ 80 mls/hr IV PREOP NR PRN Reason: Protocol Stop: 12/12/16 23:49 Sodium Chloride (Nacl 0.9% 1000 Ml) 1,000 mls @ 42 mls/hr IV DIRECT EMBER Last Admin: 12/12/16 09:22 Dose: 42 mls/hr - Brief post op/procedure progress note Date of procedure: 12/12/16 Pre-op diagnosis: ESRD Post-op diagnosis: same Procedure: Creation of Left Arm AVG with 7 mm Bovine Graft Anesthesia: GARY Surgeon: DENIS NINO Estimated blood loss: minimal Pathology: none Condition: stable - Disposition Condition at discharge: Good Disposition: DC-01 TO HOME OR SELFCARE Short Stay Discharge Plan Activity: other (No heavy lifting with Left Arm) Wound: open to air, keep clean and dry, other (Okay to wash the wound with soap and water but do not soak in water) Follow up with: DENIS NINO MD [Staff Physician] - 14 Days Prescriptions: HYDROcodone/APAP 7.5-325 [[place] 7.5/325] 1 each PO Q6HR PRN #60 tablet PRN Reason: Pain
--- NOTE | 2016-12-12 12:05 | Operative Report ---
Operative Report Operative Report: Date of procedure: 12/12/2016 Pre-operative diagnosis: End-stage renal disease Post-operative diagnosis: Same Procedure(s): 1. Creation of Left Brachial Artery to Axillary Vein AV Graft with 7 mm Bovine Graft Surgeon: Eris Posadas MD Check Writer: None Anesthesia: General Endotracheal Anesthesia EBL: Minimal Counts: Correct Complications: None Condition: Stable Findings: Successful Creation of Left Arm AV Graft Specimen: None Indication: The patient is a 59-year-old male with history of end-stage renal disease currently on hemodialysis through a permacath. He had creation of a left arm AV fistula that failed and now is in need of an AV graft. He was given the risks, benefits, and alternative procedures and consented to procedure. Description of Procedure: The patient was brought to the operating room and laid in supine position after general endotracheal anesthesia was achieved the left arm was prepped and draped in normal sterile fashion. A longitudinal incision was made on the medial aspect of the arm just proximal to the antecubital crease and carried down to the brachial artery using sharp dissection. The brachial artery was dissected out circumferentially both proximally and distally and controlled with vessel loops. A second incision was created in longitudinal fashion on the medial aspect of the arm just distal to the axillary crease and carried down to the axillary vein using sharp dissection. Axillary vein was dissected out circumferentially and controlled with a vessel loop. I then used a Maida- Wick tunneler to tunnel from the brachial artery incision to the axillary vein incision and then put an 7 mm bovine through the tunnel. I infused with heparinized saline to ensure that it was not twisted or kinked. I put the brachial artery vessel loops on tension controlling the flow and then created an arteriotomy using an 11 blade and [place] scissors. I beveled the graft and created an end-to-side anastomosis using 6-0 Prolene running fashion. I clamped the graft just proximal to the anastomosis and then released the vessel loops restoring flow in the brachial artery. I placed quick clot in incision to achieve hemostasis. I cut the proximal end of the graft to the appropriate length and beveled the graft in preparation for a venous anastomosis. I controlled the axillary vein a Satinsky clamp and created a venotomy using an 11 blade and [place] scissors. I created an end to side anastomosis using a 6-0 Prolene in running fashion. Prior to completing the anastomosis I flushed the graft to ensure there was no thrombus and then completed the anastamosis. I released all clamps allowing flow into the AV graft which had an excellent thrill. I packed the wound with quick clot to achieve hemostasis. I anesthetized both wounds with Marcaine and then closed both wounds in 2 layers using 3-0 Vicryl in running fashion in the deep dermal layer and 4-0 Monocryl in running fashion the subcuticular layer. I dressed both wounds with Surgicel. The patient tolerated the procedure well all sponge needle and instrument counts were correct the patient was taken to recovery in stable condition.
--- NOTE | 2016-12-12 15:17 | Post Anesthesia Evaluation ---
- Post Anesthesia Evaluation Patient Participated: Yes Airway Patent: Yes Stable Respiratory Function: Yes Nausea/Vomiting: No Temp > 96.8F: Yes Pain Manageable: Yes Adequeate Hydration: Yes Anesthesia Complications: No Block Receding Appropriately: Not Applicable Patient on Ventilator: No
[2016-12-12 15:19] VITALS: BP 92/65
== END 2016-12-12 15:43 | disposition home or self-care (01) ==
LOC: OR 08:14
PROVIDERS: ATTEND Surgery Vascular Surgery
DX: I13.2 Hypertensive heart and chronic kidney disease with heart failure and with stage 5 chronic kidney disease, or end stage renal disease (principal); N18.6 End stage renal disease; I50.9 Heart failure, unspecified; I25.10 Atherosclerotic heart disease of native coronary artery without angina pectoris; B18.2 Chronic viral hepatitis C; I48.91 Unspecified atrial fibrillation; D64.9 Anemia, unspecified; F14.21 Cocaine dependence, in remission; Z99.2 Dependence on renal dialysis; Z88.8 Allergy status to other drugs, medicaments and biological substances; Z79.899 Other long term (current) drug therapy; Z98.890 Other specified postprocedural states; Z80.9 Family history of malignant neoplasm, unspecified; Z83.3 Family history of diabetes mellitus; Z82.49 Family history of ischemic heart disease and other diseases of the circulatory system
CPT/HCPCS: 36415; 36830; 80048; 85025; 85610; C1768; J0690; J1170; J1644; J2370; J2704; J3490; J7030; J7040; J0360; J2250; J2720

== ENCOUNTER 2017-01-06 12:43 | Outpatient (CLI) | payer MEDICAID ==
--- NOTE | 2017-01-07 10:33 | Vascular Lab Report ---
FISTULA DUPLEX EXAM: REASON FOR EXAM: AVF malfunction with ESRD. NOTE: THE FISTULA IS LOCATED IN THE LEFT UPPER EXTREMITY. COMMENTS ON THE FISTULA: This is a brachial artery inflow to axillary vein outlflow graft. Morphologicaly, there is large hematoma over the graft. There is elevated velocity at the arterial anastomosis COMMENTS ON THE INFLOW: The inflow velocity is 6 65 cm/s which is elevated. The brachial artery is 1 97 cm/s which is adequate. COMMENTS ON THE OUTFLOW: The venous outflow is one 78 cm/s which is adequate. The volume is 1275 mL per minute mL/min which is optimal. IMPRESSION: No evidence of focal stenosis. The volume passing through the fistula is adequate. Hematoma noted over the graft.
== END 2017-01-06 12:44 | disposition home or self-care (01) ==
LOC: VAS 12:43
PROVIDERS: ATTEND Surgery Vascular Surgery
DX: I13.2 Hypertensive heart and chronic kidney disease with heart failure and with stage 5 chronic kidney disease, or end stage renal disease (principal); N18.6 End stage renal disease; I50.9 Heart failure, unspecified; T82.591A Other mechanical complication of surgically created arteriovenous shunt, initial encounter; R22.32 Localized swelling, mass and lump, left upper limb; E78.00 Pure hypercholesterolemia, unspecified; I48.91 Unspecified atrial fibrillation; D64.9 Anemia, unspecified
CPT/HCPCS: 93990

== ENCOUNTER 2017-01-15 16:00 | Emergency (ER) | payer MEDICAID ==
[2017-01-15 16:21] VITALS: BP 100/56
[2017-01-15 16:50] LABS: Basophils % (Auto) 0.9 % (0.0-1.8); Eosinophils % (Auto) 2.1 % (0.0-4.3); Hematocrit 39.4 % (35.5-45.6); Hemoglobin 12.7 gm/dl (11.8-15.2); Mean Corpuscular HGB Conc 32 % (32-34); Mean Corpuscular Hemoglobin 31 pg (28-32); Mean Corpuscular Volume 95 fl (84-94); Platelet Count 180 K/mm3 (140-440); Red Blood Count 4.16 M/mm3 (3.65-5.03); Red Cell Distribution Width 19.8 % (13.2-15.2); White Blood Count 4.9 K/mm3 (4.5-11.0)
[2017-01-15 17:54] LABS: BUN/Creatinine Ratio 4.11; Calcium 9.3 mg/dL (8.4-10.2); Chloride 96.1 mmol/L (98-107); Potassium 3.7 mmol/L (3.6-5.0)
== END 2017-01-15 20:00 | disposition left against medical advice (07) ==
LOC: ED 16:00
DX: R00.0 Tachycardia, unspecified (principal); Z53.21 Procedure and treatment not carried out due to patient leaving prior to being seen by health care provider
CPT/HCPCS: 36415; 80048; 80061; 84484; 85025; 93005; 93010

== ENCOUNTER 2017-01-27 11:09 | Inpatient (IN) | payer MEDICAID ==
--- NOTE | 2017-01-27 11:22 | Emergency Department Report ---
Entered by HEDY FAM, acting as scribe for LEI WEEMS NP. Stated Complaint: SOB Time Seen by Provider: 01/27/17 11:12 - HPI History of Present Illness: Pt is a 61 y.o. male with a PMHx including ESRD on HD (MWF) who presents to the ED for evaluation of intermittent SOB with associated moderate abdominal distension. He reports that his SOB is aggravated with physical activity such as ambulation, but notes that his SOB occasionally occurs even when he is sedentary. He denies abdominal pain or chest pain. Patient last attended dialysis yesterday as scheduled. PT states he was called back after leaving ED 01-15-17 - Review of Systems: Positive for SOB and abdominal distension Negative for abdominal pain or chest pain - Exam Vital Signs: Vital Signs 01/27/17 11:16 Temperature 97.9 F Pulse Rate 75 Respiratory 20 Rate Blood Pressure 105/78 O2 Sat by Pulse 99 Oximetry Physical Exam: Constitutional: Well-nourished, well-developed. NAD. Pulmonary: No crackles or wheezing Abdomen: Soft, non-tender. MSE screening note: Focused history and physical exam performed. Due to findings the following was ordered: Orders placed: EKG, labs, and CXR. ED Disposition for MSE Condition: Stable This documentation as recorded by the scribe,HEDY FAM,accurately reflects the service I personally performed and the decisions made by DANK roberts TRACY M, NP.
[2017-01-27 11:40] LABS: Basophils % (Auto) 1.1 % (0.0-1.8); Eosinophils % (Auto) 1.8 % (0.0-4.3); Hematocrit 40.2 % (35.5-45.6); Mean Corpuscular HGB Conc 32 % (32-34); Mean Corpuscular Hemoglobin 31 pg (28-32); Mean Corpuscular Volume 95 fl (84-94); Platelet Count 178 K/mm3 (140-440); Red Blood Count 4.24 M/mm3 (3.65-5.03); Red Cell Distribution Width 19.1 % (13.2-15.2); White Blood Count 4.6 K/mm3 (4.5-11.0)
[2017-01-27 11:50] LABS: INR 1.18 (0.87-1.13)
[2017-01-27 11:51] LABS: Partial Thromboplastin Time 32.5 Sec. (24.2-36.6)
[2017-01-27 11:59] LABS: Creatine Kinase MB 4.1 ng/mL (0.0-4.0)
[2017-01-27 12:00] LABS: Albumin 4.2 g/dL (3.9-5); Albumin/Globulin Ratio 1.1 %; BUN/Creatinine Ratio 4.4; Chloride 92.5 mmol/L (98-107); Potassium 4.6 mmol/L (3.6-5.0); Total Protein 8.1 g/dL (6.3-8.2)
--- NOTE | 2017-01-27 12:46 | Emergency Department Report ---
ED Palpitations HPI - General Chief Complaint: Dyspnea/Respdistress Stated Complaint: SOB Time Seen by Provider: 01/27/17 11:12 Source: patient Mode of arrival: Ambulatory Limitations: No Limitations - History of Present Illness Initial Comments: 61-year-old male with a past medical history CHF, hypertension, hep C, end- stage renal disease on hemodialysis, A. fib on Eliquis presents to the hospital after receiving a call back. Patient was triaged on January 15 for shortness breath and chest pain and call back for further evaluation due to tachycardia. Patient denies chest pain at this time and states he has shortness of breath with exertion but this is chronic and unchanged. No reports of fever, cough, nausea, vomiting, diaphoresis, or calf tenderness. Patient is compliant with his medications. Very little urine output daily. He received dialysis yesterday. [employer] Salesperson: Dr. Jane Script Reader: Dr. Gomez - Related Data Home Medications Medication Instructions Recorded Confirmed Last Taken Cinacalcet [Sensipar] 30 mg PO QDAY 09/23/16 12/05/16 12/11/16 22:30 Ondansetron [Zofran TAB] 4 mg PO Q8HR PRN 09/23/16 12/05/16 12/11/16 22:30 Diltiazem Cd [Cardizem CD] 240 mg PO QDAY 11/11/16 12/05/16 12/11/16 22:30 Multivit-Min/FA/Lycopen/Lutein 1 each PO QDAY 11/11/16 12/12/16 12/10/16 [Men 50 Plus Multivitamin Tab] amLODIPine [Norvasc] 10 mg PO DAILY 11/11/16 12/05/16 12/11/16 22:30 Previous Rx's Medication Instructions Recorded Last Taken Type Apixaban [Eliquis] 2.5 mg PO QDAY #30 tablet 10/22/16 12/11/16 22:30 Rx Losartan [Cozaar] 50 mg PO QDAY #30 tablet 10/22/16 12/11/16 22:30 Rx HYDROcodone/APAP 7.5-325 [[place] 1 each PO Q6HR PRN #60 tablet 11/18/16 12/11/16 Rx 7.5-325 mg TAB] HYDROcodone/APAP 7.5-325 [[place]ldon 1 each PO Q6HR PRN #60 tablet 12/12/16 Unknown Rx 7.5/325] Oxycodone HCl/Acetaminophen 1 each PO Q6HR PRN #60 tablet 12/12/16 Unknown Rx [Percocet 7.5/325 mg] Allergies Allergy/AdvReac Type Severity Reaction Status Date / Time hydralazine Allergy Itching Verified 01/15/17 16:13 ED Review of Systems ROS: Stated complaint: SOB Other details as noted in HPI Comment: All other systems reviewed and negative Other: Constitutional: No fevers chills Eyes: No eye pain visual changes or discharge ENT: No ear pain or throat pain Neck: Denies pain Respiratory: Denies cough wheezing Cardiovascular: Denies chest pain, palpitations, syncope GI: Denies abdominal pain, nausea, vomiting, diarrhea : Patient has very little/dribbling output per day Musculoskeletal: Denies back pain Skin: Denies rash, lesions, erythema Neurologic: Denies headache, numbness, weakness Psychiatric: Denies suicidal ideation, hallucinations ED Past Medical Hx - Past Medical History Hx Hypertension: Yes (CHF) Hx Congestive Heart Failure: Yes (IN THE PAST) Hx Liver Disease: Yes (HEP C) Hx Renal Disease: Yes (HD THURSDAY, RIGHT VASCATH) Hx Seizures: No Hx Asthma: No Hx HIV: No Additional medical history: ATRIAL FIB. SINUS TACHYCARDIA - Surgical History Additional Surgical History: PD access to left lower abdomen. hernia repair, permacath - Social History Smoking Status: Never Smoker Substance Use Type: None - Medications Home Medications: Home Medications Medication Instructions Recorded Confirmed Last Taken Type Cinacalcet [Sensipar] 30 mg PO QDAY 09/23/16 12/05/16 12/11/16 22:30 History Ondansetron [Zofran TAB] 4 mg PO Q8HR PRN 09/23/16 12/05/16 12/11/16 22:30 History Apixaban [Eliquis] 2.5 mg PO QDAY #30 tablet 10/22/16 12/05/16 12/11/16 22:30 Rx Losartan [Cozaar] 50 mg PO QDAY #30 tablet 10/22/16 12/05/16 12/11/16 22:30 Rx Diltiazem Cd [Cardizem CD] 240 mg PO QDAY 11/11/16 12/05/16 12/11/16 22:30 History Multivit-Min/FA/Lycopen/Lutein 1 each PO QDAY 11/11/16 12/12/16 12/10/16 History [Men 50 Plus Multivitamin Tab] amLODIPine [Norvasc] 10 mg PO DAILY 11/11/16 12/05/16 12/11/16 22:30 History HYDROcodone/APAP 7.5-325 [Sheldon 1 each PO Q6HR PRN #60 tablet 11/18/16 12/12/16 12/11/16 Rx 7.5-325 mg TAB] HYDROcodone/APAP 7.5-325 [[place]on 1 each PO Q6HR PRN #60 tablet 12/12/16 Unknown Rx 7.5/325] Oxycodone HCl/Acetaminophen 1 each PO Q6HR PRN #60 tablet 12/12/16 Unknown Rx [Percocet 7.5/325 mg] ED Physical Exam - General Limitations: No Limitations - Other Other exam information: General: No limitations, patient is alert in no acute distress Head exam: Atraumatic, normocephalic Eyes exam: Normal appearance, pupils equal reactive to light, extraocular movements intact ENT: Moist mucous membrane, normal oropharynx Neck exam: Normal inspection, full range of motion, no meningismus nontender Respiratory exam: no wheezes, rales, crackles. Diminished breath sounds right base Cardiovascular: Regular rhythm, mild tachycardia Abdomen: Soft, nondistended, and nontender, with normal bowel sounds, no rebound, or guarding Extremity: Full range of motion normal inspection no deformity, no calf tenderness or edema Back: Normal Inspection, full range of motion, no tenderness Neurologic: Alert, oriented x3, cranial nerves intact, no motor or sensory deficit Psychiatric: normal affect, normal mood Skin: Warm, dry, intact ED Course Vital Signs 01/27/17 01/27/17 01/27/17 11:16 11:36 11:46 Temperature 97.9 F Pulse Rate 75 105 H 120 H Respiratory 20 17 29 H Rate Blood Pressure 105/78 89/64 O2 Sat by Pulse 99 100 Oximetry - Reevaluation(s) Reevaluation #1: 01/27/17 13:46 Blood pressure is slightly hypotensive And patient remains mildly tachycardic. Pending ibm mainframe developer's recommendation - Consultations Consultation #1: 01/27/17 12:4 case d/w Sandee Kumar with cards, will consult ED Medical Decision Making - Lab Data Result diagrams: 01/27/17 11:28 01/27/17 11:28 Lab Results 01/27/17 01/27/17 01/27/17 Range/Units 11:28 11:28 11:28 WBC 4.6 (4.5-11.0) K/mm3 RBC 4.24 (3.65-5.03) M/mm3 Hgb 13.0 (11.8-15.2) gm/dl Hct 40.2 (35.5-45.6) % MCV 95 H (84-94) fl MCH 31 (28-32) pg MCHC 32 (32-34) % RDW 19.1 H (13.2-15.2) % Plt Count 178 (140-440) K/mm3 Lymph % (Auto) 18.8 (13.4-35.0) % [place] % (Auto) 13.3 H (0.0-7.3) % Eos % (Auto) 1.8 (0.0-4.3) % Baso % (Auto) 1.1 (0.0-1.8) % Lymph # 0.9 L (1.2-5.4) K/mm3 [place] # 0.6 (0.0-0.8) K/mm3 Eos # 0.1 (0.0-0.4) K/mm3 Baso # 0.1 (0.0-0.1) K/mm3 Seg Neutrophils % 65.0 (40.0-70.0) % Seg Neutrophils # 3.0 (1.8-7.7) K/mm3 PT 14.9 (12.2-14.9) Sec. INR 1.18 H (0.87-1.13) APTT 32.5 (24.2-36.6) Sec. Sodium 136 L (137-145) mmol/L Potassium 4.6 (3.6-5.0) mmol/L Chloride 92.5 L (98-107) mmol/L Carbon Dioxide 25 (22-30) mmol/L Anion Gap 23 mmol/L BUN 33 H (9-20) mg/dL Creatinine 7.5 H (0.8-1.5) mg/dL Estimated GFR 9 ml/min BUN/Creatinine Ratio 4.40 % Glucose 108 H (75-100) mg/dL Calcium 9.0 (8.4-10.2) mg/dL Total Bilirubin 1.00 (0.1-1.2) mg/dL AST 29 (5-40) units/L ALT 14 (7-56) units/L Alkaline Phosphatase 73 (35-129) units/L Total Creatine Kinase (55-170) units/L CK-MB (CK-2) (0.0-4.0) ng/mL CK-MB (CK-2) Rel Index (0-4) Troponin T (0.00-0.029) ng/mL NT-Pro-B Natriuret Pep (0-900) pg/mL Total Protein 8.1 (6.3-8.2) g/dL Albumin 4.2 (3.9-5) g/dL Albumin/Globulin Ratio 1.1 % Triglycerides (2-149) mg/dL Cholesterol (50-199) mg/dL LDL Cholesterol Direct (50-130) mg/dL HDL Cholesterol (40-59) mg/dL Cholesterol/HDL Ratio % 01/27/17 01/27/17 01/27/17 Range/Units 11:28 11:30 11:39 WBC (4.5-11.0) K/mm3 RBC (3.65-5.03) M/mm3 Hgb (11.8-15.2) gm/dl Hct (35.5-45.6) % MCV (84-94) fl MCH (28-32) pg MCHC (32-34) % RDW (13.2-15.2) % Plt Count (140-440) K/mm3 Lymph % (Auto) (13.4-35.0) % [place] % (Auto) (0.0-7.3) % Eos % (Auto) (0.0-4.3) % Baso % (Auto) (0.0-1.8) % Lymph # (1.2-5.4) K/mm3 [place] # (0.0-0.8) K/mm3 Eos # (0.0-0.4) K/mm3 Baso # (0.0-0.1) K/mm3 Seg Neutrophils % (40.0-70.0) % Seg Neutrophils # (1.8-7.7) K/mm3 PT (12.2-14.9) Sec. INR (0.87-1.13) APTT (24.2-36.6) Sec. Sodium (137-145) mmol/L Potassium (3.6-5.0) mmol/L Chloride (98-107) mmol/L Carbon Dioxide (22-30) mmol/L Anion Gap mmol/L BUN (9-20) mg/dL Creatinine (0.8-1.5) mg/dL Estimated GFR ml/min BUN/Creatinine Ratio % Glucose (75-100) mg/dL Calcium (8.4-10.2) mg/dL Total Bilirubin (0.1-1.2) mg/dL AST (5-40) units/L ALT (7-56) units/L Alkaline Phosphatase (35-129) units/L Total Creatine Kinase 62 (55-170) units/L CK-MB (CK-2) 4.1 H (0.0-4.0) ng/mL CK-MB (CK-2) Rel Index 6.6 H (0-4) Troponin T 0.499 H* (0.00-0.029) ng/mL NT-Pro-B Natriuret Pep 06738 H (0-900) pg/mL Total Protein (6.3-8.2) g/dL Albumin (3.9-5) g/dL Albumin/Globulin Ratio % Triglycerides 103 (2-149) mg/dL Cholesterol 129 (50-199) mg/dL LDL Cholesterol Direct 52 (50-130) mg/dL HDL Cholesterol 57 (40-59) mg/dL Cholesterol/HDL Ratio 2.26 % - EKG Data -: EKG Interpreted by Me (afib 110, lat t wave inv) - EKG Data When compared to previous EKG there are: no significant change (compared to 01/15) - Radiology Data Radiology results: report reviewed (chest x-ray PA and lateral: Mild volume overload, small right pleural effusion) - Medical Decision Making Plan to admit patient to the hospital for management of A. fib RVR. Patient denies chest pain but now troponin is more elevated above baseline compared to previous. Script Reader has been consulted - Differential Diagnosis WA, unstable angina, A. fib with RVR, volume overload Critical Care Time: No Critical care attestation.: If time is entered above; I have spent that time in minutes in the direct care of this critically ill patient, excluding procedure time. ED Disposition Clinical Impression: Atrial fibrillation with RVR, ESRD (end stage renal disease) on dialysis, Anticoagulant long-term use, Elevated troponin, Hypotension, Pleural effusion, right Disposition: OP ADMIT IP TO THIS HOSP Is pt being admited?: Yes Condition: Stable Time of Disposition: 12:46 (Dr Roberts/hosp)
--- NOTE | 2017-01-27 12:49 | XRay Report ---
ROUTINE CHEST, TWO VIEWS: HISTORY: Dyspnea. Mild cardiomegaly, mild vascular congestion and small right pleural effusion are identified. The lungs are clear. No pneumothorax. Right IJ dialysis catheter is unchanged since 10/17/16. IMPRESSION: Mild volume overload.
--- NOTE | 2017-01-27 13:08 | Admit Criteria Form ---
Admission Criteria Documentation: ATRIAL FIBRILLATION Clinical Indications for Admission to Inpatient Care (Place 'X' for any and all applicable criteria): Admission indicated for ANY ONE of the following(1)(2)(3)(4)(5) : [ ]I. Myocardial ischemia [ ]II. Dyspnea or hypoxemia [ ]III. Hemodynamic instability [ ]IV. Heart failure (e.g., pulmonary edema) (7) [ ]V. New-onset (less than 48 hours) atrial fibrillation with high risk for causing complications secondary to comorbidities (eg, symptomatic heart failure ) [ ]. Altered mental status [ ]VII. Syncope [ ]VIII. Patient has implantable cardioverter defibrillator that has fired more than once within past 24hr or needs immediate adjustment of settings that cannot be done other than in inpatient setting. (8) [ ]IX. Suspected accessory pathway (e.g., [id number] syndrome) on ECG [ ]X. Recent systemic thromboembolism (eg, stroke) [ ]XI. Medication toxicity (e.g., digitalis) causing arrhythmia(9) [ ]XII. Underlying medical condition that necessitates inpatient care (e.g., thyrotoxicosis, pneumonia) (10) [ ]XIII. Continuous ECG monitoring is required for condition causing arrhythmia (e.g., severe hyperkalemia, hypokalemia, acid-base disturbance).(11)(12)(13) [ ]XIV. Initiation of antiarrhythmic drug therapy is needed in patient at high risk of adverse effects as indicated by ANY ONE of the following: [ ]a) Significant structural heart disease (e.g., reduced ejection fraction, congenital heart disease, valvular heart disease) [ ]b) Prolonged QT interval [ ]c) Underlying sinus node or atrioventricular conduction disturbances [ ]d) Need for treatment with antiarrhythmic drugs that have significant proarrhythmic potential (e.g., dofetilide, sotalol, procainamide) [ ]e) Patient whose sinus rhythm has never been observed on ECG [ ]XV. Intolerable symptoms despite optimal outpatient treatment [ ]XVI. Elective or urgent cardioversion that cannot be performed on outpatient basis or during observation care. [A] (Use also Atrial Fibrillation: Observation Care ) as appropriate.(14) [X ]XVII.Contraindications and/or Inappropriate clinical situations for Observational Care in patients with Atrial Fibrillation, when ANY ONE of the following is required: [ ]a) Patient with High risk of cardiac embolism (e.g, patients with previous cardiac embolism, LVEF < 40%, age >75 and patients with prosthetic valve) 18 [ ]b) Patient with Moderate risk including DM patient, CAD and patient aged 65-75 18 [X ]c) Patient with any change in cardiac biomarker especially troponin should be managed as high risk in an inpatient setting 19 [ ]d) Physician judgement irrespective of ECG and other diagnostic findings 20 [ ]XVIII.General contraindications and/or Inappropriate clinical situations for Observational Care in patients with Atrial Fibrillation, when ANY ONE of the following is required: [ ]a) Prediction of prolongation of LOS based on ANY ONE of the following may be considered as a contraindication for observational care 2, 3, 4, 5, 6, 7, 8, 9, 10, 11 [ ]i) Age > 65 yrs. [ ]ii) Patient arriving by ambulance [ ]iii) Patient with high acuity [ ]iv) Patient requiring vital sign monitoring [ ]v) Patient on IV medication [ ]b) Systolic blood pressures 180mmHg 3,12 [ ]c) Patient with altered mental status including delirium and other alteration of consciousness3 [ ]d) Patient whose discharge disposition will be to a residential home or rehabilitation home should not be managed in Emergency Department Observation Unit. CMS rule requires 3 days hospital stay before such placement.3,13 [ ]e) Patient with failure to thrive due to broad array of etiologies 3,16,17 [ ]f) Inability to ambulate 3,14 Extended stay beyond goal length of stay may be needed for (1)(25)(26): [ ]a) Unstable comorbidities [ ]b) Persistently uncontrolled atrial fibrillation or other arrhythmias [ ]c) Acute thromboembolic event (e.g., stroke, limb ischemia) [ ]d) Need for inpatient attainment of full anticoagulation The original [email or web address] content created by [email or web address] has been revised. The portions of the content which have been revised are identified through the use of italic text or in bold, and [email or web address] has neither reviewed nor approved the modified material. All other unmodified content is copyright [email or web address]. Please see references footnoted in the original [email or web address] edition 2016 Admission Criteria Met: Yes
--- NOTE | 2017-01-27 13:10 | History and Physical Report ---
History of Present Illness Chief complaint: I cant breathe History of present illness: 61 YO Male with ESRD on HD, CHF, HTN, HCV, Atrial Fib noncompliant with anticoagulation, presents to ED for evaluation. Pt states that he has been experiencing shortness of breath and palpitations for the past 1 day with worsening symptoms over the past 5 hours. Pt denies fever, chills, CP, NVD, syncope, diaphoresis, leg pain, calf pain, prolonged immobility/travel, individual/family history of DVT/PE. Past History Past Medical History: atrial fib, ESRD, heart failure, hepatitis, hypertension Past Surgical History: Other (Premacath, AVF, Peritoneal dialysis catheter) Social history: . denies: smoking, alcohol abuse, prescription drug abuse, IV drug use Family history: diabetes, hypertension Medications and Allergies Allergies Allergy/AdvReac Type Severity Reaction Status Date / Time hydralazine Allergy Itching Verified 01/15/17 16:13 Home Medications Medication Instructions Recorded Confirmed Last Taken Type Cinacalcet [Sensipar] 30 mg PO QDAY 09/23/16 01/27/17 12/11/16 22:30 History Apixaban [Eliquis] 5 mg PO Q12H 01/27/17 01/27/17 Unknown History Diltiazem HCl [Diltiazem ER] 360 mg PO DAILY 01/27/17 01/27/17 01/27/17 History Ipratropium/Albuter (Nf) 2 puff IH QID 01/27/17 01/27/17 Unknown History [Combivent (Nf)] Review of Systems All systems: negative Constitutional: no weight loss Ears, nose, mouth and throat: no ear pain Cardiovascular: no chest pain Respiratory: shortness of breath Gastrointestinal: no abdominal pain Genitourinary Male: no flank pain Rectal: no pain Musculoskeletal: no neck pain Integumentary: no rash Neurological: no head injury Psychiatric: no anxiety Endocrine: no excessive thirst Hematologic/Lymphatic: no easy bruising Allergic/Immunologic: no urticaria Exam - Constitutional Vitals: Temp Pulse Resp BP Pulse Ox 97.9 F 120 H 29 H 89/64 100 01/27/17 11:16 01/27/17 11:46 01/27/17 11:46 01/27/17 11:46 01/27/17 11:46 General appearance: Present: mild distress - EENT Eyes: Present: PERRL ENT: hearing intact, clear oral mucosa - Neck Neck: Present: supple, normal ROM - Respiratory Respiratory effort: normal Respiratory: bilateral: CTA - Cardiovascular Rhythm: regular (tachycardia) Heart Sounds: Present: S1 & S2. Absent: rub, click - Extremities Extremities: pulses symmetrical Extremity abnormal: edema Peripheral Pulses: within normal limits - Abdominal General gastrointestinal: Present: soft, non-tender, non-distended, normal bowel sounds Male genitourinary: Present: normal - Integumentary Integumentary: Present: clear, warm, dry - Musculoskeletal Musculoskeletal: gait normal, strength equal bilaterally - Psychiatric Psychiatric: appropriate mood/affect, intact judgment & insight - Neurologic Neurologic: CNII-XII intact, moves all extremities Results - Labs CBC & Chem 7: 01/27/17 11:28 01/27/17 11:28 Labs: Abnormal lab results 01/27/17 01/27/17 01/27/17 Range/Units 11:28 11:28 11:28 MCV 95 H (84-94) fl RDW 19.1 H (13.2-15.2) % [place] % (Auto) 13.3 H (0.0-7.3) % Lymph # 0.9 L (1.2-5.4) K/mm3 INR 1.18 H (0.87-1.13) Sodium 136 L (137-145) mmol/L Chloride 92.5 L (98-107) mmol/L BUN 33 H (9-20) mg/dL Creatinine 7.5 H (0.8-1.5) mg/dL Glucose 108 H (75-100) mg/dL CK-MB (CK-2) (0.0-4.0) ng/mL CK-MB (CK-2) Rel Index (0-4) Troponin T (0.00-0.029) ng/mL 01/27/17 01/27/17 Range/Units 11:28 11:39 MCV (84-94) fl RDW (13.2-15.2) % [place] % (Auto) (0.0-7.3) % Lymph # (1.2-5.4) K/mm3 INR (0.87-1.13) Sodium (137-145) mmol/L Chloride (98-107) mmol/L BUN (9-20) mg/dL Creatinine (0.8-1.5) mg/dL Glucose (75-100) mg/dL CK-MB (CK-2) 4.1 H (0.0-4.0) ng/mL CK-MB (CK-2) Rel Index 6.6 H (0-4) Troponin T 0.499 H* (0.00-0.029) ng/mL Assessment and Plan - Patient Problems (1) Atrial fibrillation with rapid ventricular response Current Visit: Yes Status: Acute Plan to address problem: Patient currently NSR, Cardiology consulted, supportive care, admit to telemetry , continue rate control. (2) CHF (congestive heart failure) Current Visit: Yes Status: Acute Qualifiers: Congestive heart failure type: C Congestive heart failure chronicity: C Plan to address problem: fluid restriction, afterload reduction, cardiology consulted, monitor uop q shfit, resume home medication, telemetry monitoring (3) ESRD (end stage renal disease) Current Visit: Yes Status: Acute Plan to address problem: Nephrology consulted for dialysis, (4) HCV (hepatitis C virus) Current Visit: Yes Status: Acute Qualifiers: Viral hepatitis chronicity: V Hepatic coma status: H Plan to address problem: Gi consulted, continue current therapy. (5) Psychosis Current Visit: Yes Status: Acute Qualifiers: Psychosis type: P Schizoaffective disorder type: S Schizophrenia type: S Plan to address problem: psych consulted, Pt currently resides at [facility]. (6) DVT prophylaxis Current Visit: Yes Status: Acute
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
[2017-01-27] MEDS ORDERED: TYLENOL PO PRN (14:05)
[2017-01-27] MEDS ORDERED: PROVENTIL IH PRN (14:05)
[2017-01-27] MEDS ORDERED: DULCOLAX PR PRN (14:05)
[2017-01-27] MEDS ORDERED: MILK OF MAGNESIA PO PRN (14:05)
[2017-01-27] MEDS ORDERED: ZOFRAN IV PRN (14:05)
[2017-01-27] MEDS ORDERED: ELIQUIS PO SCH (15:00)
[2017-01-27] MEDS ORDERED: LOPRESSOR PO SCH ×2 (15:00→22:00)
[2017-01-27] MEDS ORDERED: NACL 0.9% 100 ML IV PRN (20:39)
[2017-01-27 22:43] LABS: Creatine Kinase MB 3.7 ng/mL (0.0-4.0)
[2017-01-27] MEDS: ELIQUIS PO SCH (22:54)
[2017-01-28] MEDS ORDERED: CARDIZEM/D5W 100MG/100ML 100 MG/100 ML BAG IV SCH (02:00)
[2017-01-28] MEDS: RESTORIL PO SCH ×2 (02:06→21:48)
[2017-01-28] MEDS: ELIQUIS PO SCH (09:32)
--- NOTE | 2017-01-28 09:51 | Gastroenterology Consultation ---
<LEO LONG - Last Filed: 01/28/17 10:02> History of Present Illness - Reason for Consult Consult date: 01/28/17 HCV Requesting physician: ROSEMARIE BENSON - History of Present Illness Patient is a 61 y/o male who presented to the ER with c/o SOB and palpitations x 1 day. He has a hx of noncompliance. PMH significant for ESRD on HD, CHF, HTN , HCV, and A-fib. Troponin was noted to be elevated. Last echo 09/12 showed EF of 10-15%. This morning pt was sitting in bed. No acute distress noted. Reports being diagnosed with HCV over 10 years ago and has never underwent treatment. He denies alcohol use. Admits to a Hx of recreational drug use, stopped in 1999. Abd is noted to be distended. Pt c/o feeling full but denies abd pain. Denies CP, SOB, fever, wt loss, jaundice, pruritus, N/V, or signs of bleeding. Past History Past Medical History: atrial fib, ESRD, heart failure, hepatitis, hypertension Past Surgical History: Other (Premacath, AVF, Peritoneal dialysis catheter) Social history: . denies: smoking, alcohol abuse, prescription drug abuse, IV drug use Family history: diabetes, hypertension Medications and Allergies Allergies Allergy/AdvReac Type Severity Reaction Status Date / Time hydralazine Allergy Itching Verified 01/15/17 16:13 Home Medications Medication Instructions Recorded Confirmed Last Taken Type Cinacalcet [Sensipar] 30 mg PO QDAY 09/23/16 01/27/17 12/11/16 22:30 History Apixaban [Eliquis] 5 mg PO Q12H 01/27/17 01/27/17 Unknown History Diltiazem HCl [Diltiazem ER] 360 mg PO DAILY 01/27/17 01/27/17 01/27/17 History Ipratropium/Albuter (Nf) 2 puff IH QID 01/27/17 01/27/17 Unknown History [Combivent (Nf)] Active Meds: Active Medications Acetaminophen (Tylenol) 650 mg PO Q4H PRN PRN Reason: Pain MILD(1-3)/Fever >100.5/IQBAL Albuterol (Proventil) 2.5 mg IH Q4HRT PRN PRN Reason: Shortness Of Breath Apixaban (Eliquis) 5 mg PO Q12HR EMBER PRN Reason: Protocol Last Admin: 01/28/17 09:32 Dose: 5 mg Bisacodyl (Dulcolax) 10 mg SD QDAY PRN PRN Reason: Constipation unrelieved by MOM Sodium Chloride (Nacl 0.9%) 100 mls @ 999 mls/hr IV NAOMI PRN PRN Reason: Hypotension Diltiazem HCl (Cardizem/D5w 100mg/100ml) 100 mg in 100 mls @ 5 mls/hr IV TITR EMBER; 5 MG/HR PRN Reason: Protocol Last Admin: 01/28/17 02:06 Dose: 5 mg/hr, 5 mls/hr Magnesium Hydroxide (Milk Of Magnesia) 30 ml PO Q4H PRN PRN Reason: Constipation Ondansetron HCl (Zofran) 4 mg IV Q8H PRN PRN Reason: N/V unrelieved by Reglan Temazepam (Restoril) 15 mg PO QHS [facility] Last Admin: 01/28/17 02:06 Dose: 15 mg Review of Systems - Review of Systems All systems: negative Cardiovascular: palpitations, shortness of breath Gastrointestinal: other (abd distention) Exam - Constitutional Vital Signs: Temp Pulse Resp BP Pulse Ox 98.3 F 108 H 18 95/82 97 01/28/17 04:00 01/28/17 08:00 01/28/17 08:00 01/28/17 08:00 01/28/17 04:00 General appearance: no acute distress - EENT Eyes: PERRL, EOM intact ENT: hearing intact - Neck Neck: supple, normal ROM - Respiratory Respiratory: bilateral: diminished (anterior) - Cardiovascular Rhythm: other (tachycardia) Heart Sounds: Present: S1 & S2 Extremities: No edema - Gastrointestinal General gastrointestinal: Present: non-tender, distended, normal bowel sounds - Neurologic Neurological: alert and oriented x3 - Psychiatric Psychiatric: appropriate mood/affect - Labs CBC & Chem 7: 01/27/17 11:28 01/27/17 11:28 Lab Results: Laboratory Results - last 24 hr 01/27/17 01/27/17 21:39 Unknown Magnesium 2.30 Total Creatine Kinase 50 L CK-MB (CK-2) 3.7 CK-MB (CK-2) Rel Index 7.4 H Troponin T 0.466 H* Assessment and Plan 1. HCV 2.abd distention 3.Acute on chronic systolic heart failure 4.elevated troponin 5.ESRD on HD -afebrile -WBC-WNL -PLt -WNL -AST, ALT, T. richard, Alk phos- WNL -INR 1.18-on Eliquis -pt with abd distention (possible ascites)- etiology most likely 2/2 volume overload due to cardiomyopathy -will order a paracentesis for today -volume optimization per HD-defer to nephrology -pt states a h/o HCV- will order hepatitis panel for confirmation -pt will need to f/u as an outpatient for HVC treatment -will follow <MIRIAN COLEMAN - Last Filed: 01/28/17 12:49> Medications and Allergies Active Meds: Active Medications Acetaminophen (Tylenol) 650 mg PO Q4H PRN PRN Reason: Pain MILD(1-3)/Fever >100.5/IQBAL Albuterol (Proventil) 2.5 mg IH Q4HRT PRN PRN Reason: Shortness Of Breath Bisacodyl (Dulcolax) 10 mg SD QDAY PRN PRN Reason: Constipation unrelieved by MOM Heparin Sodium (Porcine) (Heparin) 5,000 unit IV NAOMI PRN PRN Reason: hemodialysis Sodium Chloride (Nacl 0.9%) 100 mls @ 999 mls/hr IV NAOMI PRN PRN Reason: Hypotension Magnesium Hydroxide (Milk Of Magnesia) 30 ml PO Q4H PRN PRN Reason: Constipation Metoprolol Tartrate (Lopressor) 12.5 mg PO BID [facility] Last Admin: 01/28/17 10:15 Dose: 12.5 mg Ondansetron HCl (Zofran) 4 mg IV Q8H PRN PRN Reason: N/V unrelieved by Reglan Temazepam (Restoril) 15 mg PO QHS [facility] Last Admin: 01/28/17 02:06 Dose: 15 mg Exam - Constitutional Vital Signs: Temp Pulse Resp BP Pulse Ox 97.6 F 116 H 18 126/60 97 01/28/17 10:25 01/28/17 12:30 01/28/17 10:25 01/28/17 12:30 01/28/17 04:00 - Labs CBC & Chem 7: 0801/17 11:28 01/27/17 11:28 Lab Results: Laboratory Results - last 24 hr 01/27/17 01/27/17 01/28/17 21:39 Unknown 10:55 Magnesium 2.30 Total Creatine Kinase 50 L CK-MB (CK-2) 3.7 CK-MB (CK-2) Rel Index 7.4 H Troponin T 0.466 H* Hep Bs Antigen Hepatitis C Antibody Reactive A 01/28/17 10:55 Magnesium Total Creatine Kinase CK-MB (CK-2) CK-MB (CK-2) Rel Index Troponin T Hep Bs Antigen Non-reactive Hepatitis C Antibody Assessment and Plan patient seen and examined in dialysis. agree with note by Leo Long. patient with suspected ascites and h/o hep c. Unclear etiology of ascites as pt as advanced heart failure, ESRD on dialysis, and chronic hep c. Platelets are normal. Recommend diagnostic tap to help determine etiology of ascites ( calculate SAAG, total protein, gram stain/culture). pt will need to f/u in GI clinic after d/c for further management/treatment for hep c.
--- NOTE | 2017-01-28 10:00 | Progress Note ---
Assessment and Plan Assessment: Acute on chronic systolic heart failure Elevated troponin - ECG with no ischemic changes; pt denies chest pain; Madiha flat overnight. Syncope NICMP - EF 10-15% on echo 09/24/2016 Paroxysmal atrial flutter / atrial fibrillation with RVR / sinus tachycardia Ascites / h/o hepatitis C H/o HTN - currently with hypotension. ESRD on HD - followed by Dr. Jane. NSVT Noncompliance with medication regimen Plan: D/c cardizem gtt. Resume Lopressor, 12.5mg PO BID. Give dose now prior to HD. Hold home losartan in setting of borderline hypotension. Cont eliquis, 5mg PO BID. Volume optimization per HD. For paracentesis per GI. May hold Eliquis prior to paracentesis if necessary per GI. Indications, potential risks and benefits of LifeVest reviewed with pt and he is agreeable to wear and is agreeable for OP EP consultation to assess AICD candidacy. Will order LifeVest. Assessment and plan reviewed with pt at bedside. The patient has been seen in conjunction with Dr. Carter who agrees with the assessment and plan of care. Subjective Date of service: 01/28/17 Principal diagnosis: HF; syncope; CMP Interval history: Pt resting comfortably in bed, denies any complaints. PO lopressor was d/c'd and pt was started on cardizem gtt overnight per primary team for AFlutter with HR 115s. Pt has since converted back to SR/ST with HR 110s. Awaiting HD today. Had 7 beat run NSVT on tele this AM - pt asymptomatic. Objective Last Vital Signs Temp 98.3 F 01/28/17 04:00 Pulse 108 H 01/28/17 08:00 Resp 18 01/28/17 08:00 BP 95/82 01/28/17 08:00 Pulse Ox 97 01/28/17 04:00 - Physical Examination General: No Apparent Distress HEENT: Positive: PERRL, Normocephaly, Mucus Membranes Moist Neck: Positive: neck supple, trachea midline Cardiac: Positive: S1/S2, Tachycardia Lungs: Positive: clear to auscultation Neuro: Positive: Grossly Intact, Cranial Nerve 2-12 Intact Abdomen: Positive: Active Bowel Sounds, Ascites, Distended. Negative: Tender Skin: Positive: Clear. Negative: Rash, Wound Musculoskeletal: No Fluid Collection, No Pain, Normal Range of Motion Extremities: Absent: edema - Labs and Meds Cardiac Enzymes 01/27/17 Range/Units 21:39 CK-MB (CK-2) 3.7 (0.0-4.0) ng/mL - Imaging and Cardiology EKG: image reviewed Echo: report reviewed (09/24/2016 showed EF 10-15%, LV mild to moderately dilated , LA severely dilated, RV mild to moderately dilated, RA mild to moderately dilated, severe MR, moderate TR, moderate UT. ) Cardiac cath: report reviewed (Normal coronaries per cath 01/2013) - Telemetry EKG Rhythm: Sinus Tachycardia
[2017-01-28] MEDS: LOPRESSOR PO SCH ×2 (10:15→21:47)
--- NOTE | 2017-01-28 10:18 | Consultation ---
History of Present Illness - Reason for Consult Consult date: 01/28/17 end stage renal disease Requesting physician: KAT SEWELL - History of Present Illness This is a 61 yo AAM, with past medical history of HTN, chronic systolic CHF, HCV , Atrial Fib on anticoagulation with eliquis, ESRD on HD on MWF schedule, who was triaged on January 15 for shortness breath and chest pain, but eloped prior to work up. He was called back for further evaluation for tachycardia. Pt presented to [facility] ER again on 01/27/17, was found to be in atrial fibrillation with RVR, and is now admitted for rate control. CXR showed small right pleural effusion with mild pulmonary vascular congestion and mild cardiomegaly; [place] [address]. Renal consult requested for management of ESRD/HD. Pt's last HD was on Thursday, received full treatment. Pt denies fever, chills, SOB, CP , palpitations, nausea, vomiting, diarrhea, dysuria. However reports MONTALVO, orthopnea, increasing abdominal girth. Past History Past Medical History: atrial fib, ESRD, heart failure, hepatitis, hypertension Past Surgical History: Other (Premacath, AVF, Peritoneal dialysis catheter) Social history: . denies: smoking, alcohol abuse, prescription drug abuse, IV drug use Family history: diabetes, hypertension Medications and Allergies Allergies Allergy/AdvReac Type Severity Reaction Status Date / Time hydralazine Allergy Itching Verified 01/15/17 16:13 Home Medications Medication Instructions Recorded Confirmed Last Taken Type Cinacalcet [Sensipar] 30 mg PO QDAY 09/23/16 01/27/17 12/11/16 22:30 History Apixaban [Eliquis] 5 mg PO Q12H 01/27/17 01/27/17 Unknown History Diltiazem HCl [Diltiazem ER] 360 mg PO DAILY 01/27/17 01/27/17 01/27/17 History Ipratropium/Albuter (Nf) 2 puff IH QID 01/27/17 01/27/17 Unknown History [Combivent (Nf)] Active Meds: Active Medications Acetaminophen (Tylenol) 650 mg PO Q4H PRN PRN Reason: Pain MILD(1-3)/Fever >100.5/IQBAL Albuterol (Proventil) 2.5 mg IH Q4HRT PRN PRN Reason: Shortness Of Breath Apixaban (Eliquis) 5 mg PO Q12HR EMBER PRN Reason: Protocol Last Admin: 01/28/17 09:32 Dose: 5 mg Bisacodyl (Dulcolax) 10 mg [place] QDAY PRN PRN Reason: Constipation unrelieved by MOM Sodium Chloride (Nacl 0.9%) 100 mls @ 999 mls/hr IV NAOMI PRN PRN Reason: Hypotension Magnesium Hydroxide (Milk Of Magnesia) 30 ml PO Q4H PRN PRN Reason: Constipation Metoprolol Tartrate (Lopressor) 12.5 mg PO BID [facility] Last Admin: 01/28/17 10:15 Dose: 12.5 mg Ondansetron HCl (Zofran) 4 mg IV Q8H PRN PRN Reason: N/V unrelieved by Reglan Temazepam (Restoril) 15 mg PO QHS [facility] Last Admin: 01/28/17 02:06 Dose: 15 mg Review of Systems All systems: negative Constitutional: weakness Cardiovascular: lightheadedness, shortness of breath, dyspnea on exertion, paroxysmal nocturnal dyspnea Gastrointestinal: abdominal pain, other (increasing abdominal girth ) Exam - Vital Signs Vital signs: Vital Signs Temp Pulse Resp BP Pulse Ox 97.9 F 75 20 105/78 99 01/27/17 11:16 01/27/17 11:16 01/27/17 11:16 01/27/17 11:16 01/27/17 11:16 - General Appearance General appearance: well-developed, well-nourished, appears stated age EENT: ATNC, PERRL, mucous membranes moist Respiratory: Rales, Decreased Breath Sounds Heart: irregularly irregular Gastrointestinal: Present: normoactive bowel sounds, distended Integumentary: no rash, other (no edema ) Neurologic: no focal deficit, alert and oriented x3, strength 5/5, CN 3-12 intact Psychiatric: mood/affect appropriate, cooperative Results - Lab Results 01/27/17 11:28 01/27/17 11:28 Most recent lab results Calcium 9.0 mg/dL (8.4-10.2) 01/27/17 11:28 Magnesium 2.30 mg/dL (1.7-2.3) 01/27/17 Unknown Laboratory Tests 01/27/17 01/27/17 01/27/17 11:28 11:28 11:30 Calcium 9.0 Magnesium Total Bilirubin 1.00 AST 29 ALT 14 Alkaline Phosphatase 73 Total Creatine Kinase CK-MB (CK-2) CK-MB (CK-2) Rel Index Troponin T 0.499 H* NT-Pro-B Natriuret Pep 88796 H Total Protein 8.1 Albumin 4.2 Albumin/Globulin Ratio 1.1 Triglycerides 103 Cholesterol 129 LDL Cholesterol Direct 52 HDL Cholesterol 57 Cholesterol/HDL Ratio 2.26 01/27/17 01/27/17 01/27/17 11:39 14:02 21:39 Calcium Magnesium Total Bilirubin AST ALT Alkaline Phosphatase Total Creatine Kinase 62 50 L CK-MB (CK-2) 4.1 H 3.7 CK-MB (CK-2) Rel Index 6.6 H 7.4 H Troponin T 0.465 H* 0.466 H* NT-Pro-B Natriuret Pep Total Protein Albumin Albumin/Globulin Ratio Triglycerides Cholesterol LDL Cholesterol Direct HDL Cholesterol Cholesterol/HDL Ratio 01/27/17 Unknown Calcium Magnesium 2.30 Total Bilirubin AST ALT Alkaline Phosphatase Total Creatine Kinase CK-MB (CK-2) CK-MB (CK-2) Rel Index Troponin T NT-Pro-B Natriuret Pep Total Protein Albumin Albumin/Globulin Ratio Triglycerides Cholesterol LDL Cholesterol Direct HDL Cholesterol Cholesterol/HDL Ratio Assessment and Plan - Patient Problems (1) Atrial fibrillation with RVR Current Visit: Yes Status: Acute Plan to address problem: rate control as per cardiology (2) ESRD (end stage renal disease) Current Visit: Yes Status: Acute Plan to address problem: will arrange HD today. pt scheduled for possible therapeutic paracentesis today. Will target UF about 2kg as tolerated. Cont MWF schedule (3) Pleural effusion, right Current Visit: Yes Status: Acute Plan to address problem: expect to improve with HD (4) Chronic systolic congestive heart failure Current Visit: No Status: Acute Plan to address problem: on BB, fluid removal with HD as tolerated. DARREN-I on hold due to low BP. (5) HCV (hepatitis C virus) Current Visit: Yes Status: Acute Qualifiers: Viral hepatitis chronicity: V Hepatic coma status: H Plan to address problem: work up/treatment as per GI
--- NOTE | 2017-01-28 11:14 | Event Note ---
Date: 01/28/17 Ultrasound cancelled paracentesis for today due to pt being on Eliquis. Will reschedule for 01/30/17 after Eliquis being held for 48hrs. Spoke with cardiology, verbally consent given to hold Eliquis as needed for paracentesis.
[2017-01-28] MEDS ORDERED: NACL 0.9 (PRIMING MACHINE ONLY DIALYSIS) MC ONE (12:05)
--- NOTE | 2017-01-28 14:08 | Progress Note ---
Assessment and Plan Assessment and plan: --A. fib with rapid ventricular rate, Now rate controlled, DC Cardizem drip, continue Lopressor , cardiology following --Chronic anticoagulation on Eliquis --Acute on chronic systolic Congestive heart failure EF 10-15% Continue anti-failure medications, input output monitoring --Nonischemic cardiomyopathy, EF 10-15%, patient is a candidate for ICD Cardiology sitting up outpatient EP studies for evaluation, considering LifeVest at discharge --Specific elevation of cardiac enzymes probably secondary to end-stage renal disease/CHF Denies chest pain or shortness of breath, cardiology following --End-stage renal disease on hemodialysis; per schedule, nephrology following --Hypertension; blood pressure is on the lower range, cautiously administer blood pressure medications --History of of hepatitis C/ascites Supportive care, paracentesis as needed, GI following -- Medical non-complaints; counseling done patient strongly advised to comply with medications and diet and follow-up visits , patient verbalized understanding --DVT prophylaxis; Pt . On Eliquis Plan of care discussed with the patient, History Interval history: Patient seen in dialysis unit, receiving hemodialysis No new complaints denies chest pain or shortness of breath Vital signs reviewed Hospitalist Physical - Constitutional Vitals: Temp Pulse Resp BP Pulse Ox 97.6 F 116 H 18 126/60 97 01/28/17 10:25 01/28/17 12:30 01/28/17 10:25 01/28/17 12:30 01/28/17 13:39 General appearance: Present: no acute distress, well-nourished - EENT Eyes: Present: PERRL, EOM intact - Neck Neck: Present: supple, normal ROM - Respiratory Respiratory effort: normal Respiratory: bilateral: diminished, negative: rales, rhonchi, wheezing - Cardiovascular Rhythm: regular Heart Sounds: Present: S1 & S2 - Extremities Extremities: no ischemia, No edema - Abdominal General gastrointestinal: soft, non-tender, non-distended, normal bowel sounds - Integumentary Integumentary: Present: clear, warm - Psychiatric Psychiatric: appropriate mood/affect, cooperative Results - Labs CBC & Chem 7: 01/27/17 11:28 01/27/17 11:28 Labs: Laboratory Last Values WBC 4.6 K/mm3 (4.5-11.0) 01/27/17 11:28 RBC 4.24 M/mm3 (3.65-5.03) 01/27/17 11:28 Hgb 13.0 gm/dl (11.8-15.2) 01/27/17 11:28 Hct 40.2 % (35.5-45.6) 01/27/17 11:28 MCV 95 fl (84-94) H 01/27/17 11:28 MCH 31 pg (28-32) 01/27/17 11:28 MCHC 32 % (32-34) 01/27/17 11:28 RDW 19.1 % (13.2-15.2) H 01/27/17 11:28 Plt Count 178 K/mm3 (140-440) 01/27/17 11:28 Lymph % (Auto) 18.8 % (13.4-35.0) 01/27/17 11:28 Power % (Auto) 13.3 % (0.0-7.3) H 01/27/17 11:28 Eos % (Auto) 1.8 % (0.0-4.3) 01/27/17 11:28 Baso % (Auto) 1.1 % (0.0-1.8) 01/27/17 11:28 Lymph # 0.9 K/mm3 (1.2-5.4) L 01/27/17 11:28 Power # 0.6 K/mm3 (0.0-0.8) 01/27/17 11:28 Eos # 0.1 K/mm3 (0.0-0.4) 01/27/17 11:28 Baso # 0.1 K/mm3 (0.0-0.1) 01/27/17 11:28 Seg Neutrophils % 65.0 % (40.0-70.0) 01/27/17 11:28 Seg Neutrophils # 3.0 K/mm3 (1.8-7.7) 01/27/17 11:28 PT 14.9 Sec. (12.2-14.9) 01/27/17 11:28 INR 1.18 (0.87-1.13) H 01/27/17 11:28 APTT 32.5 Sec. (24.2-36.6) 01/27/17 11:28 Sodium 136 mmol/L (137-145) L 01/27/17 11:28 Potassium 4.6 mmol/L (3.6-5.0) 01/27/17 11:28 Chloride 92.5 mmol/L (98-107) L 01/27/17 11:28 Carbon Dioxide 25 mmol/L (22-30) 01/27/17 11:28 Anion Gap 23 mmol/L 01/27/17 11:28 BUN 33 mg/dL (9-20) H 01/27/17 11:28 Creatinine 7.5 mg/dL (0.8-1.5) H 01/27/17 11:28 Estimated GFR 9 ml/min 01/27/17 11:28 BUN/Creatinine Ratio 4.40 % 01/27/17 11:28 Glucose 108 mg/dL (75-100) H 01/27/17 11:28 Calcium 9.0 mg/dL (8.4-10.2) 01/27/17 11:28 Magnesium 2.30 mg/dL (1.7-2.3) 01/27/17 Unknown Total Bilirubin 1.00 mg/dL (0.1-1.2) 01/27/17 11:28 AST 29 units/L (5-40) 01/27/17 11:28 ALT 14 units/L (7-56) 01/27/17 11:28 Alkaline Phosphatase 73 units/L (35-129) 01/27/17 11:28 Total Creatine Kinase 50 units/L (55-170) L 01/27/17 21:39 CK-MB (CK-2) 3.7 ng/mL (0.0-4.0) 01/27/17 21:39 CK-MB (CK-2) Rel Index 7.4 (0-4) H 01/27/17 21:39 Troponin T 0.466 ng/mL (0.00-0.029) H* 01/27/17 21:39 NT-Pro-B Natriuret Pep 32287 pg/mL (0-900) H 01/27/17 11:30 Total Protein 8.1 g/dL (6.3-8.2) 01/27/17 11:28 Albumin 4.2 g/dL (3.9-5) 01/27/17 11:28 Albumin/Globulin Ratio 1.1 % 01/27/17 11:28 Triglycerides 103 mg/dL (2-149) 01/27/17 11:28 Cholesterol 129 mg/dL (50-199) 01/27/17 11:28 LDL Cholesterol Direct 52 mg/dL (50-130) 01/27/17 11:28 HDL Cholesterol 57 mg/dL (40-59) 01/27/17 11:28 Cholesterol/HDL Ratio 2.26 % 01/27/17 11:28 Hep Bs Antigen Non-reactive (Negative) 01/28/17 10:55 Hepatitis C Antibody Reactive (NonReactive) A 01/28/17 10:55
[2017-01-28] MEDS: HEPARIN IV PRN (14:54)
[2017-01-29] MEDS: LOPRESSOR PO SCH ×3 (00:05→22:08)
[2017-01-29 06:18] LABS: BUN/Creatinine Ratio 4.84; Potassium 3.7 mmol/L (3.6-5.0)
--- NOTE | 2017-01-29 10:03 | Gastroenterology Progress Note ---
<CORTNEY PRESTON - Last Filed: 01/29/17 10:03> Assessment and Plan 1. HCV 2.abd distention 3.Acute on chronic systolic heart failure 4.elevated troponin 5.ESRD on HD -afebrile -LFTs-WNL -PLt -WNL -INR 1.18 -pt with abd distention (possible ascites)- etiology most likely 2/2 volume overload due to cardiomyopathy -continue to hold Eliquis, paracentesis pending for tomorrow -volume optimization per HD-defer to nephrology -hepatitis C antibody- positive -pt will need to f/u as an outpatient for HVC treatment -will follow Subjective Date of service: 01/29/17 Principal diagnosis: HCV Interval history: Patient sitting up in bed. No acute distress. Tolerating diet well. Denies abd pain, N/V, or signs of bleeding. Objective - Constitutional Vitals: Temp Pulse Resp BP Pulse Ox 97.4 F L 123 H 24 116/90 97 01/29/17 08:12 01/29/17 09:57 01/29/17 08:12 01/29/17 09:57 01/29/17 08:12 General appearance: no acute distress - EENT Eyes: PERRL, EOM intact ENT: hearing intact - Neck Neck: supple, normal ROM - Respiratory Respiratory: bilateral: CTA (anterior) - Cardiovascular Rhythm: other (tachycardia) Heart Sounds: Present: S1 & S2 - Extremities Extremities: No edema - Gastrointestinal General gastrointestinal: Present: non-tender, distended, normal bowel sounds - Neurologic Neurological: alert and oriented x3 - Psychiatric Psychiatric: appropriate mood/affect - Labs CBC & Chem 7: 01/27/17 11:28 01/29/17 05:17 Labs: Laboratory Results - last 24 hr 01/28/17 01/28/17 01/29/17 10:55 10:55 05:17 Sodium 136 L Potassium 3.7 Chloride 93.0 L Carbon Dioxide 22 Anion Gap 25 BUN 32 H Creatinine 6.6 H Estimated GFR 10 BUN/Creatinine Ratio 4.84 Glucose 120 H Calcium 9.0 Hep Bs Antigen Non-reactive Hepatitis C Antibody Reactive A <MIRIAN COLEMAN - Last Filed: 01/29/17 16:38> Assessment and Plan Patient seen and examined. Agree with note by Cortney Preston. Abdominal exam with mild distention, no obvious fluid wave/ascites. Recommend diagnostic tap if there is ascites present and safe to obtain fluid. Patient will need to f/u in Gi clinic after discharge for evaluation for hep c treatment. Otherwise, no further inpatient recommendations from GI at this time. Will sign off, please call as needed or with questions. F/u in GI clinic 3-4 weeks after discharge. Objective - Constitutional Vitals: Temp Pulse Resp BP Pulse Ox 97.5 F L 118 H 22 106/73 97 01/29/17 11:51 01/29/17 11:51 01/29/17 11:51 01/29/17 11:51 01/29/17 11:38 - Labs CBC & Chem 7: 01/27/17 11:28 01/29/17 05:17 Labs: Laboratory Results - last 24 hr 01/29/17 05:17 Sodium 136 L Potassium 3.7 Chloride 93.0 L Carbon Dioxide 22 Anion Gap 25 BUN 32 H Creatinine 6.6 H Estimated GFR 10 BUN/Creatinine Ratio 4.84 Glucose 120 H Calcium 9.0
--- NOTE | 2017-01-29 10:33 | Progress Note ---
Assessment and Plan Assessment: Acute on chronic systolic heart failure Elevated troponin - ECG with no ischemic changes; pt denies chest pain; Madiha flat overnight. Syncope NICMP - EF 10-15% on echo 09/24/2016 Paroxysmal atrial flutter / atrial fibrillation with RVR / sinus tachycardia Ascites / h/o hepatitis C H/o HTN - currently with hypotension. ESRD on HD - followed by Dr. Jane. NSVT Noncompliance with medication regimen Plan: Increase lopressor to 25mg PO BID. Initiate PO amiodarone, 400mg BID. Hold home losartan in setting of borderline hypotension. Volume optimization per HD. For paracentesis tomorrow per GI. Eliquis held. Pt has been approved for LifeVest and will obtain prior to discharge. Assessment and plan reviewed with pt at bedside. The patient has been seen in conjunction with Dr. Carter who agrees with the assessment and plan of care. Subjective Date of service: 01/29/17 Principal diagnosis: HF; AFib/Aflutter; CMP; syncope Interval history: Pt resting comfortably in bed, denies any complaints. In AFlutter with RVR on tele, HR 110-120s, BPs stable. NSVT noted on tele overnight. Objective Last Vital Signs Temp 97.4 F L 01/29/17 08:12 Pulse 123 H 01/29/17 09:57 Resp 24 01/29/17 08:12 BP 116/90 01/29/17 09:57 Pulse Ox 97 01/29/17 08:12 - Physical Examination General: No Apparent Distress HEENT: Positive: PERRL, Normocephaly, Mucus Membranes Moist Neck: Positive: neck supple, trachea midline Neuro: Positive: Grossly Intact, Cranial Nerve 2-12 Intact Abdomen: Positive: Active Bowel Sounds, Ascites, Distended. Negative: Tender Skin: Positive: Clear. Negative: Rash, Wound Musculoskeletal: No Fluid Collection, No Pain, Normal Range of Motion Extremities: Absent: edema - Labs and Meds Comprehensive Metabolic Panel 01/29/17 Range/Units 05:17 Sodium 136 L (137-145) mmol/L Potassium 3.7 (3.6-5.0) mmol/L Chloride 93.0 L (98-107) mmol/L Carbon Dioxide 22 (22-30) mmol/L BUN 32 H (9-20) mg/dL Creatinine 6.6 H (0.8-1.5) mg/dL Glucose 120 H (75-100) mg/dL Calcium 9.0 (8.4-10.2) mg/dL - Imaging and Cardiology EKG: image reviewed Echo: report reviewed (09/24/2016 showed EF 10-15%, LV mild to moderately dilated , LA severely dilated, RV mild to moderately dilated, RA mild to moderately dilated, severe MR, moderate TR, moderate SC. ) Cardiac cath: report reviewed (Normal coronaries per cath 01/2013)
[2017-01-29] MEDS: CORDARONE PO SCH ×2 (11:30→22:07)
[2017-01-29] MEDS: PERCOCET 5/325 PO PRN ×2 (11:30→20:13)
--- NOTE | 2017-01-29 14:31 | Progress Note ---
Assessment and Plan - Patient Problems (1) ESRD (end stage renal disease) Current Visit: Yes Status: Acute Plan to address problem: Cont HD on MWF schedule (2) Atrial fibrillation with RVR Current Visit: Yes Status: Acute Plan to address problem: rate control as per cardiology (3) Pleural effusion, right Current Visit: Yes Status: Acute Plan to address problem: expect to improve with HD (4) Chronic systolic congestive heart failure Current Visit: No Status: Acute Plan to address problem: on BB, fluid removal with HD as tolerated. DARREN-I/ARB on hold due to low BP. (5) HCV (hepatitis C virus) Current Visit: Yes Status: Acute Qualifiers: Viral hepatitis chronicity: V Hepatic coma status: H Plan to address problem: work up/treatment as per GI Subjective Date of service: 01/29/17 Principal diagnosis: HF; AFib/Aflutter; CMP; syncope Interval history: pt awake, alert, in no acute distress Objective - Vital Signs Vital signs: Vital Signs - 12hr 01/29/17 01/29/17 01/29/17 04:45 08:12 09:42 Temperature 98.0 F 97.4 F L Pulse Rate 122 H 123 H 120 H Respiratory 20 24 Rate Blood Pressure 107/72 116/90 O2 Sat by Pulse 97 97 Oximetry 01/29/17 01/29/17 01/29/17 09:57 11:38 11:51 Temperature 97.5 F L Pulse Rate 123 H 118 H Respiratory 22 Rate Blood Pressure 116/90 106/73 O2 Sat by Pulse 97 Oximetry - General Appearance General appearance: well-developed, well-nourished, appears stated age EENT: ATNC, PERRL, mucous membranes moist Neck: no JVD Respiratory: Present: Clear to Ascultation Cardiology: regular, tachycardia Gastrointestinal: normal, normoactive bowel sounds Integumentary: no rash, other (no edema, LUE AVF with good thrill/bruit) Neurologic: no focal deficit, alert and oriented x3, strength 5/5, CN 3-12 intact Psychiatric: mood/affect appropriate, cooperative - Lab 01/27/17 11:28 01/29/17 05:17 Most recent lab results Calcium 9.0 mg/dL (8.4-10.2) 01/29/17 05:17 Magnesium 2.30 mg/dL (1.7-2.3) 01/27/17 Unknown
--- NOTE | 2017-01-29 19:13 | Progress Note ---
Assessment and Plan Assessment and plan: --Nonischemic cardiomyopathy, EF 10-15%, patient is a candidate for ICD Cardiology sitting up outpatient EP studies for evaluation, considering LifeVest at discharge --A. fib with rapid ventricular rate, Now rate controlled, DC Cardizem drip, continue Lopressor , cardiology following --Chronic anticoagulation on Eliquis --Acute on chronic systolic Congestive heart failure EF 10-15% Continue anti-failure medications, input output monitoring --Specific elevation of cardiac enzymes probably secondary to end-stage renal disease/CHF Denies chest pain or shortness of breath, cardiology following --End-stage renal disease on hemodialysis; per schedule, nephrology following --Hypertension; blood pressure is on the lower range, cautiously administer blood pressure medications --History of of hepatitis C/ascites Supportive care, paracentesis as needed, GI following -- Medical non-complaints; counseling done patient strongly advised to comply with medications and diet and follow-up visits , patient verbalized understanding --DVT prophylaxis; Pt . On Eliquis Consults noted and appreciated Possible discharge in 1-2 days if stable History Interval history: Patient feels better, no new complaints Alert awake oriented 3 not in acute distress Hospitalist Physical - Constitutional Vitals: Temp Pulse Resp BP Pulse Ox 97.6 F 117 H 22 106/77 98 01/29/17 17:58 01/29/17 17:58 01/29/17 17:58 01/29/17 17:58 01/29/17 17:58 General appearance: Present: no acute distress, well-nourished - EENT Eyes: Present: PERRL, EOM intact - Neck Neck: Present: supple, normal ROM - Respiratory Respiratory effort: normal Respiratory: bilateral: diminished, negative: rales, rhonchi, wheezing - Cardiovascular Rhythm: regular Heart Sounds: Present: S1 & S2 - Extremities Extremities: no ischemia, No edema - Abdominal General gastrointestinal: soft, non-tender, non-distended, normal bowel sounds - Integumentary Integumentary: Present: clear, warm - Psychiatric Psychiatric: appropriate mood/affect, cooperative - Neurologic Neurologic: CNII-XII intact, moves all extremities Results - Labs CBC & Chem 7: 01/27/17 11:28 01/29/17 05:17 Labs: Laboratory Last Values WBC 4.6 K/mm3 (4.5-11.0) 01/27/17 11:28 RBC 4.24 M/mm3 (3.65-5.03) 01/27/17 11:28 Hgb 13.0 gm/dl (11.8-15.2) 01/27/17 11:28 Hct 40.2 % (35.5-45.6) 01/27/17 11:28 MCV 95 fl (84-94) H 01/27/17 11:28 MCH 31 pg (28-32) 01/27/17 11:28 MCHC 32 % (32-34) 01/27/17 11:28 RDW 19.1 % (13.2-15.2) H 01/27/17 11:28 Plt Count 178 K/mm3 (140-440) 01/27/17 11:28 Lymph % (Auto) 18.8 % (13.4-35.0) 01/27/17 11:28 [place] % (Auto) 13.3 % (0.0-7.3) H 01/27/17 11:28 Eos % (Auto) 1.8 % (0.0-4.3) 01/27/17 11:28 Baso % (Auto) 1.1 % (0.0-1.8) 01/27/17 11:28 Lymph # 0.9 K/mm3 (1.2-5.4) L 01/27/17 11:28 [place] # 0.6 K/mm3 (0.0-0.8) 01/27/17 11:28 Eos # 0.1 K/mm3 (0.0-0.4) 01/27/17 11:28 Baso # 0.1 K/mm3 (0.0-0.1) 01/27/17 11:28 Seg Neutrophils % 65.0 % (40.0-70.0) 01/27/17 11:28 Seg Neutrophils # 3.0 K/mm3 (1.8-7.7) 01/27/17 11:28 PT 14.9 Sec. (12.2-14.9) 01/27/17 11:28 INR 1.18 (0.87-1.13) H 01/27/17 11:28 APTT 32.5 Sec. (24.2-36.6) 01/27/17 11:28 Sodium 136 mmol/L (137-145) L 01/29/17 05:17 Potassium 3.7 mmol/L (3.6-5.0) 01/29/17 05:17 Chloride 93.0 mmol/L (98-107) L 01/29/17 05:17 Carbon Dioxide 22 mmol/L (22-30) 01/29/17 05:17 Anion Gap 25 mmol/L 01/29/17 05:17 BUN 32 mg/dL (9-20) H 01/29/17 05:17 Creatinine 6.6 mg/dL (0.8-1.5) H 01/29/17 05:17 Estimated GFR 10 ml/min 01/29/17 05:17 BUN/Creatinine Ratio 4.84 % 01/29/17 05:17 Glucose 120 mg/dL (75-100) H 01/29/17 05:17 Calcium 9.0 mg/dL (8.4-10.2) 01/29/17 05:17 Magnesium 2.30 mg/dL (1.7-2.3) 01/27/17 Unknown Total Bilirubin 1.00 mg/dL (0.1-1.2) 01/27/17 11:28 AST 29 units/L (5-40) 01/27/17 11:28 ALT 14 units/L (7-56) 01/27/17 11:28 Alkaline Phosphatase 73 units/L (35-129) 01/27/17 11:28 Total Creatine Kinase 50 units/L (55-170) L 01/27/17 21:39 CK-MB (CK-2) 3.7 ng/mL (0.0-4.0) 01/27/17 21:39 CK-MB (CK-2) Rel Index 7.4 (0-4) H 01/27/17 21:39 Troponin T 0.466 ng/mL (0.00-0.029) H* 01/27/17 21:39 NT-Pro-B Natriuret Pep 57605 pg/mL (0-900) H 01/27/17 11:30 Total Protein 8.1 g/dL (6.3-8.2) 01/27/17 11:28 Albumin 4.2 g/dL (3.9-5) 01/27/17 11:28 Albumin/Globulin Ratio 1.1 % 01/27/17 11:28 Triglycerides 103 mg/dL (2-149) 01/27/17 11:28 Cholesterol 129 mg/dL (50-199) 01/27/17 11:28 LDL Cholesterol Direct 52 mg/dL (50-130) 01/27/17 11:28 HDL Cholesterol 57 mg/dL (40-59) 01/27/17 11:28 Cholesterol/HDL Ratio 2.26 % 01/27/17 11:28 Hep Bs Antigen Non-reactive (Negative) 01/28/17 10:55 Hepatitis C Antibody Reactive (NonReactive) A 01/28/17 10:55
[2017-01-29] MEDS: RESTORIL PO SCH (22:07)
[2017-01-30] MEDS: CORDARONE PO SCH ×2 (09:22→22:29)
[2017-01-30] MEDS: LOPRESSOR PO SCH ×2 (09:22→22:30)
--- NOTE | 2017-01-30 09:58 | Progress Note ---
Assessment and Plan Assessment and plan: --Ascites; [due to history of hepatitis C, ESRD, nonischemic cardiomyopathy] Abdominal paracentesis today, fluid analysis to rule out SBP --Nonischemic cardiomyopathy, EF 10-15%, patient is a candidate for ICD Cardiology sitting up outpatient EP studies for evaluation, considering LifeVest at discharge --A. fib with rapid ventricular rate, Now rate controlled, DC Cardizem drip, continue Lopressor , cardiology following --Chronic anticoagulation on Eliquis --Acute on chronic systolic Congestive heart failure EF 10-15% Continue anti-failure medications, input output monitoring --Specific elevation of cardiac enzymes probably secondary to end-stage renal disease/CHF Denies chest pain or shortness of breath, cardiology following --End-stage renal disease on hemodialysis; per schedule, nephrology following --Hypertension; blood pressure is on the lower range, cautiously administer blood pressure medications --History of of hepatitis C/ascites Supportive care, paracentesis as needed, GI following -- Medical non-complaints; counseling done patient strongly advised to comply with medications and diet and follow-up visits , patient verbalized understanding --DVT prophylaxis; Pt . On Eliquis Consults noted and appreciated Possible discharge in 1-2 days if stable History Interval history: Patient seen and evaluated medical records reviewed No new events reported by nursing staff Received hemodialysis today, alert awake oriented 3 no new complaints Hospitalist Physical - Constitutional Vitals: Temp Pulse Resp BP Pulse Ox 97.2 F L 95 H 16 100/78 100 01/30/17 09:43 01/30/17 09:43 01/30/17 09:43 01/30/17 09:43 01/30/17 09:43 General appearance: Present: no acute distress, well-nourished - EENT Eyes: Present: PERRL, EOM intact - Neck Neck: Present: supple, normal ROM - Respiratory Respiratory effort: normal Respiratory: bilateral: diminished, negative: rales, rhonchi, wheezing - Cardiovascular Rhythm: regular Heart Sounds: Present: S1 & S2 - Extremities Extremities: no ischemia, pulses intact - Abdominal General gastrointestinal: soft, non-tender, distended, normal bowel sounds, other (ascites) - Integumentary Integumentary: Present: clear, warm - Psychiatric Psychiatric: appropriate mood/affect, cooperative - Neurologic Neurologic: CNII-XII intact, moves all extremities Results - Labs CBC & Chem 7: 01/27/17 11:28 01/29/17 05:17 Labs: Laboratory Last Values WBC 4.6 K/mm3 (4.5-11.0) 01/27/17 11:28 RBC 4.24 M/mm3 (3.65-5.03) 01/27/17 11:28 Hgb 13.0 gm/dl (11.8-15.2) 01/27/17 11:28 Hct 40.2 % (35.5-45.6) 01/27/17 11:28 MCV 95 fl (84-94) H 01/27/17 11:28 MCH 31 pg (28-32) 01/27/17 11:28 MCHC 32 % (32-34) 01/27/17 11:28 RDW 19.1 % (13.2-15.2) H 01/27/17 11:28 Plt Count 178 K/mm3 (140-440) 01/27/17 11:28 Lymph % (Auto) 18.8 % (13.4-35.0) 01/27/17 11:28 [place] % (Auto) 13.3 % (0.0-7.3) H 01/27/17 11:28 Eos % (Auto) 1.8 % (0.0-4.3) 01/27/17 11:28 Baso % (Auto) 1.1 % (0.0-1.8) 01/27/17 11:28 Lymph # 0.9 K/mm3 (1.2-5.4) L 01/27/17 11:28 [place] # 0.6 K/mm3 (0.0-0.8) 01/27/17 11:28 Eos # 0.1 K/mm3 (0.0-0.4) 01/27/17 11:28 Baso # 0.1 K/mm3 (0.0-0.1) 01/27/17 11:28 Seg Neutrophils % 65.0 % (40.0-70.0) 01/27/17 11:28 Seg Neutrophils # 3.0 K/mm3 (1.8-7.7) 01/27/17 11:28 PT 14.9 Sec. (12.2-14.9) 01/27/17 11:28 INR 1.18 (0.87-1.13) H 01/27/17 11:28 APTT 32.5 Sec. (24.2-36.6) 01/27/17 11:28 Sodium 136 mmol/L (137-145) L 01/29/17 05:17 Potassium 3.7 mmol/L (3.6-5.0) 01/29/17 05:17 Chloride 93.0 mmol/L (98-107) L 01/29/17 05:17 Carbon Dioxide 22 mmol/L (22-30) 01/29/17 05:17 Anion Gap 25 mmol/L 01/29/17 05:17 BUN 32 mg/dL (9-20) H 01/29/17 05:17 Creatinine 6.6 mg/dL (0.8-1.5) H 01/29/17 05:17 Estimated GFR 10 ml/min 01/29/17 05:17 BUN/Creatinine Ratio 4.84 % 01/29/17 05:17 Glucose 120 mg/dL (75-100) H 01/29/17 05:17 Calcium 9.0 mg/dL (8.4-10.2) 01/29/17 05:17 Magnesium 2.30 mg/dL (1.7-2.3) 01/27/17 Unknown Total Bilirubin 1.00 mg/dL (0.1-1.2) 01/27/17 11:28 AST 29 units/L (5-40) 01/27/17 11:28 ALT 14 units/L (7-56) 01/27/17 11:28 Alkaline Phosphatase 73 units/L (35-129) 01/27/17 11:28 Total Creatine Kinase 50 units/L (55-170) L 01/27/17 21:39 CK-MB (CK-2) 3.7 ng/mL (0.0-4.0) 01/27/17 21:39 CK-MB (CK-2) Rel Index 7.4 (0-4) H 01/27/17 21:39 Troponin T 0.466 ng/mL (0.00-0.029) H* 01/27/17 21:39 NT-Pro-B Natriuret Pep 04974 pg/mL (0-900) H 01/27/17 11:30 Total Protein 8.1 g/dL (6.3-8.2) 01/27/17 11:28 Albumin 4.2 g/dL (3.9-5) 01/27/17 11:28 Albumin/Globulin Ratio 1.1 % 01/27/17 11:28 Triglycerides 103 mg/dL (2-149) 01/27/17 11:28 Cholesterol 129 mg/dL (50-199) 01/27/17 11:28 LDL Cholesterol Direct 52 mg/dL (50-130) 01/27/17 11:28 HDL Cholesterol 57 mg/dL (40-59) 01/27/17 11:28 Cholesterol/HDL Ratio 2.26 % 01/27/17 11:28 Hep Bs Antigen Non-reactive (Negative) 01/28/17 10:55 Hepatitis C Antibody Reactive (NonReactive) A 01/28/17 10:55
[2017-01-30 10:47] LABS: INR 1.34 (0.87-1.13)
--- NOTE | 2017-01-30 11:36 | Progress Note ---
Assessment and Plan Assessment: Acute on chronic systolic heart failure Paroxysmal atrial flutter / atrial fibrillation with RVR / sinus tachycardia Elevated troponin - ECG with no ischemic changes; pt denies chest pain; Madiha flat overnight. Syncope NICMP - EF 10-15% on echo 09/24/2016 Ascites / h/o hepatitis C H/o HTN - currently with hypotension. ESRD on HD - followed by Dr. Jane. NSVT Noncompliance with medication regimen Plan: cont lopressor 25mg PO BID. Cont amio and decrease to 200mg PO BID from tomorrow AM. Hold home losartan in setting of borderline hypotension. Volume optimization per HD. For paracentesis today per GI. Eliquis held. Await LifeVest placement. Assessment and plan reviewed with pt at bedside. The patient has been seen in conjunction with Dr. Carter who agrees with the assessment and plan of care. Subjective Date of service: 01/30/17 Principal diagnosis: HF; AFib/Aflutter; CMP; syncope Interval history: Pt seen in HD, resting comfortably in bed, denies any complaints. Was in AFlutter throughout the night on tele, HR improving. BPs stable. NSVT noted on tele overnight. Objective Last Vital Signs Temp 97.5 F L 01/30/17 10:00 Pulse 80 01/30/17 10:00 Resp 18 01/30/17 10:00 BP 99/77 01/30/17 10:00 Pulse Ox 100 01/30/17 09:43 - Physical Examination General: No Apparent Distress HEENT: Positive: PERRL, Normocephaly, Mucus Membranes Moist Neck: Positive: neck supple, trachea midline Cardiac: Positive: irregularly irregular, S1/S2 Lungs: Positive: clear to auscultation Neuro: Positive: Grossly Intact, Cranial Nerve 2-12 Intact Abdomen: Positive: Active Bowel Sounds, Ascites, Distended. Negative: Tender Skin: Positive: Clear. Negative: Rash, Wound Musculoskeletal: No Fluid Collection, No Pain, Normal Range of Motion Extremities: Absent: edema - Labs and Meds Coagulation 01/30/17 Range/Units 10:00 PT 17.3 H (12.2-14.9) Sec. INR 1.34 H (0.87-1.13) - Imaging and Cardiology EKG: image reviewed Echo: report reviewed (09/24/2016 showed EF 10-15%, LV mild to moderately dilated , LA severely dilated, RV mild to moderately dilated, RA mild to moderately dilated, severe MR, moderate TR, moderate CO. ) Cardiac cath: report reviewed (Normal coronaries per cath 01/2013)
[2017-01-30] MEDS ORDERED: NACL 0.9 (PRIMING MACHINE ONLY DIALYSIS) MC ONE (12:21)
[2017-01-30] MEDS: HEPARIN IV PRN (14:32)
--- NOTE | 2017-01-30 15:56 | Progress Note ---
Assessment and Plan - Patient Problems (1) ESRD (end stage renal disease) Current Visit: Yes Status: Acute Plan to address problem: Cont HD on MWF schedule (2) Atrial fibrillation with RVR Current Visit: Yes Status: Acute Plan to address problem: rate control as per cardiology (3) Pleural effusion, right Current Visit: Yes Status: Acute Plan to address problem: expect to improve with HD (4) Chronic systolic congestive heart failure Current Visit: No Status: Acute Plan to address problem: on BB, fluid removal with HD as tolerated. DARREN-I/ARB on hold due to low BP. (5) HCV (hepatitis C virus) Current Visit: Yes Status: Acute Qualifiers: Viral hepatitis chronicity: V Hepatic coma status: H Plan to address problem: work up/treatment as per GI. pending paracentesis Subjective Date of service: 01/30/17 Principal diagnosis: HF; AFib/Aflutter; CMP; syncope Interval history: pt awake, alert, in no acute distress Objective - Vital Signs Vital signs: Vital Signs - 12hr 01/30/17 01/30/17 01/30/17 05:32 09:22 09:43 Temperature 97.4 F L 97.2 F L Pulse Rate 89 95 H 95 H Respiratory 18 16 Rate Blood Pressure 103/68 100/78 100/78 O2 Sat by Pulse 99 100 Oximetry 01/30/17 01/30/17 01/30/17 10:00 10:15 10:30 Temperature 97.5 F L Pulse Rate 67 69 59 L Respiratory 18 Rate Blood Pressure 106/70 97/76 110/90 O2 Sat by Pulse Oximetry 01/30/17 01/30/17 01/30/17 10:45 11:00 11:15 Temperature Pulse Rate 75 62 53 L Respiratory Rate Blood Pressure 118/99 103/64 101/78 O2 Sat by Pulse Oximetry 01/30/17 01/30/17 01/30/17 11:30 11:45 12:00 Temperature Pulse Rate 76 60 54 L Respiratory Rate Blood Pressure 108/86 92/74 98/76 O2 Sat by Pulse Oximetry 01/30/17 01/30/17 01/30/17 12:15 12:30 12:45 Temperature Pulse Rate 74 74 68 Respiratory Rate Blood Pressure 108/87 96/75 98/85 O2 Sat by Pulse Oximetry 01/30/17 01/30/17 01/30/17 13:00 13:15 13:30 Temperature Pulse Rate 56 L 76 76 Respiratory Rate Blood Pressure 106/87 94/75 107/83 O2 Sat by Pulse Oximetry 01/30/17 13:40 Temperature 97.6 F Pulse Rate 58 L Respiratory 18 Rate Blood Pressure 104/84 O2 Sat by Pulse Oximetry - General Appearance General appearance: well-developed, well-nourished, appears stated age EENT: ATNC, PERRL, mucous membranes moist Neck: no JVD Respiratory: Present: Clear to Ascultation Cardiology: irregularly irregular Gastrointestinal: normoactive bowel sounds, distended Integumentary: no rash, other (no edema ) Neurologic: no focal deficit, alert and oriented x3, strength 5/5, CN 3-12 intact Psychiatric: mood/affect appropriate, cooperative - Lab 01/27/17 11:28 01/29/17 05:17 Most recent lab results Calcium 9.0 mg/dL (8.4-10.2) 01/29/17 05:17 Magnesium 2.30 mg/dL (1.7-2.3) 01/27/17 Unknown
[2017-01-30] MEDS: RESTORIL PO SCH ×2 (22:28→22:29)
--- NOTE | 2017-01-31 09:46 | Progress Note ---
Hospitalist Physical - Constitutional Vitals: Temp Pulse Resp BP Pulse Ox 97.3 F L 90 20 121/64 100 01/30/17 22:37 01/31/17 01:00 01/30/17 22:37 01/30/17 22:37 01/30/17 22:37 General appearance: Present: no acute distress, well-nourished Results - Labs CBC & Chem 7: 01/27/17 11:28 01/29/17 05:17 Labs: Laboratory Last Values WBC 4.6 K/mm3 (4.5-11.0) 01/27/17 11:28 RBC 4.24 M/mm3 (3.65-5.03) 01/27/17 11:28 Hgb 13.0 gm/dl (11.8-15.2) 01/27/17 11:28 Hct 40.2 % (35.5-45.6) 01/27/17 11:28 MCV 95 fl (84-94) H 01/27/17 11:28 MCH 31 pg (28-32) 01/27/17 11:28 MCHC 32 % (32-34) 01/27/17 11:28 RDW 19.1 % (13.2-15.2) H 01/27/17 11:28 Plt Count 178 K/mm3 (140-440) 01/27/17 11:28 Lymph % (Auto) 18.8 % (13.4-35.0) 01/27/17 11:28 [place] % (Auto) 13.3 % (0.0-7.3) H 01/27/17 11:28 Eos % (Auto) 1.8 % (0.0-4.3) 01/27/17 11:28 Baso % (Auto) 1.1 % (0.0-1.8) 01/27/17 11:28 Lymph # 0.9 K/mm3 (1.2-5.4) L 01/27/17 11:28 [place] # 0.6 K/mm3 (0.0-0.8) 01/27/17 11:28 Eos # 0.1 K/mm3 (0.0-0.4) 01/27/17 11:28 Baso # 0.1 K/mm3 (0.0-0.1) 01/27/17 11:28 Seg Neutrophils % 65.0 % (40.0-70.0) 01/27/17 11:28 Seg Neutrophils # 3.0 K/mm3 (1.8-7.7) 01/27/17 11:28 PT 17.3 Sec. (12.2-14.9) H 01/30/17 10:00 INR 1.34 (0.87-1.13) H 01/30/17 10:00 APTT 32.5 Sec. (24.2-36.6) 01/27/17 11:28 Sodium 136 mmol/L (137-145) L 01/29/17 05:17 Potassium 3.7 mmol/L (3.6-5.0) 01/29/17 05:17 Chloride 93.0 mmol/L (98-107) L 01/29/17 05:17 Carbon Dioxide 22 mmol/L (22-30) 01/29/17 05:17 Anion Gap 25 mmol/L 01/29/17 05:17 BUN 32 mg/dL (9-20) H 01/29/17 05:17 Creatinine 6.6 mg/dL (0.8-1.5) H 01/29/17 05:17 Estimated GFR 10 ml/min 01/29/17 05:17 BUN/Creatinine Ratio 4.84 % 01/29/17 05:17 Glucose 120 mg/dL (75-100) H 01/29/17 05:17 POC Glucose 88 (70-105) 01/30/17 22:54 Calcium 9.0 mg/dL (8.4-10.2) 01/29/17 05:17 Magnesium 2.30 mg/dL (1.7-2.3) 01/27/17 Unknown Total Bilirubin 1.00 mg/dL (0.1-1.2) 01/27/17 11:28 AST 29 units/L (5-40) 01/27/17 11:28 ALT 14 units/L (7-56) 01/27/17 11:28 Alkaline Phosphatase 73 units/L (35-129) 01/27/17 11:28 Total Creatine Kinase 50 units/L (55-170) L 01/27/17 21:39 CK-MB (CK-2) 3.7 ng/mL (0.0-4.0) 01/27/17 21:39 CK-MB (CK-2) Rel Index 7.4 (0-4) H 01/27/17 21:39 Troponin T 0.466 ng/mL (0.00-0.029) H* 01/27/17 21:39 NT-Pro-B Natriuret Pep 34405 pg/mL (0-900) H 01/27/17 11:30 Total Protein 8.1 g/dL (6.3-8.2) 01/27/17 11:28 Albumin 4.2 g/dL (3.9-5) 01/27/17 11:28 Albumin/Globulin Ratio 1.1 % 01/27/17 11:28 Triglycerides 103 mg/dL (2-149) 01/27/17 11:28 Cholesterol 129 mg/dL (50-199) 01/27/17 11:28 LDL Cholesterol Direct 52 mg/dL (50-130) 01/27/17 11:28 HDL Cholesterol 57 mg/dL (40-59) 01/27/17 11:28 Cholesterol/HDL Ratio 2.26 % 01/27/17 11:28 Fluid Type Paracentesis 01/28/17 Unknown Fluid Color Yellow 01/28/17 Unknown Fluid Appearance Hazy 01/28/17 Unknown Fluid WBC 3 /mm3 01/28/17 Unknown Fluid RBC 1000 /mm3 01/28/17 Unknown Fluid Seg Neutrophils 1.0 % 01/28/17 Unknown Fluid Lymphocytes 10.0 % 01/28/17 Unknown Fluid Reactive Lymphs Not Reportable 01/28/17 Unknown Fluid Monocytes 89.0 % 01/28/17 Unknown Fluid Eosinophils Not Reportable 01/28/17 Unknown Fluid Basophils Not Reportable 01/28/17 Unknown Hep Bs Antigen Non-reactive (Negative) 01/28/17 10:55 Hep B Core Total Ab Nonreactive (Nonreactive) 01/28/17 10:55 Hepatitis C Antibody Reactive (NonReactive) A 01/28/17 10:55 Hepatitis C Genotype 1b 01/28/17 10:55
[2017-01-31] MEDS ORDERED: CORDARONE PO SCH (10:00)
--- NOTE | 2017-01-31 10:16 | Progress Note ---
Assessment and Plan Assessment: Acute on chronic systolic heart failure Paroxysmal atrial flutter / atrial fibrillation with RVR / sinus tachycardia Elevated troponin - ECG with no ischemic changes; pt denies chest pain; Madiha flat overnight. Syncope NICMP - EF 10-15% on echo 09/24/2016 Ascites / h/o hepatitis C H/o HTN - currently with hypotension. ESRD on HD - followed by Dr. Jane. NSVT Noncompliance with medication regimen Plan: Increase Lopressor to 25 mg 3 times a day Cont amio and decrease to 200mg PO BID from tomorrow AM. Hold home losartan in setting of borderline hypotension. Volume optimization per HD. For paracentesis today per GI. Eliquis held. Await LifeVest placement. Assessment and plan reviewed with pt at bedside. Subjective Date of service: 01/31/17 Principal diagnosis: HF; AFib/Aflutter; CMP; syncope Interval history: Patient is able lie down flat no chest pain or shortness of breath Objective Vital Signs Temp Pulse Resp BP Pulse Ox 01/31/17 01:00 90 01/30/17 22:37 97.3 F L 63 20 121/64 100 01/30/17 22:30 117 H 90/54 01/30/17 22:00 20 01/30/17 20:48 98 01/30/17 17:16 98.2 F 113 H 16 80/49 99 01/30/17 13:40 97.6 F 58 L 18 104/84 01/30/17 13:30 76 107/83 01/30/17 13:15 76 94/75 01/30/17 13:00 56 L 106/87 01/30/17 12:45 68 98/85 01/30/17 12:30 74 96/75 01/30/17 12:15 74 108/87 01/30/17 12:00 54 L 98/76 01/30/17 11:45 60 92/74 01/30/17 11:30 76 108/86 01/30/17 11:15 53 L 101/78 01/30/17 11:00 62 103/64 01/30/17 10:45 75 118/99 01/30/17 10:30 59 L 110/90 - Physical Examination General: No Apparent Distress HEENT: Positive: PERRL, Normocephaly, Mucus Membranes Moist Neck: Positive: neck supple, trachea midline Cardiac: Positive: Reg Rate and Rhythm, Irregularly Regular Lungs: Positive: clear to auscultation Neuro: Positive: Grossly Intact, Cranial Nerve 2-12 Intact Abdomen: Positive: Active Bowel Sounds, Ascites, Distended. Negative: Tender Skin: Positive: Clear. Negative: Rash, Wound Musculoskeletal: No Fluid Collection, No Pain, Normal Range of Motion Extremities: Absent: edema - Labs and Meds Coagulation 01/30/17 Range/Units 10:00 PT 17.3 H (12.2-14.9) Sec. INR 1.34 H (0.87-1.13) - Imaging and Cardiology EKG: image reviewed Echo: report reviewed (09/24/2016 showed EF 10-15%, LV mild to moderately dilated , LA severely dilated, RV mild to moderately dilated, RA mild to moderately dilated, severe MR, moderate TR, moderate CA. ) Cardiac cath: report reviewed (Normal coronaries per cath 01/2013) - Telemetry EKG Rhythm: Atrial Fibrillation (average heart rate 100 110)
--- NOTE | 2017-01-31 10:34 | Progress Note ---
Assessment and Plan - Patient Problems (1) Atrial fibrillation with rapid ventricular response Current Visit: Yes Status: Acute Plan to address problem: Rate control by sliver chopper (2) ESRD (end stage renal disease) on dialysis Current Visit: Yes Status: Acute Plan to address problem: Hemodialysis on a Thursday, Thursday and Thursday schedule (3) HCV (hepatitis C virus) Current Visit: Yes Status: Acute Qualifiers: Viral hepatitis chronicity: V Hepatic coma status: H Plan to address problem: Follow up with water pump assembler as an outpatient (4) Ascites Current Visit: No Status: Acute Qualifiers: Ascites type: other type Qualified Code(s): R18.8 - Other ascites Plan to address problem: s/p Paracentesis Subjective Date of service: 01/31/17 Principal diagnosis: HF; AFib/Aflutter; CMP; syncope Interval history: Patient seen lying in bed. No chest pain, shortness of breath or palpitations. Objective - Exam Narrative Exam: [Elderly -[place]ian male lying in bed] in no acute distress HEENT [normocephalic atraumatic, pupils equal reactive to light, pink, clear oropharynx] Neck [supple, no thyromegaly no jugular venous distention] CVS [S1-S2 irregular rate rhythm without murmur, rub or gallop] Chest [clear to auscultation] Abdomen [soft nondistended nontender no organomegaly no bruit bowel sounds present] Extremities [no edema no cyanosis or clubbing] Neuro [awake, alert oriented x3 no gross deficit] - Vital Signs Vital signs: Vital Signs - 12hr 01/30/17 01/31/17 22:37 01:00 Temperature 97.3 F L Pulse Rate 63 90 Respiratory 20 Rate Blood Pressure 121/64 O2 Sat by Pulse 100 Oximetry - Lab 01/27/17 11:28 01/29/17 05:17 Most recent lab results Calcium 9.0 mg/dL (8.4-10.2) 01/29/17 05:17 Magnesium 2.30 mg/dL (1.7-2.3) 01/27/17 Unknown
[2017-01-31] MEDS ORDERED: LOPRESSOR PO SCH (11:00)
--- NOTE | 2017-01-31 14:46 | Discharge Summary ---
Providers - Providers Date of Admission: 01/27/17 14:05 Date of discharge: 01/31/17 Attending physician: SAYDA WILSON 01/27/17 14:15 Consult to Physician [CONS] Routine Consulting Provider: MARY ANN CORCORAN Reason For Exam: esrd Place consult to:: nephrology Notified:: A SERVICE Was contact made?: Yes Time called:: 18:12 01/27/17 14:16 Consult to Physician [CONS] Routine Consulting Provider: VALERY JAY Reason For Exam: HCV Place consult to:: GI Notified:: A SERVICE Phone number called:: [phone] Was contact made?: Yes If yes, spoke with:: MORALES Time called:: 17:49 Primary care physician: CORN COOKER Hospitalization Reason for admission: worsening shortness of breath Condition: Stable Pertinent studies: Ultrasound-guided paracentesis Chest x-ray Hospital course: Very pleasant 61-year-old -[place] male patient with significant history of end-stage renal disease on hemodialysis congestive heart failure hypertension hepatitis C atrial fibrillation medical noncompliance was admitted through emergency room with worsening shortness of breath, related the patient admitted to the hospital seen by servomechanism assembler and clinical laboratory technician medications were optimized Evaluated by GI for his hepatitis C, underwent abdominal paracentesis, negative for SBP Discharge diagnoses; --Acute on chronic respiratory failure, Secondary to fluid overload, patient received hemodialysis, anti-failure medications Symptoms significantly improved --A. fib with rapid ventricular rate Cardizem distal tip discontinued and started on beta blockers and amiodarone --Chronic anticoagulation with Eliquis --Acute on chronic systolic congestive heart failure; ejection fraction 10-15% Cardiology evaluated the patient, medications optimized, advised life vest prior to discharge --Nonischemic cardiomyopathy with ejection fraction of 10-15%, life is placement prior to discharge, EP studies and evaluation for ICD placement --End-stage renal disease on hemodialysis; nephrology evaluated the patient patient received dialysis per schedule --Ascites/hepatitis C; status post ultrasound-guided abdominal paracentesis and removal of peritoneal fluid, fluid analysis negative for SBP --Nonspecific elevation of cardiac enzymes; again due to end-stage renal disease and congestive heart failure , cardiology evaluated medications optimized --Hypertension; moderate control continue current antihypertensives and when necessary medications --Medical noncompliance; patient strongly advised to comply with medications and doctors visits hemodialysis, verbalized understanding Patient is comfortable in bed no new complaints, case management has included chest Cleared by cardiology for discharge and follow up with him as outpatient The time of discharge patient is hemodynamically and clinically stable Disposition: DC-30 STILL A PATIENT Time spent for discharge: 35 min Core Measure Documentation - Palliative Care Palliative Care/ Comfort Measures: Not Applicable - Core Measures Any of the following diagnoses?: heart failure - Heart Failure Discharge Requirements DARREN/ARB for LVSD if EF <40%: No Reason for no DARREN/ARB: Renal impairment Beta rochelle at discharge: Yes Exam - Constitutional Vitals: Temp Pulse Resp BP Pulse Ox 98.7 F 65 18 88/50 100 01/31/17 08:00 01/31/17 11:19 01/31/17 08:00 01/31/17 11:19 01/31/17 08:00 General appearance: Present: no acute distress, well-nourished - EENT Eyes: Present: PERRL, EOM intact - Neck Neck: Present: supple - Respiratory Respiratory effort: normal Respiratory: bilateral: diminished, negative: rales, rhonchi, wheezing - Cardiovascular Rhythm: regular Heart Sounds: Present: S1 & S2 - Extremities Extremities: no ischemia, No edema - Abdominal General gastrointestinal: Present: soft, non-tender, non-distended, normal bowel sounds - Integumentary Integumentary: Present: clear, warm - Musculoskeletal Musculoskeletal: strength equal bilaterally - Psychiatric Psychiatric: appropriate mood/affect, cooperative - Neurologic Neurologic: CNII-XII intact, moves all extremities Plan Activity: no restrictions Diet: renal, other (cardiac diet) Additional Instructions: Follow renal/hemodialysis per schedule. If you have chest pain or shortness of breath, contact M.D. or go to emergency room Follow up with: PRIMARY CAREMD [Primary Care Provider] - 7 Days REESE CHEEMA MD [Staff Physician] - 7 Days NANNETTE PÉREZ MD [Staff Physician] - 7 Days VALERY JAY MD [Staff Physician] - 7 Days Prescriptions: Amiodarone [Cordarone 200 MG TAB] 200 mg PO BID #60 tablet Metoprolol [Lopressor TAB] 25 mg PO TID #90 tablet oxyCODONE /ACETAMINOPHEN [Percocet 5/325 mg] 1 tab PO QHS PRN #7 tablet PRN Reason: Pain, Moderate (4-6)
[2017-01-31 18:36] VITALS: BP 82/60
--- NOTE | 2017-02-09 08:48 | Ultrasound Report ---
ULTRASOUND PARACENTESIS History: Abdominal distention, hepatitis C, ascites. Findings: Informed consent was obtained. Sterile technique was utilized. 1% lidocaine for skin anesthesia. Using ultrasound guidance, a 5 Cong[place]ese centesis needle was advanced into the right peritoneal space. There was spontaneous return of clear yellow fluid. 3.3 L of fluid was drained. 120 cc of fluid was sent to the lab for analysis. No complications. Impression: Successful ultrasound guided paracentesis.
[2017-02-09 23:43] LABS: Total Protein,Body Fluid 4.3 (15.0-45.0)
== END 2017-01-31 20:20 | disposition home or self-care (01) | DRG 291 ==
LOC: ED 11:09 → 4A 14:05
PROVIDERS: ADMIT Internal Medicine; ATTEND Internal Medicine
PROC: 5A1D60Z (ICD-10-PCS; 2017-01-28)
PROC: 0W9G3ZZ Drainage of Peritoneal Cavity, Percutaneous Approach (ICD-10-PCS; principal; 2017-01-30)
DX: I13.2 Hypertensive heart and chronic kidney disease with heart failure and with stage 5 chronic kidney disease, or end stage renal disease (principal); I50.23 Acute on chronic systolic (congestive) heart failure; N18.6 End stage renal disease; J96.20 Acute and chronic respiratory failure, unspecified whether with hypoxia or hypercapnia; I48.91 Unspecified atrial fibrillation; B18.2 Chronic viral hepatitis C; I42.9 Cardiomyopathy, unspecified; R18.8 Other ascites; I95.9 Hypotension, unspecified; E87.70 Fluid overload, unspecified; F28 Other psychotic disorder not due to a substance or known physiological condition; I48.92 Unspecified atrial flutter; Z91.14 Patient's other noncompliance with medication regimen; Z82.49 Family history of ischemic heart disease and other diseases of the circulatory system; Z83.3 Family history of diabetes mellitus; Z79.01 Long term (current) use of anticoagulants
CPT/HCPCS: 36415; 49083; 71020; 80048; 80053; 80061; 82040; 82550; 82553; 82962; 83735; 83880; 84160; 84484; 85025; 85610; 85730; 86705; 86706; 86803; 87116; 87517; 87902; 88112; 88305; 89051; 93005; 93010; 94760; J1644; J7030

== ENCOUNTER 2017-02-10 09:08 | Day surgery (SDC) | payer MEDICAID ==
[~2017-02-10 09:08] MED LIST changes: -PEPCID PO NR; -VERSED IV NR
[2017-02-10] MEDS ORDERED: HEPARIN 10,000 UNITS/10 ML ONE (10:19)
[2017-02-10] MEDS ORDERED: SUBLIMAZE ONE (10:19)
[2017-02-10] MEDS ORDERED: VERSED ONE (10:19)
[2017-02-10] MEDS ORDERED: HEPARIN/NS 5000 UNIT/500ML(CATH LAB) 1,000 ML IR ONE (10:19)
[2017-02-10] MEDS ORDERED: NACL 0.9% 500 ML 500 ML ONE (10:20)
--- NOTE | 2017-02-10 10:32 | Operative Report ---
Operative Report Operative Report: Operative Report: Date of procedure: 02/10/2017 Pre-operative diagnosis: Complications of Dialysis Access Post-operative diagnosis: Same Procedure(s): 1. Access Left AV Graft with 6 Fr Sheath Arterial 2. Diagnostic Left Upper Extremity Arteriogram (No Previous Films for Comparison) 3. Ultrasound Guided Access Left Femoral Artery 4. Angioplasty Left Ulnar Artery Artery with 2.5 x 150 Balloon 5. Angioplasty Left Radial Artery with 2.5 x 150 Balloon 6. Angioplasty Left Brachial Artery with 5 x 100 Balloon in the Distal Artery and a 6 x 40 Balloon in the Proximal Artery (At the Anastamosis) 7. Closure of Left Femoral Arteriotomy with a ProGlide Device 8. Radiologic Supervision with Interpretation Surgeon: Eris Posadas MD Auto Body Detailer: None Anesthesia: Local and iv Sedation EBL: Minimal Specimen: None Counts: Correct Complications: None Condition: Stable Indication: The patient is a 61-year-old male with a history of end-stage renal disease who was on hemodialysis through a right internal jugular permacath but had creation of a left arm brachial artery to axillary vein AV graft. He complains of numbness and tingling in his fourth and fifth digits. He has no palpable radial pulse however this does improve with occlusion of the graft so he was set up for a diagnostic left upper extremity arteriogram with possible intervention. He was given risks, benefits, and alternative procedures and consented to procedure. Angiographic Findings: The left upper extremity arteriogram revealed that the subclavian artery was widely patent. The axillary artery was widely patent. There was approximately 50% stenosis of the brachial artery with tandem lesions both immediately proximal and distal to the anastomosis of the AV graft. The remainder of the brachial artery distal to this at approximately 30% stenosis. The ulnar artery was diffusely diseased with approximately 50% stenosis of the entire artery. The radial artery appeared to be the dominant artery with approximately 40% stenosis over the proximal two thirds of the artery and the remainder widely patent. There was obvious angiographic evidence of steal in the fistula which was improved with compression of the fistula. After intervention all areas of stenosis were widely patent with less than 10% residual stenosis. Despite the angiographic evidence of resolution of the areas of stenosis there was still obvious steal from the graft. Description of Procedure: The patient was brought to the microbiology lab analyst and laid in supine position. After he was adequately sedated his left arm was prepped and draped in normal sterile fashion. After anesthetizing the skin micropuncture technique was used to access his fistula towards the arterial limb flow and a 6 Lao sheath was placed proximal to technique. A 0.035 Glidewire and a vertebral catheter with then advanced through the arterial anastomosis and into the proximal subclavian artery. A diagnostic left upper extremity arteriogram was performed with the previously described findings. At this point I decided to remove the wire and catheter and used a 4-0 chromic in pursestring fashion to close the entry site of the AV graft access. This was then dressed with Dermabond. The patient's left groin was then prepped and draped in normal sterile fashion and ultrasound was used to identify the left common femoral artery. The overlying skin and soft tissue was anesthetized with lidocaine and a small stab incision was made. Micropuncture technique was used ultrasound guidance to the anterior surface of the left common femoral artery and a 6 Lao sheath was placed by Seldinger technique. A vertebral catheter and a 0.035 advantage wire were used to advance into the proximal aorta and eventually cannulate the left subclavian artery. The wire catheter was then advanced into the distal brachial artery and then the 0.035 advantage wire was exchanged for 0.018 V18 wire that was advanced into the distal on artery. Angioplasty of the entire arm artery was performed with a 2.5 x 150 balloon. The result was a widely patent on artery. The wire was then pulled back and advanced to the radial artery and angioplasty of the proximal half of the radial artery was performed with a 2.5 x 150 balloon. The result was a widely patent radial artery. Angioplasty in the brachial artery distal to the anastomosis performed with a 5 x 100 balloon and then angioplasty at the area of the anastomosis and the brachial artery was performed with a 6 x 40 balloon. The result again was widely patent arteries. Despite angioplasty of the areas of stenosis with an adequate result, there was still obvious angiographic steal even when the catheter was placed distal to the arterial anastomosis of the graft. At this point it was decided that the patient would require revision of his left AV graft. A ProGlide closure device was then used to close the left femoral arteriotomy. The patient tolerated the procedure well. All sponge, needle, and instrument counts were correct. The patient was taken to the recovery area in stable condition.
--- NOTE | 2017-02-10 10:32 | Short Stay Summary ---
Short Stay Documentation Date of service: 02/10/17 - History H&P: obtained from office - Allergies and Medications Current Medications: Allergies hydralazine Allergy (Verified 01/15/17 16:13) Itching Home Medications Medication Instructions Recorded Confirmed Last Taken Type Cinacalcet [Sensipar] 30 mg PO QDAY 09/23/16 01/27/17 12/11/16 22:30 History Apixaban [Eliquis] 5 mg PO Q12H 01/27/17 01/27/17 Unknown History Ipratropium/Albuter (Nf) 2 puff IH QID 01/27/17 01/27/17 Unknown History [Combivent Inhaler] Amiodarone [Cordarone 200 MG TAB] 200 mg PO BID #60 tablet 01/31/17 Unknown Rx Metoprolol [Lopressor TAB] 25 mg PO TID #90 tablet 01/31/17 Unknown Rx oxyCODONE /ACETAMINOPHEN [Percocet 1 tab PO QHS PRN #7 tablet 01/31/17 Unknown Rx 5/325 mg] - Brief post op/procedure progress note Date of procedure: 02/10/17 Pre-op diagnosis: Complications of Dialysis Access Post-op diagnosis: same Procedure: 1. Access Left AV Graft with 6 Fr Sheath Arterial 2. Diagnostic Left Upper Extremity Arteriogram (No Previous Films for Comparison) 3. Ultrasound Guided Access Left Femoral Artery 4. Angioplasty Left Ulnar Artery Artery with 2.5 x 150 Balloon 5. Angioplasty Left Radial Artery with 2.5 x 150 Balloon 6. Angioplasty Left Brachial Artery with 5 x 100 Balloon in the Distal Artery and a 6 x 40 Balloon in the Proximal Artery (At the Anastamosis) 7. Closure of Left Femoral Arteriotomy with a ProGlide Device 8. Radiologic Supervision with Interpretation Anesthesia: local, other (iv Sedation) Surgeon: DENIS NINO Estimated blood loss: minimal Pathology: none Condition: stable - Disposition Condition at discharge: Good Disposition: DC-01 TO HOME OR SELFCARE Short Stay Discharge Plan Activity: other (No strenuous activity for 24 hours) Wound: open to air, keep clean and dry, remove dressing (24 hours) Forms: AVG Arteriogram D/CInstruction, Post Arteriogram Instruct
[2017-02-10] MEDS: XYLOCAINE 2% INFILTRATI ONE ×2 (11:05→11:25)
[2017-02-10] MEDS ORDERED: ANCEF/STERILE WATER 2 GM/20 ML 2 GM/20 ML SYRINGE IV ONE (11:05)
[2017-02-10 13:46] VITALS: BP 92/66
--- NOTE | 2017-02-12 08:34 | Vascular Lab Report ---
MISCELLANEOUS VESSEL IDENTIFICATION: COMMENTS ON THE SCAN: The left common femoral artery was identified and under real-time ultrasound guidance was cannulated. IMPRESSION: Successful ultrasound guided arterial cannulation.
== END 2017-02-10 14:10 | disposition home or self-care (01) ==
LOC: CATHLABREC 09:08
PROVIDERS: ATTEND Surgery Vascular Surgery
DX: T82.590A Other mechanical complication of surgically created arteriovenous fistula, initial encounter (principal); I25.10 Atherosclerotic heart disease of native coronary artery without angina pectoris; I25.2 Old myocardial infarction; I12.0 Hypertensive chronic kidney disease with stage 5 chronic kidney disease or end stage renal disease; N18.6 End stage renal disease; Z99.2 Dependence on renal dialysis; Z88.8 Allergy status to other drugs, medicaments and biological substances; Z86.19 Personal history of other infectious and parasitic diseases; Z98.890 Other specified postprocedural states; Z79.899 Other long term (current) drug therapy; Z80.9 Family history of malignant neoplasm, unspecified; Z83.3 Family history of diabetes mellitus; Z82.49 Family history of ischemic heart disease and other diseases of the circulatory system; Y83.2 Surgical operation with anastomosis, bypass or graft as the cause of abnormal reaction of the patient, or of later complication, without mention of misadventure at the time of the procedure
CPT/HCPCS: 36415; 36901; 37246; 37247; 75710; 76937; 84132; C1751; C1760; C1769; C1887; C1894; J0690; J1644; J7040; Q9967; J2250; J3010

== ENCOUNTER 2017-02-17 08:59 | Day surgery (SDC) | payer MEDICAID ==
[~2017-02-17 08:59] MED LIST changes: +HEPARIN 10,000 UNITS/10 ML ONE; +MARCAINE 0.5% INFILTRATI ONE; +NACL 0.9% 500 ML 500 ML ONE
[2017-02-17] MEDS ORDERED: XYLOCAINE MPF 2% ONE (09:41)
[2017-02-17] MEDS ORDERED: DIPRIVAN 10 MG/ML IV ONE (09:41)
[2017-02-17] MEDS ORDERED: DILAUDID ONE (09:42)
[2017-02-17] MEDS ORDERED: ZOFRAN ONE (09:43)
[2017-02-17] MEDS ORDERED: DECADRON ONE (09:43)
[2017-02-17 09:55] LABS: Eosinophils % (Auto) 4.2 % (0.0-4.3); Hematocrit 40.1 % (35.5-45.6); Hemoglobin 12.9 gm/dl (11.8-15.2); Mean Corpuscular HGB Conc 32 % (32-34); Mean Corpuscular Hemoglobin 30 pg (28-32); Mean Corpuscular Volume 94 fl (84-94); Platelet Count 149 K/mm3 (140-440); Red Blood Count 4.24 M/mm3 (3.65-5.03); White Blood Count 4.5 K/mm3 (4.5-11.0)
[2017-02-17 10:09] LABS: BUN/Creatinine Ratio 4.32; Calcium 8.1 mg/dL (8.4-10.2); Chloride 102.6 mmol/L (98-107); Potassium 4.3 mmol/L (3.6-5.0)
--- NOTE | 2017-02-17 10:25 | Anesthesia Day of Surgery ---
Anesthesia Day of Surgery - Day of Surgery Patient Examined: Yes Patient H&P Reviewed: Yes Patient is NPO: Yes Beta Blockers: Yes (metoprolol last night)
--- NOTE | 2017-02-17 10:25 | Anesthesia Consultation ---
Anesthesia Consult and Med Hx Date of service: 02/17/17 - Airway Anesthetic Teeth Evaluation: Poor (multiple missing, broken teeth ) ROM Head & Neck: Adequate Mental/Hyoid Distance: Adequate Mallampati Class: Class II Intubation Access Assessment: Probably Good - Pre-Operative Health Status ASA Pre-Surgery Classification: ASA3 Proposed Anesthetic Plan: General - Pulmonary Hx Smoking: No Hx Asthma: No SOB: Yes (on occasion) Hx Sleep Apnea: No - Cardiovascular System Hx Hypertension: Yes (CHF) Hx Heart Attack/AMI: Yes Hx Cardia Arrhythmia: Yes (AF) Hx Peripheral Vascular Disease: Yes (left 4 and 5 fingers ischemia) - Central Nervous System Hx Seizures: No CVA: No Hx Psychiatric Problems: No - Gastrointestinal Hx Ulcer: Yes - Endocrine Hx Renal Disease: Yes (HD Thu/Thu/Thu) Hx End Stage Renal Disease: Yes Hx Liver Disease: Yes (HEP C) Hx Non-Insulin Dependent Diabetes: No Hx Thyroid Disease: No - Hematic Hx Anemia: Yes - Other Systems Hx Substance Use: Yes (Stopped using cocaine IN 1999) Hx Cancer: No
[2017-02-17] MEDS ORDERED: PEPCID IV NR (11:00)
[2017-02-17] MEDS ORDERED: VERSED IV NR (11:00)
[2017-02-17] MEDS ORDERED: AMIDATE IV ONE (11:05)
[2017-02-17] MEDS ORDERED: HEPARIN 10,000 UNITS/10 ML 2,000 UNIT in NACL 0.9% 500 ML 500 ML IR ONE (11:41)
[2017-02-17] MEDS ORDERED: RIFADIN IV ONE (11:41)
[2017-02-17] MEDS ORDERED: HEPARIN 10,000 UNITS/10 ML IV ONE (11:41)
[2017-02-17] MEDS ORDERED: RIFADIN 600 MG in NACL 0.9% 50 ML IR ONE (11:41)
[2017-02-17] MEDS ORDERED: NACL 0.9% IR ONE (11:41)
[2017-02-17] MEDS ORDERED: RIFADIN ONE (11:47)
[2017-02-17] MEDS ORDERED: NACL ONE (11:52)
[2017-02-17] MEDS ORDERED: PROAIR IH ONE (12:06)
[2017-02-17] MEDS ORDERED: MARCAINE 0.5% INFILTRATI ONE (12:25)
--- NOTE | 2017-02-17 13:02 | Short Stay Summary ---
Short Stay Documentation Date of service: 02/17/17 Narrative H&P: See H&P - Allergies and Medications Current Medications: Allergies hydralazine Allergy (Verified 01/15/17 16:13) Itching Home Medications Medication Instructions Recorded Confirmed Last Taken Type Cinacalcet [Sensipar] 30 mg PO QDAY 09/23/16 02/17/17 02/16/17 18:00 History Apixaban [Eliquis] 2.5 mg PO QDAY 01/27/17 02/17/17 02/16/17 18:00 History Ipratropium/Albuter (Nf) 2 puff IH QID 01/27/17 02/17/17 Unknown History [Combivent Inhaler] Losartan [Cozaar] 50 mg PO QDAY 02/10/17 02/17/17 02/16/17 18:00 History Metoprolol [Lopressor TAB] 25 mg PO QDAY 02/10/17 02/17/17 02/16/17 18:00 History Ondansetron [Zofran TAB] 4 mg PO Q8HR PRN 02/10/17 02/17/17 Unknown History amLODIPine [Norvasc] 10 mg PO QDAY 02/10/17 02/17/17 02/16/17 18:00 History oxyCODONE /ACETAMINOPHEN [Percocet 1 tab PO BID PRN 02/10/17 02/17/17 02/03/17 History 5/325 mg] Active Medications Famotidine (Pepcid) 20 mg IV PREOP NR Stop: 02/17/17 20:00 Last Admin: 02/17/17 10:33 Dose: 20 mg Cefazolin Sodium (Ancef/Sterile Water 2 Gm/20 Ml) 2 gm in 20 mls @ 80 mls/hr IV PREOP NR PRN Reason: Protocol Stop: 02/17/17 21:00 Sodium Chloride (Nacl 0.9% 1000 Ml) 1,000 mls @ 42 mls/hr IV DIRECT EMBER Last Admin: 02/17/17 09:54 Dose: 42 mls/hr Midazolam HCl (Versed) 2 mg IV PREOP NR Stop: 02/17/17 23:59 Last Admin: 02/17/17 10:35 Dose: 2 mg - Brief post op/procedure progress note Date of procedure: 02/17/17 Pre-op diagnosis: Complications of Dialysis Access Post-op diagnosis: same Procedure: Revision of Left Arm AVG with Proximalization of the Inflow with a 4-7 Propaten Step Graft Anesthesia: JAIMEA Surgeon: DENIS NINO Estimated blood loss: minimal Pathology: none Condition: stable - Disposition Condition at discharge: Good Disposition: DC-01 TO HOME OR SELFCARE Short Stay Discharge Plan Activity: other (No heavy lifting with left arm) Wound: open to air, keep clean and dry, other (Okay to wash the wound with soap and water but do not soak in water) Follow up with: DENIS NINO MD [Staff Physician] - 14 Days Prescriptions: Oxycodone HCl/Acetaminophen [Percocet 7.5/325 mg] 1 each PO Q6HR PRN #50 tablet PRN Reason: Pain
--- NOTE | 2017-02-17 13:08 | Operative Report ---
Operative Report Operative Report: Date of Procedure: 02/17/2017 Pre-operative Diagnosis: Complications of Dialysis Access Post-operative Diagnosis: Same Procedure(s): 1. Revision of Left Arm AVG with Proximalization of the Inflow with a 4-7 Propaten Step Graft Surgeon: Eris Posadas M.D. Campus Aide: None Anesthesia: GETA EBL: Minimal Counts: Correct Complications: None Condition: Stable Findings: Successful proximalization of the inflow of left AVG with palpable thrill and palpable radial pulse at the case. Specimen: None Indication: The patient is a 61-year-old male with a history of end-stage renal disease currently on hemodialysis through a right internal jugular permacath. He had creation of a left brachial artery to axillary vein AV graft and developed steal in his hand. He had an arteriogram to identify any proximal lesions and despite balloon and then he continued to have complaints of numbness and tingling in the hand. It was felt that he will require revision of the inflow with proximalization to improve his symptoms. He was given the risks, benefits , and alternative procedures and consented to procedure. Description of Procedure: The patient was brought to the operating room and laid in supine position. After general endotracheal anesthesia was achieved his left arm was prepped and draped in normal sterile fashion. A longitudinal incision was created just distal to the axillary crease to his previous incision and carried down to the axillary artery using sharp dissection. The artery was dissected circumferentially and controlled vessels. I then made a longitudinal incision just proximal to the antecubital crease through his previous incision and carried this down to the arterial anastomosis using sharp dissection. Using Maida-Wisharmaine tunneler to tunnel the 4-7 Propaten step graft from the proximal incision to the distal incision with a 4 mm end of the graft for the axillary artery anastomosis. I put the vessels on tension and a green arteriotomy using 11 blade and [place] scissors and then created an end-to-side anastomosis using a 6-0 Prolene in running fashion. After completing the anastomosis I released the vessel loops allow flow to the graft with excellent flow and then clamped the graft just distal to the anastomosis. I then placed an angled DeBakey clamp around the brachial artery to control flow and transect the current graft off of the artery leaving a small cuff to close the arteriotomy. The arteriotomy was closed with a 5-0 Prolene in running fashion. I then beveled the indwelling graft and cut the propaten graft to length and created an end-to- end anastomosis between the PTFE graft and the bovine graft using a 6-0 Prolene in a running fashion. Prior to completing the anastomosis of lasting venous portion as well as the arterial inflow and then completely anastomosis. Upon releasing the clamps there was a palpable thrill in the graft as well as a palpable pulse in the radial artery. Hemostasis within the gimenez was achieved with quick clot. Once hemostasis was achieved both wounds were anesthetized with Marcaine and closed in 2 layers using a 3-0 Vicryl running fashion the deep dermal layer and a 4-0 Monocryl in running fashion subcuticular. Both wounds were then dressed with Dermabond. The patient tolerated the procedure well. All sponge, needle, and instrument counts were correct. The patient was taken to the recovery area in stable condition
[2017-02-17 18:07] VITALS: BP 109/71
== END 2017-02-17 15:35 | disposition home or self-care (01) ==
LOC: OR 08:59
PROVIDERS: ATTEND Surgery Vascular Surgery
DX: T82.898A Other specified complication of vascular prosthetic devices, implants and grafts, initial encounter (principal); I13.2 Hypertensive heart and chronic kidney disease with heart failure and with stage 5 chronic kidney disease, or end stage renal disease; N18.6 End stage renal disease; I50.9 Heart failure, unspecified; D64.9 Anemia, unspecified; I48.91 Unspecified atrial fibrillation; I25.10 Atherosclerotic heart disease of native coronary artery without angina pectoris; I25.2 Old myocardial infarction; F14.21 Cocaine dependence, in remission; Z86.79 Personal history of other diseases of the circulatory system; Z86.19 Personal history of other infectious and parasitic diseases; Z99.2 Dependence on renal dialysis; Z88.8 Allergy status to other drugs, medicaments and biological substances; Z79.899 Other long term (current) drug therapy; Z98.890 Other specified postprocedural states; Z83.3 Family history of diabetes mellitus; Z82.49 Family history of ischemic heart disease and other diseases of the circulatory system; Y83.2 Surgical operation with anastomosis, bypass or graft as the cause of abnormal reaction of the patient, or of later complication, without mention of misadventure at the time of the procedure
CPT/HCPCS: 36415; 36838; 80048; 85025; C1768; J0690; J1100; J1170; J1644; J2250; J2405; J3490; J7030; J7040; J2704

== ENCOUNTER 2020-08-10 16:05 | Emergency (ER) | payer MEDICARE, MEDICAID ==
--- NOTE | 2020-08-10 17:18 | Event Note ---
ED Screening Note Date of service: 08/10/20 Time: 17:01 ED Screening Note: 65-year-old -[place] male with a history of CKD with dialysis Thursday and Thursday. Patient presents to the emergency room complaining of abdominal pain that is located around the periumbilicus that started last night. Patient states that it feels like "someone punched him in the stomach". Patient reports that the pain is constant. Denies any nausea no vomiting has had 3 stools today but denies any diarrhea. Denies any fever or chills. Recently had a negative Covid test this week. This initial assessment/diagnostic orders/clinical plan/treatment(s) is/are subject to change based on patients health status, clinical progression and re- assessment by fellow clinical providers in the ED. Further treatment and workup at subsequent clinical providers discretion. Patient/guardian urged not to elope from the ED as their condition may be serious if not clinically assessed and managed. Initial orders include:
[2020-08-10 17:51] LABS: Basophils % (Auto) 0.7 % (0.0-1.8); Eosinophils % (Auto) 0.3 % (0.0-4.3); Hematocrit 46.8 % (35.5-45.6); Hemoglobin 15.2 gm/dl (11.8-15.2); Lymphocytes # (Auto) 0.7 K/mm3 (1.2-5.4); Lymphocytes % (Auto) 13.7 % (13.4-35.0); Mean Corpuscular HGB Conc 33 % (32-34); Mean Corpuscular Volume 92 fl (84-94); Monocytes # (Auto) 0.6 K/mm3 (0.0-0.8); Monocytes % (Auto) 10.2 % (0.0-7.3); Platelet Count 174 K/mm3 (140-440); Red Cell Distribution Width 15.8 % (13.2-15.2)
[2020-08-10] MEDS ORDERED: ONDANSETRON 4 MG/2 ML INJ IV ONE (18:11)
[2020-08-10] MEDS ORDERED: MORPHINE 4 MG/1 ML INJ IV ONE (18:11)
[2020-08-10 18:12] LABS: Albumin 4.5 g/dL (3.9-5); Calcium 8.6 mg/dL (8.4-10.2)
[2020-08-10] MEDS ORDERED: PANTOPRAZOLE 40 MG INJ IV ONE (18:19)
--- NOTE | 2020-08-10 18:23 | Emergency Department Report ---
ED Abdominal Pain HPI - General Chief Complaint: Abdominal Pain Stated Complaint: STOMACH PAIN PUI?: No Time Seen by Provider: 08/10/20 18:00 Source: patient Mode of arrival: Ambulatory Limitations: No Limitations - History of Present Illness Initial Comments: Chief complaint: My stomach hurts HPI: This is a 65-year-old male with history of end-stage renal disease on hemodialysis Thursday, hypertension, heart failure, hepatitis C, atrial fibrillation who presents with abdominal pain since last night around 9 PM. Patient has not had 10 pain it feels okay to take. Patient states that he feels as if he was punched in the chest. He is concerned for food poisoning. He ate [employer] last night. He denies fever vomiting diarrhea constipation. Past surgical history includes peritoneal dialysis catheter insertion and removal several years ago. He also has had hernia repair. Left bicep AV fistula in place. According to EMR patient has systolic congestive heart failure EF 10 to 15%, diagnosed with nonischemic cardiomyopathy Nephrology Dr. Jane Cardiology Dr. Jason ALFARO Complaint: abdominal pain -: Gradual, Last night (9 PM) Location: periumbilical Migration to: no migration Severity: severe Severity scale (0 -10): 9 Quality: aching, dull Consistency: constant Improves With: nothing Worsens With: nothing Context: possible food poisoning Associated Symptoms: denies other symptoms - Related Data Home Medications Medication Instructions Recorded Confirmed Last Taken Aspirin [Adult Low Dose Aspirin EC] 81 mg PO DAILY 02/20/17 03/04/17 03/03/17 Previous Rx's Medication Instructions Recorded Last Taken Type Apixaban [Eliquis] 5 mg PO Q12HR #60 tablet 02/22/17 03/03/17 Rx Furosemide [Lasix TAB] 40 mg PO QDAY #30 02/22/17 03/03/17 Rx Levothyroxine [Synthroid] 25 mcg PO DAILY@0600 #30 tablet 02/22/17 03/03/17 Rx Metoprolol [Lopressor TAB] 25 mg PO BID #60 tablet 02/22/17 03/03/17 Rx lisinopriL [Zestril TAB] 10 mg PO QDAY #30 tablet 02/22/17 03/03/17 Rx HYDROcodone/APAP 5-325 [May 1 each PO Q6HR PRN #10 tablet 08/10/20 Unknown Rx 5/325] Ondansetron [Zofran Odt] 4 mg PO Q8HR PRN #10 tab.rapdis 08/10/20 Unknown Rx Allergies Allergy/AdvReac Type Severity Reaction Status Date / Time No Known Allergies Allergy Verified 08/10/20 16:10 ED Review of Systems ROS: Stated complaint: STOMACH PAIN Other details as noted in HPI Comment: All other systems reviewed and negative Constitutional: denies: fever, malaise Respiratory: denies: cough, shortness of breath Gastrointestinal: abdominal pain. denies: nausea, vomiting, diarrhea ED Past Medical Hx - Past Medical History Previous Medical History?: Yes Hx Hypertension: Yes Hx Heart Attack/AMI: Yes Hx Congestive Heart Failure: Yes Hx Liver Disease: Yes (HEP C) Hx Renal Disease: Yes (HD TUES/TH/SAT) Hx Seizures: No Hx Asthma: No Hx HIV: No Additional medical history: ATRIAL FIB. SINUS TACHYCARDIA - Surgical History Additional Surgical History: PD access to left lower abdomen. hernia repair, permacath. fistula left arm - Social History Smoking Status: Never Smoker Substance Use Type: None - Medications Home Medications: Home Medications Medication Instructions Recorded Confirmed Last Taken Type Aspirin [Adult Low Dose Aspirin EC] 81 mg PO DAILY 02/20/17 03/04/17 03/03/17 History Apixaban [Eliquis] 5 mg PO Q12HR #60 tablet 02/22/17 03/04/17 03/03/17 Rx Furosemide [Lasix TAB] 40 mg PO QDAY #30 02/22/17 03/04/17 03/03/17 Rx Levothyroxine [Synthroid] 25 mcg PO DAILY@0600 #30 tablet 02/22/17 03/04/17 03/03/17 Rx Metoprolol [Lopressor TAB] 25 mg PO BID #60 tablet 02/22/17 03/04/17 03/03/17 Rx lisinopriL [Zestril TAB] 10 mg PO QDAY #30 tablet 02/22/17 03/04/17 03/03/17 Rx HYDROcodone/APAP 5-325 [May 1 each PO Q6HR PRN #10 tablet 08/10/20 Unknown Rx 5/325] Ondansetron [Zofran Odt] 4 mg PO Q8HR PRN #10 tab.rapdis 08/10/20 Unknown Rx ED Physical Exam - General Limitations: No Limitations General appearance: alert, in no apparent distress, other (Pleasant jovial talkative appears comfortable) - Head Head exam: Present: atraumatic, normocephalic - Eye Eye exam: Present: normal appearance - ENT ENT exam: Present: mucous membranes moist - Neck Neck exam: Present: normal inspection, full ROM - Respiratory Respiratory exam: Present: normal lung sounds bilaterally. Absent: respiratory distress, wheezes, rales, rhonchi - Cardiovascular Cardiovascular Exam: Present: regular rate, normal rhythm, normal heart sounds. Absent: systolic murmur, diastolic murmur, rubs, gallop - GI/Abdominal GI/Abdominal exam: Present: soft, normal bowel sounds. Absent: distended, tenderness, guarding, rebound - Rectal Rectal exam: Present: deferred - Extremities Exam Extremities exam: Present: other (Left bicep fistula: Positive thrill positive b ruit clean bandage in place) - Neurological Exam Neurological exam: Present: alert, oriented X3 - Psychiatric Psychiatric exam: Present: normal affect, normal mood - Skin Skin exam: Present: warm, dry, intact, normal color. Absent: rash ED Course Vital Signs 08/10/20 08/10/20 08/10/20 16:12 19:00 19:15 Temperature 97.4 F L Pulse Rate 101 H 101 H 104 H Respiratory 18 30 H 29 H Rate Blood Pressure 173/112 146/104 160/94 O2 Sat by Pulse 84 100 97 Oximetry 08/10/20 08/10/20 08/10/20 19:30 19:45 20:00 Temperature Pulse Rate 107 H 109 H 107 H Respiratory 24 26 H 28 H Rate Blood Pressure 156/104 155/104 159/99 O2 Sat by Pulse 95 97 95 Oximetry 08/10/20 08/10/20 08/10/20 20:15 20:30 20:46 Temperature Pulse Rate 111 H 111 H 111 H Respiratory 22 22 26 H Rate Blood Pressure 154/106 160/103 166/99 O2 Sat by Pulse 96 96 95 Oximetry 08/10/20 21:00 Temperature Pulse Rate 113 H Respiratory 17 Rate Blood Pressure 158/108 O2 Sat by Pulse 98 Oximetry ED Medical Decision Making - Lab Data Result diagrams: 08/10/20 17:34 08/10/20 17:34 - Radiology Data Radiology results: report reviewed, image reviewed CHEST 1 VIEW 08/10/2020 8:03 PM INDICATION / CLINICAL INFORMATION: Dyspnea, possible pneumonia. COMPARISON: Chest one view from 03/05/2017. FINDINGS: SUPPORT DEVICES: None. HEART / MEDIASTINUM: No significant abnormality. LUNGS / PLEURA: Clear lungs. No significant pleural effusion. No pneumothorax. ADDITIONAL FINDINGS: No significant additional findings. IMPRESSION: 1. No significant abnormality of the chest. CT ABDOMEN AND PELVIS WITHOUT CONTRAST INDICATION / CLINICAL INFORMATION: abdominal pain periumbilical. TECHNIQUE: Axial CT images were obtained through the abdomen and pelvis without IV contrast. All CT scans at this location are performed using CT dose reduction for ALARA by means of automated exposure control. COMPARISON: Complete abdominal ultrasound 10/17/2016; CT abdomen pelvis 01/20/2012 FINDINGS: LOWER CHEST: Cardiomegaly with mild aortic valve calcification and multivessel coronary artery atherosclerotic calcification. Mild patchy groundglass and a segmental distribution in the anterior basal segment of the right lower lobe. HEPATOBILIARY: Subcentimeter hypodensity in the right hepatic lobe which is too small to definitively characterize, possible cyst. Calcified gallstones are present. No significant gallbladder thickening or pericholecystic fluid. No significant biliary ductal dilatation. PANCREAS/SPLEEN/ADRENALS: No significant abnormality. GENITOURINARY: Numerous renal hypodensities measuring up to 1 cm with atrophic appearance of the renal parenchyma. There are some punctate calcifications at the inferior renal poles which may represent nonobstructing nephroliths. No definite solid renal mass is evident on this noncontrast study. No obstructive uropathy. Bladder is mostly decompressed. GASTROINTESTINAL/MESENTERY: Appendix demonstrates no significant abnormality. No bowel obstruction or inflammation is evident. No free air. Small amount of perihepatic ascites. RETROPERITONEUM: No significant adenopathy. REPRODUCTIVE ORGANS: No significant abnormality. VASCULAR: Mild atherosclerotic calcification without acute abnormality. BODY WALL: Small ventral hernia in the midline just above the level of the umbilicus with minimal associated fat stranding, additionally there is a small umbilical hernia with minimal associated fat stranding. No bowel is herniated. SKELETAL SYSTEM: Diffuse degenerative change. Mild anterior wedging of L1, which appears similar when compared to CT examination from 01/20/2012. No acute fracture or aggressive aggressive osseous lesion. IMPRESSION: 1. Patchy groundglass in the right lower lobe which could represent aspiration, edema, or developing pneumonia. Recommend clinical correlation and continued follow-up as warranted. 2. Small, fat-containing ventral hernia and periumbilical hernia with mild associated fat stranding. 3. Small amount of perihepatic ascites. 4. Atrophic kidneys with numerous renal cysts and some punctate calcifications possibly representing nonobstructing nephrolithiasis. 5. Additional findings as above. Signer Name: Mack Saravia - Medical Decision Making 1. Abdominal pain: Patient explained that he has intermittent abdominal pain which requires daily medication. He is unable to recall this medication. He states that this medication takes care of the abdominal pain related to his hernia. CT abdomen pelvis revealed fat-containing ventral umbilical hernia without bowel herniation. Patient does not have evidence of obstruction or inflammatory process otherwise. Normal white count no fever abdominal pain to indicate peritonitis. Referral to general surgeon provided 2. Ground glass opacity seen on CT scan without evidence of pneumonia on chest radiograph: Patient does not have symptoms of pneumonia. He does not have symptoms of COVID-19. He has recent negative Covid test. Patient understands to return to the emergency department for fever shortness of breath or new symptoms. Patient prescribed May for pain. He is discharged home. Critical care attestation.: If time is entered above; I have spent that time in minutes in the direct care of this critically ill patient, excluding procedure time. ED Disposition Clinical Impression: Abdominal pain, Ventral hernia Disposition: DC-01 TO HOME OR SELFCARE Is pt being admited?: No Does the pt Need Aspirin: No Condition: Stable Instructions: Abdominal Pain, Adult, [id number] Prescriptions: HYDROcodone/APAP 5-325 [May 5/325] 1 each PO Q6HR PRN #10 tablet PRN Reason: Pain Ondansetron [Zofran Odt] 4 mg PO Q8HR PRN #10 tab.rapdis PRN Reason: Vomiting Referrals: RAYMOND CHERY DO [Staff Physician] - 3-5 Days
--- NOTE | 2020-08-10 19:20 | Cat Scan Report ---
CT ABDOMEN AND PELVIS WITHOUT CONTRAST INDICATION / CLINICAL INFORMATION: abdominal pain periumbilical. TECHNIQUE: Axial CT images were obtained through the abdomen and pelvis without IV contrast. All CT scans at [facility] location are performed using CT dose reduction for ALARA by means of automated exposure control. COMPARISON: Complete abdominal ultrasound 10/17/2016; CT abdomen pelvis 01/20/2012 FINDINGS: LOWER CHEST: Cardiomegaly with mild aortic valve calcification and multivessel coronary artery athero sclerotic calcification. Mild patchy groundglass and a segmental distribution in the anterior basal s egment of the right lower lobe. HEPATOBILIARY: Subcentimeter hypodensity in the right hepatic lobe which is too small to definitively characterize, possible cyst. Calcified gallstones are present. No significant gallbladder thickening or pericholecystic fluid. No significant biliary ductal dilatation. PANCREAS/SPLEEN/ADRENALS: No significant abnormality. GENITOURINARY: Numerous renal hypodensities measuring up to 1 cm with atrophic appearance of the harmony l parenchyma. There are some punctate calcifications at the inferior renal poles which may represent nonobstructing nephroliths. No definite solid renal mass is evident on this noncontrast study. No obs tructive uropathy. Bladder is mostly decompressed. GASTROINTESTINAL/MESENTERY: Appendix demonstrates no significant abnormality. No bowel obstruction or inflammation is evident. No free air. Small amount of perihepatic ascites. RETROPERITONEUM: No significant adenopathy. REPRODUCTIVE ORGANS: No significant abnormality. VASCULAR: Mild atherosclerotic calcification without acute abnormality. BODY WALL: Small ventral hernia in the midline just above the level of the umbilicus with minimal ass ociated fat stranding, additionally there is a small umbilical hernia with minimal associated fat str anding. No bowel is herniated. SKELETAL SYSTEM: Diffuse degenerative change. Mild anterior wedging of L1, which appears similar when compared to CT examination from 01/20/2012. No acute fracture or aggressive aggressive osseous lesion . IMPRESSION: 1. Patchy groundglass in the right lower lobe which could represent aspiration, edema, or developing pneumonia. Recommend clinical correlation and continued follow-up as warranted. 2. Small, fat-containing ventral hernia and periumbilical hernia with mild associated fat stranding. 3. Small amount of perihepatic ascites. 4. Atrophic kidneys with numerous renal cysts and some punctate calcifications possibly representing nonobstructing nephrolithiasis. 5. Additional findings as above. Signer Name: Mack Gr MD Signed: 08/10/2020 7:16 PM Workstation Name: [id number]
--- NOTE | 2020-08-10 20:24 | XRay Report ---
CHEST 1 VIEW 08/10/2020 8:03 PM INDICATION / CLINICAL INFORMATION: Dyspnea, possible pneumonia. COMPARISON: Chest one view from 03/05/2017. FINDINGS: SUPPORT DEVICES: None. HEART / MEDIASTINUM: No significant abnormality. LUNGS / PLEURA: Clear lungs. No significant pleural effusion. No pneumothorax. ADDITIONAL FINDINGS: No significant additional findings. IMPRESSION: 1. No significant abnormality of the chest. Signer Name: Jluis Bella MD Signed: 08/10/2020 8:19 PM Workstation Name: [id number]
[2020-08-10] MEDS ORDERED: HYDROcodone/ACETAMINOPHEN 5-325 MG TAB PO ONE (21:19)
[2020-08-10] MEDS ORDERED: ONDANSETRON 4 MG ODT TAB PO ONE (21:19)
[2020-08-10 21:42] VITALS: BP 143/98
== END 2020-08-10 21:42 | disposition home or self-care (01) ==
LOC: ED 16:05
DX: K43.9 Ventral hernia without obstruction or gangrene (principal); I11.0 Hypertensive heart disease with heart failure; I50.9 Heart failure, unspecified; I25.2 Old myocardial infarction; Z98.890 Other specified postprocedural states; Z79.899 Other long term (current) drug therapy
CPT/HCPCS: 36415; 71045; 74176; 80053; 83690; 85025; 96374; 96375; 99284; C9113; J2270; J2405; Q0162

== ENCOUNTER 2020-11-08 09:22 | Observation (INO) | payer MEDICARE ==
[2020-11-08] MEDS ORDERED: SODIUM CHLORIDE IRRI 500 ML 500 ML IR ONE (09:28)
[2020-11-08] MEDS ORDERED: ceFAZolin/Water 2 GM/20 ML 2 GM/20 ML SYRINGE IV ONE (09:29)
[2020-11-08] MEDS ORDERED: [UNRECOGNIZED DRUG - OTHER] IR ONE (09:52)
[2020-11-08 10:17] LABS: Basophils % (Auto) 0.8 % (0.0-1.8); Eosinophils # (Auto) 0.2 K/mm3 (0.0-0.4); Hematocrit 42.7 % (35.5-45.6); Lymphocytes % (Auto) 23.7 % (13.4-35.0); Mean Corpuscular HGB Conc 33 % (32-34); Mean Corpuscular Volume 91 fl (84-94); Monocytes # (Auto) 0.5 K/mm3 (0.0-0.8); Monocytes % (Auto) 11.7 % (0.0-7.3); Platelet Count 183 K/mm3 (140-440); Red Blood Count 4.68 M/mm3 (3.65-5.03); Red Cell Distribution Width 15.4 % (13.2-15.2)
[2020-11-08 10:25] LABS: INR 1.05 (0.87-1.13)
[2020-11-08 10:26] LABS: Partial Thromboplastin Time 34.1 Sec. (24.2-36.6)
[2020-11-08 10:43] LABS: Calcium 7.9 mg/dL (8.4-10.2)
[2020-11-08] MEDS ORDERED: SODIUM CHLORIDE IRRI 1000 ML 1,000 ML, .VANCOMYCIN VIAL 1,000 MG IR ONE (10:52)
--- NOTE | 2020-11-08 10:57 | Short Stay Summary ---
Short Stay Documentation Date of service: 11/08/20 - History Principal diagnosis: Cardiomyopathy H&P: obtained from office Past Medical History: atrial fib, dialysis, ESRD, hepatitis, hypertension, other (CMP, MVR) Past Surgical History: no valve replacement, no CABG, no PTCA Social history: no smoking, no alcohol abuse - Allergies and Medications Current Medications: Allergies hydralazine Adverse Reaction (Verified 11/08/20 10:18) Unknown Home Medications Medication Instructions Recorded Confirmed Last Taken Type Aspirin [Adult Low Dose Aspirin EC] 81 mg PO DAILY 02/20/17 11/08/20 03/03/17 History Apixaban [Eliquis] 5 mg PO Q12HR #60 tablet 02/22/17 11/08/20 11/05/20 Rx 5 mg Furosemide [Lasix TAB] 40 mg PO QDAY #30 02/22/17 11/08/20 03/03/17 Rx Levothyroxine [Synthroid] 25 mcg PO DAILY@0600 #30 tablet 02/22/17 11/08/20 03/03/17 Rx Metoprolol [Lopressor TAB] 25 mg PO BID #60 tablet 02/22/17 11/08/20 03/03/17 Rx lisinopriL [Zestril TAB] 10 mg PO QDAY #30 tablet 02/22/17 11/08/20 03/03/17 Rx HYDROcodone/APAP 5-325 [Purchase 1 each PO Q6HR PRN #10 tablet 08/10/20 11/08/20 Unknown Rx 5/325] Ondansetron [Zofran Odt] 4 mg PO Q8HR PRN #10 tab.rapdis 08/10/20 11/08/20 Unknown Rx Pantoprazole [Protonix] 40 mg PO QDAY 11/08/20 11/08/20 11/05/20 History 1 tab Sucroferric Oxyhydroxide(Nf) 500 mg PO TID 11/08/20 11/08/20 11/05/20 History [Velphoro (Nf)] 1 tab carvediloL [Coreg] 6.25 mg PO BID 11/08/20 11/08/20 11/05/20 History 1 tab diphenhydrAMINE [Benadryl CAP] 25 mg PO PRN PRN 11/08/20 11/08/20 Unknown History Active Medications Sodium Chloride (Nacl 0.45% 1000 Ml) 1,000 mls @ 50 mls/hr IV DIRECT EMBER - Physical exam General appearance: no acute distress Integumentary: no rash HEENT: Atraumatic, EOMI, Mucous membr. moist/pink Lungs: Clear to auscultation Heart: Normal S1, Normal S2 Gastrointestinal: normoactive bowel sounds, no tenderness Extremities: pulses intact, No edema Neurological: Normal speech, Normal tone, Sensation intact - Brief post op/procedure progress note Date of procedure: 11/08/20 Pre-op diagnosis: Cardiomyopathy Post-op diagnosis: same Procedure: ICD Implantation Surgeon: CLARISA TRISTAN Estimated blood loss: none Pathology: none Condition: stable - Hospital course Hospital course: S/p successful ICD implantation 11/08/2020. Pt tolerated procedure well. - Disposition Condition at discharge: Good Disposition: DC-01 TO HOME OR SELFCARE - Discharge Diagnoses (1) S/P ICD (internal cardiac defibrillator) procedure Status: Acute (2) Cardiomyopathy Status: Chronic (3) Mitral regurgitation Status: Chronic (4) Atrial fibrillation Status: Chronic (5) ESRD on hemodialysis Status: Chronic (6) HTN (hypertension) Status: Chronic Qualifiers: Hypertension type: essential hypertension Qualified Code(s): I10 - Essential (primary) hypertension (7) HCV (hepatitis C virus) Status: Chronic Qualifiers: Hepatic coma status: without hepatic coma Short Stay Discharge Plan Activity: other (as directed) Diet: low salt Wound: per your surgeon's advice Special Instructions: no heavy lifting Additional Instructions: Follow-up in our [place] office for incision check on 11/19/2020 @ 8am ([phone]). Follow up with: CATERINA DUMONT MD [Primary Care Provider] - 7 Days CLARISA TRISTAN MD [Staff Physician] - 10 Days (Follow-up in our [place] office for incision check on 11/19/2020 @ 8am ([phone]). )
--- NOTE | 2020-11-08 11:07 | Anesthesia Day of Surgery ---
Anesthesia Day of Surgery - Day of Surgery Patient Examined: Yes Patient H&P Reviewed: Yes Patient is NPO: Yes
--- NOTE | 2020-11-08 11:07 | Anesthesia Consultation ---
Anesthesia Consult and Med Hx Date of service: 11/08/20 - Airway Anesthetic Teeth Evaluation: Poor (multiple missing and broken teeth, denies loose teeth) ROM Head & Neck: Adequate Mental/Hyoid Distance: Adequate Mallampati Class: Class III Intubation Access Assessment: Possibly Difficult - Pulmonary Exam CTA: Yes - Cardiac Exam Cardiac Exam: RRR - Pre-Operative Health Status ASA Pre-Surgery Classification: ASA4 Proposed Anesthetic Plan: MAC - Pulmonary Hx Smoking: No Hx Respiratory Symptoms: No - Cardiovascular System Hx Hypertension: Yes Hx Coronary Artery Disease: No (nonischemic dilated cardiomyopathy EF 25-30%) Hx Percutaneous Transluminal Coronary Angioplasty (PTCA): No Hx Cardia Arrhythmia: Yes (paroxysmal A-fib) Hx Pacemaker: No Hx Internal Defibrillator: No Hx Peripheral Vascular Disease: Yes (left 4 and 5 fingers ischemia) - Central Nervous System CVA: No - Endocrine Hx End Stage Renal Disease: Yes (last HD 11/06/20) Hx Liver Disease: Yes (HCV, no hx cirrhosis) Hx Insulin Dependent Diabetes: No Hx Non-Insulin Dependent Diabetes: No Hx Thyroid Disease: No - Other Systems Hx Substance Use: Yes (previous hx cocaine use; none in 20yrs) Hx Obesity: No - Additional Comments Anesthesia Medical History Comments: No hx anesthetic complications.
[2020-11-08] MEDS ORDERED: DEXTROSE 50% IN WATER (25GM) 50 ML SYRINGE IV ONE ×3 (11:30→14:40)
[2020-11-08] MEDS ORDERED: propofoL 200 MG/20 ML VIAL IV ONE ×4 (11:35)
[2020-11-08] MEDS ORDERED: HYDROmorphone 1 MG/1 ML INJ ONE (11:35)
[2020-11-08] MEDS ORDERED: MIDAZOLAM 2 MG/2 ML INJ ONE (11:35)
[2020-11-08] MEDS ORDERED: LIDOCAINE MPF (2%) 20 MG/1 ML VIAL 5 ML ONE (11:36)
--- NOTE | 2020-11-08 12:14 | Electrocardiograph Report ---
[facility] Test Date: 2020-11-08 Test Time: 10:17:38 Pat Name: CORNELIO ORELLANA Department: Room: Gender: M Financial Services Consultant: NIDIA : 1955 Requested By: CLARISA TRISTAN Order Number: [id number] Reading MD: Jaye Miller Measurements Intervals Cut Off Rate: 70 P: 51 OK: 160 QRS: -48 QRSD: 111 T: 111 QT: 462 QTc: 499 Interpretive Statements Sinus rhythm Left anterior fascicular block Left ventricle hypertrophy with repolarization abnormalities of LVH No previous ECG available for comparison Electronically Signed On 11-08-2020 12:14:12 EDT by Jaye Miller
[2020-11-08] MEDS: SODIUM CHLORIDE 0.45% 1000 ML 1,000 ML IV SCH ×2 (12:15→18:40)
[2020-11-08] MEDS: LIDOCAINE (1%) 10 MG/1 ML VIAL 20 ML MDV ONE ×2 (12:34→12:44)
[2020-11-08] MEDS: BUPIVACAINE/PF (0.5%) 5 MG/1 ML 30 ML VIAL INFILTRATI ONE ×2 (12:34→12:44)
[2020-11-08] MEDS ORDERED: BUPIVACAINE/PF (0.5%) 5 MG/1 ML 30 ML VIAL INFILTRATI ONE (12:50)
[2020-11-08] MEDS: HYDROcodone/ACETAMINOPHEN 5-325 MG TAB PO PRN (15:55)
[2020-11-08] MEDS: ceFAZolin/NS 1 GM/50 ML 1 GM/50 ML BAG IV SCH (17:28)
[2020-11-09] MEDS: HYDROcodone/ACETAMINOPHEN 5-325 MG TAB PO PRN ×2 (00:32→10:22)
[2020-11-09] MEDS: ceFAZolin/NS 1 GM/50 ML 1 GM/50 ML BAG IV SCH (01:30)
--- NOTE | 2020-11-09 09:09 | XRay Report ---
XR chest 1V ap INDICATION / CLINICAL INFORMATION: s/p ICD implant. COMPARISON: 08/10/2020 FINDINGS: Interval placement of left-sided subcutaneous AICD. No kinking or discontinuity of the lead. Heart si ze is normal. Lungs are clear. No pneumothorax IMPRESSION: Placement of AICD without evidence of complication. Signer Name: Riley Nixon MD Signed: 11/09/2020 9:04 AM Workstation Name: [id number]
[2020-11-09 14:16] VITALS: BP 155/93
--- NOTE | 2020-11-09 14:48 | Post Anesthesia Evaluation ---
- Post Anesthesia Evaluation Patient Participated: Yes Airway Patent: Yes Stable Respiratory Function: Yes Nausea/Vomiting: No Temp > 96.8F: Yes Pain Manageable: Yes (some soreness in the operative site) Adequeate Hydration: Yes Anesthesia Complications: No Block Receding Appropriately: Not Applicable Patient on Ventilator: No Other Comments: prepares for discharge
--- NOTE | 2020-11-13 17:23 | Electrocardiograph Report ---
[facility] Test Date: 2020-11-08 Test Time: 15:06:33 Pat Name: CORNELIO ORELLANA Department: Room: A451 Gender: M Meteorological Technician: DOREEN : 1955 Requested By: CLARISA TRISTAN Order Number: [id number] Reading MD: Jaye Miller Measurements Intervals Mobile Rate: 64 P: 50 IN: 207 QRS: -57 QRSD: 125 T: 117 QT: 465 QTc: 480 Interpretive Statements Sinus rhythm Atrial premature complex Nonspecific IVCD with LAD Inferior infarct, old Anterolateral infarct, old Nonspecific T abnormalities, lateral leads Compared to ECG 11/08/2020 10:17:38 Electronically Signed On 11-13-2020 17:22:59 EDT by Jaye Miller
--- NOTE | 2020-11-13 23:07 | Electrophysiological Studies ---
ELECTROPHYSIOLOGY PROCEDURE PREPROCEDURE DIAGNOSIS: Dilated cardiomyopathy. TYPE OF PROCEDURE: Subcutaneous cardiac defibrillator implantation. DESCRIPTION OF PROCEDURE: The patient was brought to the labor relations analyst. The patient was prepped and draped in the usual sterile fashion for subcutaneous ICD. Local anesthesia was obtained with lidocaine. Ancef was given prior to the procedure for surgical prophylaxis. A 5-cm incision was made lateral to the left inframammary fold. Blunt dissection and electrocautery was used to form a pocket for the device. Incisions were made to the left of the xiphoid for electrode tunneling and fixation. Next, the electrode was tunneled from the pocket to the xiphoid and suture sleeve applied and tied down to the fascia. Then, the electrode insertion tool was advanced from the xiphoid incision up to the sternum and an 11-Korean sheath was left in place. The lead was then advanced into the sheath and the sheath peeled away. The pocket was irrigated with antibiotic containing solution. The electrode was then connected to the device and the device was inserted into the pocket. Lead impedance was measured to be normal and automatic sensing vector selection was performed. A morphology template was stored in the supine position. Successful defibrillation testing was performed. Device was programmed to final settings and closure of the incisions were began. Closure was using 2-0 Vicryl, 3-0 Vicryl, and 4-0 Vicryl. DFT TESTIN. Induction method: 50 Hz. 2. Successful at 65 joules, 20 seconds. CONCLUSION: Successful subcutaneous ICD implantation. PLAN: Incision check in 8 days. TID: [id number] RECEIPT: [id number] TAMMY/TAHIR
== END 2020-11-09 16:48 | disposition home or self-care (01) ==
LOC: CATHLABREC 09:22 → 4A 14:15
PROVIDERS: ADMIT Internal Medicine Cardiovascular Disease; ATTEND Internal Medicine Cardiovascular Disease
DX: I42.9 Cardiomyopathy, unspecified (principal); I49.9 Cardiac arrhythmia, unspecified; I12.0 Hypertensive chronic kidney disease with stage 5 chronic kidney disease or end stage renal disease; N18.6 End stage renal disease; I34.0 Nonrheumatic mitral (valve) insufficiency; B19.20 Unspecified viral hepatitis C without hepatic coma; I48.91 Unspecified atrial fibrillation; Z99.2 Dependence on renal dialysis; Z86.19 Personal history of other infectious and parasitic diseases; Z79.82 Long term (current) use of aspirin; Z95.810 Presence of automatic (implantable) cardiac defibrillator
CPT/HCPCS: 33271; 36415; 71045; 80048; 82962; 85025; 85610; 85730; 93005; 96361; 96365; 96366; 96375; 96376; G0378; J0690; J1170; J2250; J2704; J3370; J7030; 33270; C1722; C1896

== ENCOUNTER 2021-07-03 06:19 | Day surgery (SDC) | payer MEDICARE ==
[2021-07-03] MEDS ORDERED: SODIUM CHLORIDE 0.9% 1000 ML 1,000 ML IV SCH (07:30)
[2021-07-03 07:36] LABS: Basophils % (Auto) 1.2 % (0.0-1.8); Eosinophils # (Auto) 0.1 K/mm3 (0.0-0.4); Eosinophils % (Auto) 4.3 % (0.0-4.3); Hematocrit 38.5 % (35.5-45.6); Hemoglobin 12.1 gm/dl (11.8-15.2); Lymphocytes # (Auto) 0.8 K/mm3 (1.2-5.4); Lymphocytes % (Auto) 25.6 % (13.4-35.0); Mean Corpuscular HGB Conc 31 % (32-34); Mean Corpuscular Volume 94 fl (84-94); Monocytes # (Auto) 0.4 K/mm3 (0.0-0.8); Monocytes % (Auto) 11.5 % (0.0-7.3); Platelet Count 136 K/mm3 (140-440); Red Blood Count 4.11 M/mm3 (3.65-5.03); Red Cell Distribution Width 17.7 % (13.2-15.2)
[2021-07-03 07:47] LABS: INR 1.07 (0.87-1.13)
[2021-07-03 07:48] LABS: Calcium 8.5 mg/dL (8.4-10.2)
[2021-07-03 07:48] LABS: Partial Thromboplastin Time 35.7 Sec. (24.2-36.6)
--- NOTE | 2021-07-03 07:49 | Anesthesia Day of Surgery ---
Anesthesia Day of Surgery - Day of Surgery Patient Examined: Yes Patient H&P Reviewed: Yes Patient is NPO: Yes
--- NOTE | 2021-07-03 07:49 | Anesthesia Consultation ---
Anesthesia Consult and Med Hx Date of service: 07/03/21 - Airway Anesthetic Teeth Evaluation: Poor ROM Head & Neck: Adequate Mental/Hyoid Distance: Adequate Mallampati Class: Class III Intubation Access Assessment: Possibly Difficult - Pulmonary Exam CTA: Yes - Cardiac Exam Cardiac Exam: No Murmur (irregular rhythm) - Pre-Operative Health Status ASA Pre-Surgery Classification: ASA4 Proposed Anesthetic Plan: MAC - Pulmonary Hx Smoking: No Hx Respiratory Symptoms: No - Cardiovascular System Hx Hypertension: Yes (prior hx; currently baseline BP 90s/60s) Hx Coronary Artery Disease: No (nonischemic dilated cardiomyopathy EF 25-30%) Hx Heart Attack/AMI: No Hx Percutaneous Transluminal Coronary Angioplasty (PTCA): No Hx Cardia Arrhythmia: Yes (a-fib with poor rate control) Hx Pacemaker: Yes Hx Internal Defibrillator: Yes Hx Peripheral Vascular Disease: Yes - Central Nervous System CVA: No - Gastrointestinal Hx Ulcer: Yes - Endocrine Hx End Stage Renal Disease: Yes (last HD 07/02/21) Hx Liver Disease: Yes (HCV, no hx cirrhosis) Hx Insulin Dependent Diabetes: No Hx Non-Insulin Dependent Diabetes: No Hx Thyroid Disease: No - Hematic Hx Anemia: Yes - Other Systems Hx Substance Use: Yes (previous hx cocaine use; none in 20yrs) Hx Obesity: No - Additional Comments Anesthesia Medical History Comments: No hx anesthetic complications.
[2021-07-03] MEDS ORDERED: propofoL 200 MG/20 ML VIAL IV ONE (08:10)
--- NOTE | 2021-07-03 08:47 | Short Stay Summary ---
Short Stay Documentation Date of service: 07/03/21 - History H&P: obtained from office - Allergies and Medications Current Medications: Allergies hydralazine Adverse Reaction (Verified 11/08/20 10:18) Unknown Home Medications Medication Instructions Recorded Confirmed Last Taken Type Pantoprazole [Protonix TAB] 40 mg PO QDAY 11/08/20 07/03/21 07/02/21 History Sucroferric Oxyhydroxide(Nf) 500 mg PO TID 11/08/20 07/03/21 07/02/21 History [Velphoro (Nf)] Apixaban [Eliquis] 5 mg PO Q12HR #60 tablet 11/09/20 07/03/21 07/03/21 Rx carvediloL [Coreg] 6.25 mg PO BID #60 tab 11/09/20 07/03/21 07/03/21 Rx Oxymetazoline HCl [12 Hour Nasal 30 ml NS DAILY 07/03/21 07/03/21 07/02/21 History [place]] diphenhydrAMINE [Benadryl CAP] 25 mg PO Q8HR PRN 07/03/21 07/03/21 07/02/21 History Active Medications Sodium Chloride (Nacl 0.9% 1000 Ml) 1,000 mls @ 42 mls/hr IV DIRECT EMBER - Brief post op/procedure progress note Date of procedure: 07/03/21 Pre-op diagnosis: afib Post-op diagnosis: other (sinus) Procedure: cardioversion Estimated blood loss: none - Hospital course Hospital course: Patient underwent cardiorversion due to poorly controlled afib. Patient converted to normal sinus rhythm. - Disposition Condition at discharge: Good Disposition: 01 HOME / SELF CARE / HOMELESS Short Stay Discharge Plan Activity: advance as tolerated Diet: low fat, low cholesterol, low salt Additional Instructions: Follow up with Primary cardiologists in 1-2 weeks after discharge Follow up with: PRIMARY MD JULIA [Primary Care Provider] - 7 Days
--- NOTE | 2021-07-03 09:28 | Cardiac Catherization Report ---
DATE OF SERVICE: 07/03/2021 CARDIOVERSION REPORT CLINICAL INFORMATION: This is a 66-year-old male with subcutaneous AICD, atrial fibrillation, nonischemic cardiomyopathy, end-stage renal disease, on hemodialysis. The patient is having intermittent atrial flutter despite medical treatment is on Eliquis, been anticoagulated is here for HELDER cardioversion. ANESTHESIA: As per anesthesiologist. The patient was successfully cardioverted from atrial fibrillation/flutter to sinus rhythm with one 360 biphasic shock. The patient is maintaining sinus rhythm. SUMMARY: Successful cardioversion from atrial fibrillation to sinus rhythm with one successful 360 joule shock. RECOMMENDATIONS: The patient will maintain current medications. The patient tolerated the procedure well. TID: [id number] RECEIPT: [id number] ARTI/LAMINE
[2021-07-03 11:13] VITALS: BP 111/74
--- NOTE | 2021-07-03 13:26 | Electrocardiograph Report ---
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
--- NOTE | 2021-07-03 13:30 | Electrocardiograph Report ---
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
== END 2021-07-03 11:52 | disposition home or self-care (01) ==
LOC: CATHLABREC 06:19
PROVIDERS: ATTEND Internal Medicine
DX: I48.91 Unspecified atrial fibrillation (principal); I48.4 Atypical atrial flutter; I42.0 Dilated cardiomyopathy; I13.2 Hypertensive heart and chronic kidney disease with heart failure and with stage 5 chronic kidney disease, or end stage renal disease; I50.23 Acute on chronic systolic (congestive) heart failure; N18.6 End stage renal disease; E78.00 Pure hypercholesterolemia, unspecified; E03.9 Hypothyroidism, unspecified; Z79.899 Other long term (current) drug therapy; Z98.890 Other specified postprocedural states; Z88.8 Allergy status to other drugs, medicaments and biological substances
CPT/HCPCS: 36415; 80048; 85025; 85610; 85730; 92960; 93005; J2704; J7030; J7120; Q0162